=== PATIENT | female | born 1945 | race Caucasian/White ===

== ENCOUNTER 2016-04-30 16:02 | Emergency (ER) | payer MEDICARE, OTHER ==
--- NOTE | 2016-04-30 16:14 | ERPHSYRPT ---
- History of Present Illness Time Seen by Provider: 04/30/16 16:09 Source: patient, EMS Exam Limitations: no limitations Physician History: The patient is a 71-year-old female brought in by ambulance from [place] where the patient tripped in the parking lot of a grocery store and struck her right side of her face on the asphalt. She complains of right cheek and facial pain around the right eye. Her most severe pain is in her right upper arm. She did not lose consciousness. She's had a similar incident of the right eye in the past where she's had surgery to repair the orbit. Last week she had a cardiac catheter. Her past medical history significant for repair of her right orbital fracture and diabetes. Occurred: just prior to arrival Reason for Fall: tripped Injuries/Pain Location: face Loss of Consciousness: no loss of consciousness Quality: sharpness Severity of Pain-Max: severe Severity of Pain-Current: severe Modifying Factors: Improves With: immobilization Associated Symptoms (Fall): headache Allergies/Adverse Reactions: adhesive Allergy (Verified 04/30/16 16:15) latex Allergy (Verified 04/30/16 16:15) Penicillins Allergy (Verified 04/30/16 16:15) meperidine HCl [From Demerol] Adverse Reaction (Verified 04/30/16 16:15) nifedipine [From Procardia] Adverse Reaction (Verified 04/30/16 16:15) Home Medications: Chlorthalidone 25 mg PO DAILY 04/30/16 [History] Fluticasone Propionate [Flonase NASAL] 16 gm NS DAILY 04/30/16 [History] Isosorbide Mononitrate 30 mg [Imdur 30 MG] 30 mg PO DAILY 04/30/16 [History ] Hx Tetanus, Diphtheria Vaccination/Date Given: Yes Hx Influenza Vaccination/Date Given: No Hx Pneumococcal Vaccination/Date Given: Yes (Prevnar 13 on 09/14/2015) - Review of Systems Constitutional: No Fever, No Chills Eyes: Eye Pain Ears, Nose, & Throat: No Symptoms Respiratory: No Cough, No Dyspnea Cardiac: No Chest Pain, No Edema, No Syncope Abdominal/Gastrointestinal: No Abdominal Pain, No Nausea, No Vomiting, No Diarrhea Genitourinary Symptoms: No Dysuria Musculoskeletal: Fall, Injury Skin: No Rash Neurological: No Dizziness, No Focal Weakness, No Sensory Changes Psychological: No Symptoms Endocrine: No Symptoms Hematologic/Lymphatic: No Symptoms Immunological/Allergic: No Symptoms All Other Systems: Reviewed and Negative - Past Medical History Pertinent Past Medical History: Yes Neurological History: No Pertinent History ENT History: Cataracts Cardiac History: Hypertension, Myocardial Infarction ([place]) Respiratory History: Sleep Apnea Endocrine Medical History: Diabetes Type II Musculoskeletal History: Arthritis GI Medical History: Gallbladder Disease History: No Pertinent History Psycho-Social History: No Pertinent History Female Reproductive Disorders: No Pertinent History Other Medical History: CPAP, double by pass, [address] in left ventrical, - Past Surgical History Past Surgical History: Yes Neuro Surgical History: No Pertinent History Cardiac: CABG, Cardiac Catheterization, Cardiac Stent Respiratory: No Pertinent History Gastrointestinal: Cholecystectomy Genitourinary: No Pertinent History Musculoskeletal: Joint Replacement Female Surgical History: Hysterectomy Other Surgical History: KNEE REPLACEMENT - APPENDECTOMY - Social History Smoking Status: Former smoker Exposure to second hand smoke: No Drug Use: none Patient Lives Alone: No - Female History Hx Now: No - Nursing Vital Signs Nursing Vital Signs: Initial Vital Signs Pulse Rate 90 Respiratory Rate 16 Blood Pressure [] 157/83 Pain Intensity 10 - Manuel Coma Score Best Eye Response (Manuel): (4) open spontaneously Best Verbal Response (Manuel): (5) oriented Best Motor Response (Manuel): (6) obeys commands [place] Total: 15 - Physical Exam General Appearance: mild distress Head Injury: swelling, tenderness (right cheek) Eye Exam: PERRL/EOMI, eyes nml inspection ENT Exam: airway nml Neck Exam: normal inspection, No tenderness Respiratory/Chest Exam: normal breath sounds, No chest tenderness, No respiratory distress Cardiovascular Exam: normal heart sounds, regular rate/rhythm Gastrointestinal Exam: soft, No tenderness, No distention, No guarding, No ecchymosis Rectal Exam: not done Back Exam: normal inspection, No vertebral tenderness Extremity Exam: pelvis stable, limited range of motion (right upper arm), evidence of injury, pain with movement, No deformities Neurologic Exam: alert, oriented x 3, cooperative, sensation nml, No motor deficits Skin Exam: normal color, warm, dry SpO2 Interpretation: normal Oxygen Delivery: Room Air - Radiology Exams Right Humerus X-ray Interpretation: Teleradiologist Report, Displaced Fracture Left Hand X-ray Interpretation: Interpreted by me, Negative, No Fracture - CT Exams Cervical Spine CT Interpretation: Negative, Tele-radiologist Report, Other (neg) Head CT Interpretation: Negative, Tele-radiologist Report Other CT Interpretation: Tele-radiologist Report, Other (maxillary sinus fx) Ordered Tests: Active Orders 24 hr Category Date Time Status IV Insertion STAT Care 04/30/16 16:59 Active CERVICAL SPINE WO CONTRAST [CT] Stat Exams 04/30/16 16:13 Completed FACIAL BONES WO CONTRAST [CT] Stat Exams 04/30/16 16:12 Completed HAND (MINIMUM 3 VIEWS) Stat Exams 04/30/16 17:27 Taken HEAD WITHOUT CONTRAST [CT] Stat Exams 04/30/16 16:11 Completed HUMERUS Stat Exams 04/30/16 16:11 Completed Medication Summary Discontinued Medications Generic Name Dose Route Start Last Admin Trade Name Freq PRN Reason Stop Dose Admin Morphine Sulfate 4 mg 04/30/16 17:11 04/30/16 17:15 Morphine Sulfate 4 Mg Inj IV 04/30/16 17:12 4 mg STAT ONE Administration Morphine Sulfate Confirm 04/30/16 17:14 Morphine Sulfate 4 Mg Inj Administered 04/30/16 17:15 Dose 4 mg .ROUTE .STK-MED ONE Ondansetron HCl 4 mg 04/30/16 17:11 04/30/16 17:15 Zofran 4 Mg/2 Ml Vial IV 04/30/16 17:12 4 mg STAT ONE Administration Ondansetron HCl Confirm 04/30/16 17:14 Zofran 4 Mg/2 Ml Vial Administered 04/30/16 17:15 Dose 4 mg .ROUTE .STK-MED ONE - Progress Progress: improved - Departure Time of Disposition: 17:57 Departure Disposition: Transfer (transfer to [facility] ED per Dr Sandy.) Clinical Impression: Humerus fracture, Maxillary sinus fracture Condition: Stable Critical Care Time: No Referrals: SULAIMAN MITCHELL MD [Primary Care Provider] -
--- NOTE | 2016-04-30 17:00 | XRAY ---
Indication: Pain following fall. Comparison: None 2 views of the right humerus demonstrates comminuted humeral head fracture and displaced/angulated subcapital fracture. Humeral head inferiorly displaced concerning for subluxation/dislocation. No other bony, articular, or soft tissue abnormalities.
--- NOTE | 2016-04-30 17:10 | XRAY ---
Indication: Pain following fall. Multiple contiguous axial images obtained through the cervical spine. Sagittal and coronal reformatted images obtained. Comparison: None Axial images negative for acute fracture, suspicious bony lesions, or spinal canal stenosis. Mild multilevel bilateral degenerative facet arthropathy and minimal C4-C7 endplate spurring. Sagittal and coronal reformatted images demonstrates normal alignment with minimal C6-C7 disc space narrowing. No acute compression fracture, subluxation, or jumped facet. Normal-appearing craniocervical junction. Visualized noncontrasted soft tissues demonstrates mild carotid calcifications bilaterally. Base of the brain and lung apices unremarkable. Impression: 1. Negative for acute fracture/subluxation. 2. Multilevel degenerative changes. CTDI 135.85
[2016-04-30] MEDS ORDERED: MORPHINE SULFATE 4 MG INJ IV ONE ×2 (17:11→18:42)
[2016-04-30] MEDS ORDERED: Zofran 4 MG/2 ML VIAL IV ONE (17:11)
[2016-04-30] MEDS ORDERED: Zofran 4 MG/2 ML VIAL ONE (17:14)
[2016-04-30] MEDS ORDERED: MORPHINE SULFATE 4 MG INJ ONE ×2 (17:14→18:43)
--- NOTE | 2016-04-30 17:18 | XRAY ---
Indication: Facial injury following fall. Multiple contiguous axial images obtained through the facial bones. Sagittal and coronal reformatted images obtained. Comparison: None There is right facial soft tissue swelling/bruising. Mild depressed acute fracture involving the anterior wall of the right maxillary sinus with fluid leveling. There is also remote appearing fracture involving the floor the right orbit. No extraocular muscle entrapment. No other acute fracture, suspicious bony lesions, or radiopaque foreign body. Minimal mucosal thickening of both ethmoid sinuses. Remaining left maxillary sinus, visualized frontal sinuses, and mastoid air cells are clear. Visualized noncontrasted soft tissues including orbits and base of the brain unremarkable. Impression: Depressed acute fracture involving the anterior wall of the right maxillary sinus with fluid leveling and facial soft tissue swelling/bruising. Incidental old right orbital floor fracture. CTDI 59.47
--- NOTE | 2016-04-30 17:20 | XRAY ---
Indication: Status post fall. Multiple contiguous axial images obtained through the head without contrast. Comparison: None Age-appropriate global atrophy and minimal periventricular degenerative microvascular ischemia. No acute intracranial hemorrhage, abnormal extra-axial fluid collection, or mass effect. Fourth ventricle is midline without hydrocephalus. Bony calvarium intact. CT facial bones and CT cervical spine reported separately. Impression: Nonacute senile brain. CTDI 51.47
[2016-04-30 18:31] VITALS: BP 162/71; PULSE 92; O2SAT 89
--- NOTE | 2016-05-01 08:37 | XRAY ---
Indication: Pain following fall. Comparison: None 3 views of the left hand demonstrates advanced degenerative changes of the first metacarpal multangular articulation, radiocarpal degenerative joint space narrowing, and a few tiny soft tissue calcified granulomas. No acute findings or suspicious bony lesions.
== END 2016-04-30 18:52 | disposition short-term general hospital (02) ==
LOC: ED 16:02
DX: S42.291A Other displaced fracture of upper end of right humerus, initial encounter for closed fracture (principal); S02.40CA Maxillary fracture, right side, initial encounter for closed fracture; W01.0XXA Fall on same level from slipping, tripping and stumbling without subsequent striking against object, initial encounter; Y93.01 Activity, walking, marching and hiking; Y92.512 Supermarket, store or market as the place of occurrence of the external cause; R51 Headache; E11.9 Type 2 diabetes mellitus without complications; I10 Essential (primary) hypertension; I25.2 Old myocardial infarction
CPT/HCPCS: 36000; 70450; 70486; 72125; 73060; 73130; 96374; 96375; 96376; 99284; 99285; J2270; J2405

== ENCOUNTER 2017-07-25 22:18 | Emergency (ER) | payer MEDICARE, OTHER ==
[2017-07-25 22:34] VITALS: BP 162/93; PULSE 66; O2SAT 95
--- NOTE | 2017-07-25 22:44 | ERPHSYRPT ---
- History of Present Illness Time Seen by Provider: 07/25/17 22:41 Source: patient Exam Limitations: no limitations Patient Subjective Stated Complaint: pt states she tripped on a rug and fell, landing on her right knee and right elbow; pt has h/o bilateral knee replacement ; denies hitting her head or any loss consciousness. Triage Nursing Assessment: pt a& x3; skin p, w, & d; ecchymosis and +2 edema noted to right knee; minor abrasion to right elbow; no other distress noted; assisted to room per wheelchair; family at bedside. Physician History: pt states she tripped on a rug and fell, landing on her right knee and right elbow; pt has h/o bilateral knee replacement; Method of Injury: fell Occurred: just prior to arrival Lower Extremities Pain: knee: right Allergies/Adverse Reactions: adhesive Allergy (Verified 07/25/17 22:34) latex Allergy (Verified 07/25/17 22:34) Penicillins Allergy (Verified 07/25/17 22:34) meperidine HCl [From Demerol] Adverse Reaction (Verified 07/25/17 22:34) nifedipine [From Procardia] Adverse Reaction (Verified 07/25/17 22:34) Home Medications: Fluticasone Propionate [Flonase NASAL] 16 gm NS DAILY 04/30/16 [History] Isosorbide Mononitrate 30 mg [Imdur 30 MG] 30 mg PO DAILY 04/30/16 [History ] Acetaminophen 325 mg [Tylenol 325 mg] 650 mg PO Q6H PRN PRN 07/25/17 [ History] Amlodipine Besylate 5 mg [Norvasc 5 mg] 5 mg PO DAILY 07/25/17 [History] Apixaban [Eliquis 5 mg Tablet] 5 mg PO BID 07/25/17 [History] Aspirin 81 gm Chew [Baby Aspirin 81 mg Chew] 81 mg PO DAILY 07/25/17 [ History] Atorvastatin Calcium [Lipitor 40Mg] 40 mg PO DAILY 07/25/17 [History] Glipizide [Glipizide ER] 10 mg PO BID 07/25/17 [History] Magnesium Oxide 400 mg [Mag-Ox 400] 400 mg PO DAILY 07/25/17 [History] Metformin HCl 1,000 mg PO BID 07/25/17 [History] Nitroglycerin 0.4 mg Tablet [Nitrostat 0.4 MG Tablet] 0.4 mg PO Q5MIN PRN MR X 3 PRN 07/25/17 [History] Omeprazole 20 MG [Prilosec 20 mg] 20 mg PO DAILY 07/25/17 [History] Pregabalin [Lyrica 150Mg] 150 mg PO BID 07/25/17 [History] Sitagliptin Phosphate 50 MG [Januvia 50 MG] 50 mg PO DAILY 07/25/17 [ History] Torsemide 20 mg PO DAILY 07/25/17 [History] Hx Tetanus, Diphtheria Vaccination/Date Given: Yes Hx Influenza Vaccination/Date Given: Yes Hx Pneumococcal Vaccination/Date Given: Yes Immunizations Up to Date: Yes - Review of Systems Constitutional: No Symptoms Eyes: No Symptoms Ears, Nose, & Throat: No Symptoms Respiratory: No Symptoms Cardiac: No Symptoms Abdominal/Gastrointestinal: No Symptoms Musculoskeletal: Fall, Joint Pain, Joint Swelling Skin: No Symptoms - Past Medical History Pertinent Past Medical History: Yes Neurological History: No Pertinent History ENT History: Cataracts Cardiac History: Hypertension, Myocardial Infarction ([place]) Respiratory History: Sleep Apnea Endocrine Medical History: Diabetes Type II Musculoskeletal History: Arthritis GI Medical History: Gallbladder Disease History: No Pertinent History Psycho-Social History: No Pertinent History Female Reproductive Disorders: No Pertinent History Other Medical History: CPAP, double by pass, [address] in left ventrical, - Past Surgical History Past Surgical History: Yes Neuro Surgical History: No Pertinent History Cardiac: CABG, Cardiac Catheterization, Cardiac Stent Respiratory: No Pertinent History Gastrointestinal: Cholecystectomy Genitourinary: No Pertinent History Musculoskeletal: Joint Replacement Female Surgical History: Hysterectomy Other Surgical History: KNEE REPLACEMENT - APPENDECTOMY - Social History Smoking Status: Former smoker Exposure to second hand smoke: No Drug Use: none Patient Lives Alone: No - Female History Hx Last Menstrual Period: hysterectomy - Nursing Vital Signs Nursing Vital Signs: Initial Vital Signs Temperature 97.5 F 07/25/17 22:24 Pulse Rate 66 07/25/17 22:24 Respiratory Rate 18 07/25/17 22:24 Blood Pressure 162/93 07/25/17 22:24 O2 Sat by Pulse Oximetry 95 05/12/18 22:24 Pain Scale Pain Intensity 8 - Physical Exam General Appearance: no apparent distress Eyes, Ears, Nose, Throat Exam: normal ENT inspection Neck Exam: normal inspection Cardiovascular/Respiratory Exam: chest non-tender Knees Exam: right knee: ecchymosis, joint effusion, soft tissue tenderness, swelling SpO2: 95 Oxygen Delivery: Room Air - Radiology Exams Knee X-ray Interpretation: Reviewed by me, Negative, No Fracture Ordered Tests: Active Orders 24 hr Category Date Time Status KNEE (3 VIEWS) Stat Exams 07/25/17 22:10 Taken - Progress Progress: improved, pain not gone completely Counseled pt/family regarding: diagnosis, need for follow-up, rad results - Departure Time of Disposition: 00:04 Departure Disposition: Home Clinical Impression: Contusion, knee and lower leg Qualifiers: Encounter type: initial encounter Laterality: right Qualified Code(s): S80.01XA - Contusion of right knee, initial encounter; S80.11XA - Contusion of right lower leg, initial encounter; S80.11XA - Contusion of right lower leg, initial encounter Condition: Stable Critical Care Time: No Referrals: SULAIMAN MITCHELL MD [Primary Care Provider] - Instructions: Contusion (DC), Preventing Falls
--- NOTE | 2017-07-26 07:48 | XRAY ---
Indication: Pain, swelling, and bruising following fall. Comparison: June 05, 2013. 3 views of the right knee demonstrates new anterior soft tissue swelling without acute fracture/dislocation. Stable mild osteopenia, total knee arthroplasty with intact, minimal vascular calcifications, medial vascular clips, and medial soft tissue calcified granulomas. No other bony, articular, or soft tissue abnormalities.
== END 2017-07-25 23:15 | disposition home or self-care (01) ==
LOC: ED 22:18
DX: S80.01XA Contusion of right knee, initial encounter (principal); S80.11XA Contusion of right lower leg, initial encounter; M25.561 Pain in right knee; M25.521 Pain in right elbow; Z96.653 Presence of artificial knee joint, bilateral; Z79.82 Long term (current) use of aspirin; Z79.899 Other long term (current) drug therapy; W01.0XXA Fall on same level from slipping, tripping and stumbling without subsequent striking against object, initial encounter
CPT/HCPCS: 73562; 99283

== ENCOUNTER 2020-02-20 14:06 | Observation (INO) | payer MEDICARE, OTHER ==
[2020-02-20] MEDS ORDERED: Sodium Chloride 0.9% 1000 ML 1,000 ML IV SCH (14:45)
[2020-02-20] MEDS ORDERED: DECADRON 10MG INJ. IV ONE (14:48)
[2020-02-20] MEDS ORDERED: Sodium Chloride 0.9% 1000 ML 1,000 ML ONE (15:09)
[2020-02-20] MEDS ORDERED: DECADRON 10MG INJ. ONE (15:09)
[2020-02-20 15:20] LABS: Hematocrit 32.5 % (35-47); Mean Cell Volume 99.7 fl (78-100); Mean Corpuscular Hemoglobin 30.7 pg (26-32); Mean Corpuscular Hgb Concent. 30.8 g/dl (32-36); Mean Platelet Volume 12.1 fl (7.5-11.0); Platelet Count 90 K/mm3 (150-450); Red Blood Count 3.26 M/mm3 (4.1-5.4); Red Cell Distribution Width 15.9 % (11.5-14.0); White Blood Count 3.9 K/mm3 (4.0-10.5)
--- NOTE | 2020-02-20 15:26 | ERPHSYRPT ---
- History of Present Illness Time Seen by Provider: 02/20/20 14:20 Source: patient Exam Limitations: no limitations Patient Subjective Stated Complaint: Pt c/o of shortness of breath, wheezing, loss of taste and smell, diarrhea, pt was around her daughter at [facility] a nd her daughter has tested positive for covid, pt wears 3L NC at home Triage Nursing Assessment: Pt was brought to the ER by a family member, pt immediately went to the restroom to have a bowel movement therefore an EKG was not obtained immediately upon arrival, pts O2 was 82% on room air and was placed on 3L and is now at 95%, landry upper lobes clear, lower lobes diminished, lethargic, pulses normal, cellulitis to landry lower ext, rates chest pain as 4/10 when she coughs, skin n/w/d Physician History: Patient is a 74-year-old female presents to our ED for evaluation of shortness of breath cough chest pain and wheezing. Patient believes that she may have Covid. Patient was exposed to Covid. She also complains of loss of taste and smell. Patient has had multiple bouts of diarrhea as well. Patient states she was exposed to Covid on [facility]. Patient shortness of breath has been progressive. Patient normally wears 3 L of oxygen at home. In spite of wearing her oxygen patient has been experiencing shortness of breath. Upon arrival to our ED patient did not have her oxygen. O2 sat on the monitor was 82% on there. However after application of 3 L oxygen O2 sat increased baseline. Symptoms are constant. Symptoms are moderate in intensity. No specific worsening or improving factors. Patient voices no other complaints or concerns at this time. Timing/Duration: day(s) (3 days ago) Severity: moderate Modifying Factors: Improves With: nothing Associated Symptoms: shortness of breath, cough, other (Area, loss of taste and loss of smell.) Allergies/Adverse Reactions: adhesive Allergy (Verified 02/20/20 14:42) latex Allergy (Verified 02/20/20 14:42) Penicillins Allergy (Verified 02/20/20 14:42) meperidine HCl [From Demerol] Adverse Reaction (Verified 02/20/20 14:42) nifedipine [From Procardia] Adverse Reaction (Verified 02/20/20 14:42) Home Medications: Fluticasone Propionate [Flonase NASAL] 16 gm NS DAILY 04/30/16 [History] Isosorbide Mononitrate 30 mg [Imdur 30 MG] 30 mg PO DAILY 04/30/16 [History] Acetaminophen 325 mg [Tylenol 325 mg] 650 mg PO Q6H PRN PRN 07/25/17 [History] Amlodipine Besylate 5 mg [Norvasc 5 mg] 5 mg PO DAILY 07/25/17 [History] Apixaban [Eliquis 5 mg Tablet] 5 mg PO BID 07/25/17 [History] Aspirin 81 gm Chew [Baby Aspirin 81 mg Chew] 81 mg PO DAILY 07/25/17 [History] Atorvastatin Calcium [Lipitor 40Mg] 40 mg PO DAILY 07/25/17 [History] Glipizide [Glipizide ER] 10 mg PO UD PRN 07/25/17 [History] Magnesium Oxide 400 mg [Mag-Ox 400] 400 mg PO DAILY 07/25/17 [History] Metformin HCl 1,000 mg PO BID 07/25/17 [History] Nitroglycerin 0.4 mg Tablet [Nitrostat 0.4 MG Tablet] 0.4 mg PO Q5MIN PRN MR X 3 PRN 07/25/17 [History] Omeprazole 20 MG [Prilosec 20 mg] 20 mg PO DAILY 07/25/17 [History] Pregabalin [Lyrica 150Mg] 150 mg PO BID 07/25/17 [History] Sitagliptin Phosphate 50 MG [Januvia 50 MG] 50 mg PO DAILY 07/25/17 [History] Torsemide 20 mg PO DAILY 07/25/17 [History] Metoprolol Tartrate 50 mg [Lopressor 50 MG] 50 mg PO BID 02/20/20 [History] Hx Tetanus, Diphtheria Vaccination/Date Given: Yes Hx Influenza Vaccination/Date Given: Yes Hx Pneumococcal Vaccination/Date Given: Yes Travel Risk - International Travel Have you traveled outside of the country in past 3 weeks: No - Coronavirus Screening Are you exhibiting any of the following symptoms?: Yes Symptoms: Fever, Cough: New Onset, Shortness of Breath, Vomiting/Diarrhea, Loss of Taste or Smell Close contact with a COVID-19 positive Pt in past 14-21 Days: Yes - Review of Systems Constitutional: No Symptoms, No Fever, No Chills Eyes: No Symptoms Ears, Nose, & Throat: No Symptoms Respiratory: No Symptoms, No Cough, No Dyspnea Cardiac: No Symptoms, No Chest Pain, No Edema, No Syncope Abdominal/Gastrointestinal: No Symptoms, No Abdominal Pain, No Nausea, No Vomiting, No Diarrhea Genitourinary Symptoms: No Symptoms, No Dysuria Musculoskeletal: No Symptoms, No Back Pain, No Neck Pain Skin: No Symptoms, No Rash Neurological: No Symptoms, No Dizziness, No Focal Weakness, No Sensory Changes Psychological: No Symptoms Endocrine: No Symptoms Hematologic/Lymphatic: No Symptoms Immunological/Allergic: No Symptoms All Other Systems: Reviewed and Negative - Past Medical History Pertinent Past Medical History: Yes Neurological History: No Pertinent History ENT History: Cataracts Cardiac History: Hypertension, Myocardial Infarction ([place]) Respiratory History: Sleep Apnea Endocrine Medical History: Diabetes Type II Musculoskeletal History: Arthritis GI Medical History: Gallbladder Disease History: No Pertinent History Psycho-Social History: No Pertinent History Female Reproductive Disorders: No Pertinent History Other Medical History: CPAP, double by pass, [address] in left ventrical, - Past Surgical History Past Surgical History: Yes Neuro Surgical History: No Pertinent History Cardiac: CABG, Cardiac Catheterization, Cardiac Stent Respiratory: No Pertinent History Gastrointestinal: Appendectomy, Cholecystectomy Genitourinary: No Pertinent History Musculoskeletal: Joint Replacement Female Surgical History: Hysterectomy Other Surgical History: KNEE REPLACEMENT - Social History Smoking Status: Former smoker Exposure to second hand smoke: No Drug Use: none Patient Lives Alone: No - Female History Hx Now: No - Nursing Vital Signs Nursing Vital Signs: Initial Vital Signs Temperature 99.0 F 02/20/20 14:15 Pulse Rate 67 02/20/20 14:15 Respiratory Rate 13 02/20/20 14:15 Blood Pressure 168/76 02/20/20 14:15 O2 Sat by Pulse Oximetry 95 02/20/20 14:15 Pain Scale Pain Intensity 6 - Physical Exam General Appearance: no apparent distress, alert Eye Exam: PERRL/EOMI, eyes nml inspection Ears, Nose, Throat Exam: normal ENT inspection, TMs normal, pharynx normal, moist mucous membranes Neck Exam: normal inspection, non-tender, supple, full range of motion Respiratory Exam: normal breath sounds, lungs clear, No respiratory distress Cardiovascular Exam: regular rate/rhythm, normal heart sounds, normal peripheral pulses Gastrointestinal/Abdomen Exam: soft, normal bowel sounds, No tenderness, No mass Back Exam: normal inspection, normal range of motion, No CVA tenderness, No vertebral tenderness Extremity Exam: normal inspection, normal range of motion, pelvis stable, other (Patient does not have bilateral lower extremity cellulitis. Patient has chronic skin changes from what appears to be venous insufficiency.) Neurologic Exam: alert, oriented x 3, cooperative, normal mood/affect, nml cerebellar function, nml station & gait, sensation nml, No motor deficits Skin Exam: normal color, warm, dry, No rash Lymphatic Exam: No adenopathy SpO2 Interpretation: normal SpO2: 95 O2 Delivery: Room Air - Course Nursing assessment & vital signs reviewed: Yes - Radiology Exams Chest X-ray Interpretation: Teleradiologist Report (Bilateral patchy alveolar opacities. Cardiomegaly) Ordered Tests: Active Orders 24 hr Category Date Time Status Watch Assembly Instructor STAT Care 02/20/20 14:46 Active EKG-ER Only STAT Care 02/20/20 14:44 Active IV Insertion STAT Care 02/20/20 14:44 Active Pulse Oximetry (ED) STAT Care 02/20/20 14:44 Active CHEST 1 VIEW (PORTABLE) Stat Exams 02/20/20 14:46 Completed CBC W DIFF Stat Lab 02/20/20 15:10 Completed CMP Stat Lab 02/20/20 15:10 Completed D-DIMER QUANTITATIVE Stat Lab 02/20/20 15:10 Completed INFLUENZA A+B ADRIAN Stat Lab 02/20/20 15:15 Completed Lactic Acid Stat Lab 02/20/20 14:44 Completed MAGNESIUM Stat Lab 02/20/20 15:10 Completed Manual Differential NC Stat Lab 02/20/20 15:10 Completed TROPONIN Q3H Lab 02/20/20 15:10 Completed TROPONIN Q3H Lab 02/20/20 18:00 Ordered TROPONIN Q3H Lab 02/20/20 21:00 Ordered TROPONIN Q3H Lab 02/21/20 00:00 Ordered TROPONIN Q3H Lab 02/21/20 03:00 Ordered UA W/RFX UR CULTURE Stat Lab 02/20/20 14:46 Ordered Medication Summary Generic Name Dose Route Start Last Admin Trade Name Freq PRN Reason Stop Dose Admin Sodium Chloride 1,000 mls @ 50 mls/hr 02/20/20 14:45 02/20/20 15:11 Sodium Chloride 0.9% 1000 Ml IV 03/21/20 14:44 50 mls/hr .Q20H TANMAY Administration Discontinued Medications Generic Name Dose Route Start Last Admin Trade Name Tk PRN Reason Stop Dose Admin Dexamethasone Sodium Phosphate 8 mg 02/20/20 14:48 02/20/20 15:11 Decadron 10mg Inj. IV 02/20/20 14:49 8 mg STAT ONE Administration Dexamethasone Sodium Phosphate Confirm 02/20/20 15:09 Decadron 10mg Inj. Administered 02/20/20 15:10 Dose 10 mg .ROUTE .[employer] ONE Lab/Rad Data: Laboratory Result Diagrams 02/20/20 15:10 02/20/20 15:10 Laboratory Results 02/20/20 02/20/20 02/20/20 Range/Units 15:15 15:10 15:10 WBC (4.0-10.5) K/mm3 RBC (4.1-5.4) M/mm3 Hgb (12.0-16.0) gm/dl Hct (35-47) % MCV (78-100) fl MCH (26-32) pg MCHC (32-36) g/dl RDW (11.5-14.0) % Plt Count (150-450) K/mm3 MPV (7.5-11.0) fl Segmented Neutrophils (36.0-66.0) % Band Neutrophils (0.0-2.0) % Lymphocytes (Manual) (24-44) % Monocytes (Manual) (0.0-12.0) % Toxic Granulation Platelet Estimate (NORMAL) RBC Morphology Anisocytosis D-Dimer 1961 H* (215-500) ng/mL Sodium (137-145) mmol/L Potassium (3.5-5.1) mmol/L Chloride (98-107) mmol/L Carbon Dioxide (22-30) mmol/L Anion Gap (5-15) MEQ/L BUN (7-17) mg/dL Creatinine (0.52-1.04) mg/dL Estimated GFR ML/MIN Glucose (74-106) mg/dL Lactic Acid (0.4-2.0) Calcium (8.4-10.2) mg/dL Magnesium (1.6-2.3) mg/dL Total Bilirubin (0.2-1.3) mg/dL AST (14-36) U/L ALT (0-35) U/L Alkaline Phosphatase (38-126) U/L Troponin I < 0.012 (0.000-0.034) ng/mL Serum Total Protein (6.3-8.2) g/dL Albumin (3.5-5.0) g/dL Influenza Type A Ag NEGATIVE (NEGATIVE) Influenza Type B Ag NEGATIVE (NEGATIVE) 02/20/20 02/20/20 02/20/20 Range/Units 15:10 15:10 14:44 WBC 3.9 L (4.0-10.5) K/mm3 RBC 3.26 L (4.1-5.4) M/mm3 Hgb 10.0 L (12.0-16.0) gm/dl Hct 32.5 L (35-47) % MCV 99.7 (78-100) fl MCH 30.7 (26-32) pg MCHC 30.8 L (32-36) g/dl RDW 15.9 H (11.5-14.0) % Plt Count 90 L (150-450) K/mm3 MPV 12.1 H (7.5-11.0) fl Segmented Neutrophils 81 H (36.0-66.0) % Band Neutrophils 5 H (0.0-2.0) % Lymphocytes (Manual) 11 L (24-44) % Monocytes (Manual) 3 (0.0-12.0) % Toxic Granulation 1+ Platelet Estimate DECREASED (NORMAL) RBC Morphology ABNORMAL Anisocytosis 1+ D-Dimer (215-500) ng/mL Sodium 140 (137-145) mmol/L Potassium 4.9 (3.5-5.1) mmol/L Chloride 110 H (98-107) mmol/L Carbon Dioxide 21 L (22-30) mmol/L Anion Gap 13.5 (5-15) MEQ/L BUN 28 H (7-17) mg/dL Creatinine 1.37 H (0.52-1.04) mg/dL Estimated GFR 39.9 ML/MIN Glucose 213 H (74-106) mg/dL Lactic Acid 2.2 H (0.4-2.0) Calcium 9.0 (8.4-10.2) mg/dL Magnesium 1.6 (1.6-2.3) mg/dL Total Bilirubin 2.40 H (0.2-1.3) mg/dL AST 26 (14-36) U/L ALT 13 (0-35) U/L Alkaline Phosphatase 94 (38-126) U/L Troponin I (0.000-0.034) ng/mL Serum Total Protein 6.3 (6.3-8.2) g/dL Albumin 3.6 (3.5-5.0) g/dL Influenza Type A Ag (NEGATIVE) Influenza Type B Ag (NEGATIVE) - Progress Progress: improved Progress Note: 02/20/20 17:13 Patient reassessed. She feels better. Work-up reveals Covid positive. Patient has bilateral patchy alveolar opacities consistent with Covid. Case discussed with Dr. Young who accepts admission to observation. D-dimer positive. Patient is on Eliquis. No indication for additional anticoagulation. Discussed with Dr.: Other (Discussed with Dr. Tamez.) Will see patient in: hospital (observation) Counseled pt/family regarding: lab results, diagnosis, rad results - Departure Departure Disposition: Observation Clinical Impression: Leukopenia, Anemia, Thrombocytopenia, Bandemia, Chronic renal insufficiency, Elevated bilirubin, Pneumonia, Cardiomegaly, Osteopenia, Lactic acidosis, Lab test positive for detection of COVID-19 virus Condition: Stable Critical Care Time: No Referrals: DOCTOR,NO FAMILY [Primary Care Provider] -
--- NOTE | 2020-02-20 15:26 | XRAY ---
Indication: Short of breath. Comparison: January 14, 2014. Portable chest now demonstrates subtle bilateral patchy interstitial alveolar opacities without consolidation/large effusion. Stable left costophrenic angle blunting. New cardiomegaly again with CABG. Bony thorax intact with osteopenia, degenerative changes, and right shoulder arthroplasty.
[2020-02-20 15:32] LABS: ALBUMIN 3.6 g/dL (3.5-5.0); ANION GAP 13.5 MEQ/L (5-15); BILIRUBIN,TOTAL 2.4 mg/dL (0.2-1.3); Creatinine 1 1.37 mg/dL (0.52-1.04); EST GLOMERULAR FILTRATION RATE 39.9 ML/MIN; MAGNESIUM 1.6 mg/dL (1.6-2.3); Potassium 4.9 mmol/L (3.5-5.1); Total Protein 6.3 g/dL (6.3-8.2)
[2020-02-20 15:49] LABS: INFLUENZA A NEGATIVE (NEGATIVE); INFLUENZA B NEGATIVE (NEGATIVE)
[2020-02-20 16:25] LABS: ANISOCYTOSIS 1+; BAND 5 % (0.0-2.0); Lymphocytes 11 % (24-44); Monocyte 3 % (0.0-12.0); Neutrophils 81 % (36.0-66.0); Platelet Estimate DECREASED (NORMAL); Total Cells Counted 100; Toxic Granulation 1+
[2020-02-20 18:33] LABS: Appearance SLIGHTLY CLOUDY (CLEAR); Bilirubin NEGATIVE (NEGATIVE); Blood NEGATIVE Ery/ul (0-5); Epithelial Cells RARE /HPF (FEW); Glucose NEGATIVE (NEGATIVE); Hyaline Casts 0-2 /LPF (0-2); Ketones NEGATIVE (NEGATIVE); Leukocyte Esterase NEGATIVE (NEGATIVE); Mucus SLIGHT /HPF (NEGATIVE); Nitrite NEGATIVE (NEGATIVE); Protein,Urine Dip 100 (Negative); Specific Gravity 1.017 (1.005-1.025); Urobilinogen 2 mg/dL (0-1)
[2020-02-20] MEDS ORDERED: Ativan 1 MG PO PRN (18:35)
[2020-02-20] MEDS ORDERED: TYLENOL 325 MG PO PRN (18:36)
[2020-02-20] MEDS ORDERED: REMDESIVIR IV ONE (19:54)
[2020-02-20] MEDS ORDERED: Sodium Chloride 0.9% 250 ML 250 ML IV ONE (19:54)
[2020-02-20] MEDS ORDERED: REMDESIVIR 200 MG in Sodium Chloride 0.9% 250 ML 250 ML IV ONE (20:00)
[2020-02-20] MEDS ORDERED: PROVENTIL Solution 2.5 MG/0.5 ML IH PRN (21:51)
[2020-02-21] MEDS ORDERED: Glucotrol Xl 10 MG PO PRN (03:30)
[2020-02-21] MEDS ORDERED: Nitrostat 0.4 MG Tablet SL PRN (03:35)
[2020-02-21 04:54] LABS: Hematocrit 34.2 % (35-47); Hemoglobin 10.4 gm/dl (12.0-16.0); Mean Cell Volume 100.3 fl (78-100); Mean Corpuscular Hemoglobin 30.5 pg (26-32); Mean Corpuscular Hgb Concent. 30.4 g/dl (32-36); Mean Platelet Volume 11.7 fl (7.5-11.0); Platelet Count 90 K/mm3 (150-450); Red Blood Count 3.41 M/mm3 (4.1-5.4); Red Cell Distribution Width 15.7 % (11.5-14.0); White Blood Count 2.4 K/mm3 (4.0-10.5)
[2020-02-21 05:02] LABS: INR 1.98 (0.8-3.0); PROTIME 22.5 SECONDS (9.95-12.35)
[2020-02-21 05:06] LABS: ALBUMIN 3.5 g/dL (3.5-5.0); ANION GAP 12.2 MEQ/L (5-15); BILIRUBIN,TOTAL 2.1 mg/dL (0.2-1.3); Calcium 9.2 mg/dL (8.4-10.2); Creatinine 1 1.41 mg/dL (0.52-1.04); EST GLOMERULAR FILTRATION RATE 38.6 ML/MIN; Total Protein 6.3 g/dL (6.3-8.2)
[2020-02-21 06:38] LABS: BAND 3 % (0.0-2.0); Basophil 1 % (0.0-1.0); Lymphocytes 11 % (24-44); Monocyte 2 % (0.0-12.0); Neutrophils 83 % (36.0-66.0); Total Cells Counted 100
[2020-02-21 06:40] LABS: Platelet Estimate DECREASED (NORMAL)
[2020-02-21] MEDS: Glucophage 500 MG PO SCH ×2 (08:13→17:13)
[2020-02-21] MEDS: HUMALOG SQ PRN ×3 (08:13→21:23)
[2020-02-21] MEDS ORDERED: DEMADEX 20 MG PO SCH (10:00)
[2020-02-21] MEDS ORDERED: DECADRON 10MG INJ. IV ONE (10:00)
[2020-02-21] MEDS: ECOTRIN 81 MG PO SCH (10:42)
[2020-02-21] MEDS: Lopressor 50 MG PO SCH ×2 (10:42→21:22)
[2020-02-21] MEDS: ZOCOR 20MG PO SCH (10:43)
[2020-02-21] MEDS: Protonix 40MG Tablet PO SCH (10:43)
[2020-02-21] MEDS: MAG-OX 400 PO SCH (10:43)
[2020-02-21] MEDS: Flonase NASAL NS SCH (10:56)
[2020-02-21] MEDS: ELIQUIS 2.5 MG TABLET PO SCH ×2 (10:56→21:22)
[2020-02-21] MEDS: Januvia 50 MG PO SCH (10:57)
[2020-02-21] MEDS: Imdur 30 MG PO SCH (10:57)
[2020-02-21] MEDS: LYRICA 150MG PO SCH ×2 (10:58→21:22)
[2020-02-21] MEDS: NORVASC 5 MG PO SCH (11:04)
--- NOTE | 2020-02-21 15:28 | HP ---
CHIEF COMPLAINT: Shortness of breath, fever, cough, positive COVID test. HISTORY OF PRESENT ILLNESS: The patient is a 74 year old white female, who lives with her of 57 years, who has progressively got worse. Loss taste, diarrhea. She was around her daughter at [facility] who had tested positive for COVID. Normally she uses 3 liters of oxygen for chronic obstructive pulmonary disease at home. She is no longer a smoker. When she came to the emergency room she went to the restroom without her oxygen and came back and her oxygen was 82%. At 3 liters it stabilized up to 95%. She had some diffuse chest pain. She is extremely lethargic, just felt terrible. PAST MEDICAL HISTORY: Diabetes mellitus for over 20 years. Hypertension. Coronary artery disease. Neuropathy. Myocardial infarction numerous years ago. She does have sleep apnea besides chronic obstructive pulmonary disease. PAST SURGICAL HISTORY: Cataract. Cardiac. She had a double bypass in the distant past. She has a stent she said in her left ventricle. Appendectomy. Cholecystectomy. Hip replacement. Hysterectomy. HOME MEDICATIONS: Flonase, Imdur 30, Tylenol, Norvasc 5, Eliquis 5 mg b.i.d., baby aspirin 81, Lipitor 40, Glipizide extended release 10, magnesium oxide 400, Metformin 1,000 b.i.d., Nitro PRN, Prilosec 20 q.d., Lyrica 150 b.i.d. for neuropathy, Januvia 50 q.d., Torsemide 20 q.d. and Lopressor 50 b.i.d. ALLERGIES: PENICILLIN. DEMEROL. NIPHEDIPINE. LATEX. REVIEW OF SYSTEMS: CONSTITUTIONAL: The patient is fatigued, short of breath. No chills. No fever. HEENT: Eyes - No problems seeing. ENT: The patient has no taste, no appetite. No ear pain or soreness of throat. RESPIRATORY: She is not severely short of breath and coughing. She normally uses 3 liters of oxygen at home. CVS: She does have some diffuse chest pain, seems to be more muscular. ABDOMEN: She has had some diarrhea. : No problems urinating. MUSCULOSKELETAL: Just fatigued, a little achy. NEUROLOGIC: She is alert and oriented. No focal cranial nerve weaknesses. Medical Coder equal but weak. Legs are weak but move okay. SOCIAL HISTORY: She lives with her and a daughter who probably does the main care. She needs help at home to walk. PHYSICAL EXAMINATION: Very, weak, tired lady and orientated, very talkative when I raise questions. VITAL SIGNS: Temperature 99F, pulse 70, respirations 14, blood pressure 140/82. O2 saturation 95% on 4 liters. GENERAL APPEARANCE: Looks tired. HEENT: Nothing unusual. NECK: No JVD. CHEST: Normal breath sounds. CVS: Regular rate. No murmurs or gallops. Pulses are good peripherally. BACK: Normal. EXTREMITIES: Warm, dry, pink, obese. I have a feeling that she has very weak muscles. Decreased sensation of the feet. SKIN: No open areas. No rashes. LAB DATA AND TESTS: Chest x-ray bilateral patchy alveolar opacities and cardiomegaly. CBC white count 3.9, hemoglobin 10. Electrolytes were normal with creatinine 1.7. D-dimer 1,900. IMPRESSION: The patient has COVID pneumonia. She has numerous health problems including diabetes mellitus, probably chronic congestive heart failure, chronic obstructive pulmonary disease, coronary artery disease, cardiomyopathy, mild lactic acidosis. PLAN: Will treat with Decadron, Remdesivir. She is anticoagulated already. PROGNOSIS: Guarded due to many health problems and poor health as well as the fact that her D-dimer is markedly elevated. She already has bilateral pneumonia.
--- NOTE | 2020-02-21 15:29 | PROG NOTE ---
CHIEF COMPLAINT: The patient states she feels much better. She slept all night. Her oxygen is 3 liters nasal cannula. She has started eating for the first time in several days. She is going to take a nap. PHYSICAL EXAMINATION: CHEST: Actually clear. CVS: Heart sounds regular. ABDOMEN: Obese. EXTREMITIES: No edema. IMPRESSION: The patient is much improved from last night. She is stable. She is normally on 3 liters. She has COVID pneumonia but doing okay at the present time, will continue the same treatment.
[2020-02-21] MEDS ORDERED: REMDESIVIR 100 MG in Sodium Chloride 0.9% 100 ML IVPB 100 ML IV SCH (18:00)
[2020-02-22 06:04] LABS: Hematocrit 31.9 % (35-47); Hemoglobin 9.7 gm/dl (12.0-16.0); Mean Cell Volume 101.6 fl (78-100); Mean Corpuscular Hemoglobin 30.9 pg (26-32); Mean Corpuscular Hgb Concent. 30.4 g/dl (32-36); Mean Platelet Volume 11.7 fl (7.5-11.0); Platelet Count 108 K/mm3 (150-450); Red Blood Count 3.14 M/mm3 (4.1-5.4); Red Cell Distribution Width 15.9 % (11.5-14.0); White Blood Count 3.8 K/mm3 (4.0-10.5)
[2020-02-22 06:14] LABS: INR 2.14 (0.8-3.0); PROTIME 24.4 SECONDS (9.95-12.35)
[2020-02-22 06:19] LABS: ALBUMIN 3.4 g/dL (3.5-5.0); ANION GAP 12.8 MEQ/L (5-15); BILIRUBIN,TOTAL 1.3 mg/dL (0.2-1.3); Creatinine 1 1.5 mg/dL (0.52-1.04); Potassium 4.9 mmol/L (3.5-5.1); Total Protein 6.1 g/dL (6.3-8.2)
[2020-02-22] MEDS: Glucophage 500 MG PO SCH (09:22)
[2020-02-22] MEDS: LYRICA 150MG PO SCH (09:23)
[2020-02-22] MEDS: MAG-OX 400 PO SCH (09:23)
[2020-02-22] MEDS: NORVASC 5 MG PO SCH (09:23)
[2020-02-22] MEDS: Protonix 40MG Tablet PO SCH (09:23)
[2020-02-22] MEDS: Lopressor 50 MG PO SCH (09:23)
[2020-02-22] MEDS: ELIQUIS 2.5 MG TABLET PO SCH (09:23)
[2020-02-22] MEDS: Januvia 50 MG PO SCH (09:23)
[2020-02-22] MEDS: HUMALOG SQ PRN ×2 (09:23→12:57)
[2020-02-22] MEDS: ZOCOR 20MG PO SCH (09:23)
[2020-02-22] MEDS: Imdur 30 MG PO SCH (09:23)
[2020-02-22] MEDS: ECOTRIN 81 MG PO SCH (09:23)
[2020-02-22] MEDS: Flonase NASAL NS SCH (10:07)
[2020-02-22 12:28] VITALS: BP 132/65; PULSE 69; O2SAT 97
--- NOTE | 2020-02-24 15:37 | DS ---
ADMISSION DIAGNOSES: 1) COVID pneumonia. 2) Chronic obstructive pulmonary disease. 3) Diabetes mellitus. 4) Coronary artery disease. DISCHARGE DIAGNOSES: 1) COVID PNEUMONIA. 2) CHRONIC OBSTRUCTIVE PULMONARY DISEASE. 3) DIABETES MELLITUS. 4) CORONARY ARTERY DISEASE. HOSPITAL COURSE: The patient came in after seven days of increasingly short of breath, unable to get her breath. She is normally on 3 liters of O2 at home for her chronic obstructive pulmonary disease and heart failure. After starting her on the Decadron, Remdesivir and 5 liters oxygen she improved overnight. By the next morning she was talking, very perky, feeling much better and her chest was much clearer. Her O2 saturations were better on 3 liters. Today, she said she feels like normal. She is very perky. Her chest is actually clear. I cut her O2 down to 3 liters which she normally takes at home. She is rarely coughing. The patient is much improved from her COVID pneumonia. Other diseases are stable. I am going to send her home on her home medications plus prednisone 20 mg q.a.m. for 5 and then 10 q.a.m. x5. Asked her to try some Loprox or Mycoskin powder for the rash in the groin. See Dr. Sorenson in two weeks, stay in quarantine for another eight days. I advised her to call an ambulance or come back if she suddenly deteriorates. Certainly she has not much lung capacity but she really looks good. After being stabilized with fluids for one night the first night. A very delightful lady from [place] originally. She has been for 57 years. PROGNOSIS: Fair.
== END 2020-02-22 13:35 | disposition home or self-care (01) ==
LOC: ED 14:06 → MED SURG 17:46
PROVIDERS: ADMIT Family Medicine; ATTEND Family Medicine
DX: U07.1 COVID-19 (principal); J12.89 Other viral pneumonia; E11.9 Type 2 diabetes mellitus without complications; J44.9 Chronic obstructive pulmonary disease, unspecified; R79.1 Abnormal coagulation profile; I25.10 Atherosclerotic heart disease of native coronary artery without angina pectoris; I10 Essential (primary) hypertension; G47.30 Sleep apnea, unspecified; Z79.899 Other long term (current) drug therapy
CPT/HCPCS: 36000; 36415; 71045; 80053; 81001; 82947; 83036; 83605; 83735; 83880; 84484; 85025; 85027; 85379; 85610; 87400; 93041; 93268; 94660; 94760; 94762; 96374; 99285; J1100; J1817; U0003; A9270-GY; G0378

== ENCOUNTER 2020-03-14 16:19 | Inpatient (IN) | payer MEDICARE, OTHER ==
[2020-03-14] MEDS ORDERED: DECADRON 10MG INJ. IV ONE (16:46)
--- NOTE | 2020-03-14 17:16 | ERPHSYRPT ---
- History of Present Illness Time Seen by Provider: 03/14/20 16:21 Source: patient Exam Limitations: no limitations Patient Subjective Stated Complaint: " I was diagnosed with Covid on February 19 and I haven't been getting any better. I still feel short of breath and we ak. I fell at home on the and injured my right arm and shoulder. " Triage Nursing Assessment: Pt presents to ER by ambulance with complaints of shortness of breath. Pt was Covid+ on Feb 19 and admitted to hospital. Sent home on the and had a fall causing injury to the right arm/shoulder. Area is tender to touch. Pt is obese white female appears failure to thrive. Pt is alert and oriented x3, complains of weakness and no energy since Dx with Covid virus. Pt skin is pale, warm, and dry. Pt admits to decreased appetite and oral intake. Pt respirations are slightly labored, lung sounds clear but diminished throughout. Denies nausea or vomiting. States has had diarrhea. Pt is afebrile at this time. Complaining of pain in right arm. Physician History: Patient is here with continued shortness of breath. Patient states that she had Covid and then fell and broke her humerus. This all started around February 20, 2020. She states that she has had continued shortness of breath, right shoulder pain. Patient now has failure to thrive at home. She cannot walk around. She has been on Lasix as needed. However, she still has very swollen legs. She is unable to ambulate at home. She did not do any stay in a custodial or senior care facility. At this point in time she will most likely need admission for failure to thrive. Timing/Duration: week(s) Severity: moderate Modifying Factors: Improves With: other Associated Symptoms: shortness of breath, weakness Allergies/Adverse Reactions: adhesive Allergy (Verified 03/14/20 16:37) latex Allergy (Verified 03/14/20 16:37) Penicillins Allergy (Verified 03/14/20 16:37) meperidine HCl [From Demerol] Adverse Reaction (Verified 03/14/20 16:37) nifedipine [From Procardia] Adverse Reaction (Verified 03/14/20 16:37) Home Medications: Fluticasone Propionate [Flonase NASAL] 16 gm NS DAILY 04/30/16 [History] Isosorbide Mononitrate 30 mg [Imdur 30 MG] 30 mg PO DAILY 04/30/16 [History] Acetaminophen 325 mg [Tylenol 325 mg] 650 mg PO Q6H PRN PRN 07/25/17 [History] Amlodipine Besylate 5 mg [Norvasc 5 mg] 5 mg PO DAILY 07/25/17 [History] Apixaban [Eliquis 5 mg Tablet] 5 mg PO BID 07/25/17 [History] Aspirin 81 gm Chew [Baby Aspirin 81 mg Chew] 81 mg PO DAILY 07/25/17 [History] Atorvastatin Calcium [Lipitor 40Mg] 40 mg PO DAILY 07/25/17 [History] Glipizide [Glipizide ER] 10 mg PO UD PRN 07/25/17 [History] Magnesium Oxide 400 mg [Mag-Ox 400] 400 mg PO DAILY 07/25/17 [History] Metformin HCl 1,000 mg PO BID 07/25/17 [History] Nitroglycerin 0.4 mg Tablet [Nitrostat 0.4 MG Tablet] 0.4 mg PO Q5MIN PRN MR X 3 PRN 07/25/17 [History] Omeprazole 20 MG [Prilosec 20 mg] 20 mg PO DAILY 07/25/17 [History] Pregabalin [Lyrica 150Mg] 150 mg PO BID 07/25/17 [History] Sitagliptin Phosphate 50 MG [Januvia 50 MG] 50 mg PO DAILY 07/25/17 [History] Torsemide 20 mg PO DAILY 07/25/17 [History] Metoprolol Tartrate 50 mg [Lopressor 50 MG] 50 mg PO BID 02/20/20 [Hi story] Hx Tetanus, Diphtheria Vaccination/Date Given: Yes Hx Influenza Vaccination/Date Given: Yes Hx Pneumococcal Vaccination/Date Given: Yes Immunizations Up to Date: Yes Travel Risk - International Travel Have you traveled outside of the country in past 3 weeks: No - Coronavirus Screening Are you exhibiting any of the following symptoms?: Yes Symptoms: Shortness of Breath Close contact with a COVID-19 positive Pt in past 14-21 Days: No - Review of Systems Constitutional: Weakness, No Fever, No Chills Eyes: No Symptoms Ears, Nose, & Throat: No Symptoms Respiratory: Dyspnea, No Cough Cardiac: No Chest Pain, No Edema, No Syncope Abdominal/Gastrointestinal: No Abdominal Pain, No Nausea, No Vomiting, No Diarrhea Genitourinary Symptoms: No Dysuria Musculoskeletal: No Back Pain, No Neck Pain Skin: No Rash Neurological: No Dizziness, No Focal Weakness, No Sensory Changes Psychological: No Symptoms Endocrine: No Symptoms All Other Systems: Reviewed and Negative - Past Medical History Pertinent Past Medical History: Yes Neurological History: No Pertinent History ENT History: Cataracts Cardiac History: Hypertension, Myocardial Infarction ([place]) Respiratory History: Sleep Apnea Endocrine Medical History: Diabetes Type II Musculoskeletal History: Arthritis GI Medical History: Gallbladder Disease History: No Pertinent History Psycho-Social History: No Pertinent History Female Reproductive Disorders: No Pertinent History Other Medical History: CPAP, double by pass, [address] in left ventrical, - Past Surgical History Past Surgical History: Yes Neuro Surgical History: No Pertinent History Cardiac: CABG, Cardiac Catheterization, Cardiac Stent Respiratory: No Pertinent History Gastrointestinal: Appendectomy, Cholecystectomy Genitourinary: No Pertinent History Musculoskeletal: Joint Replacement Female Surgical History: Hysterectomy Other Surgical History: KNEE REPLACEMENT - Social History Smoking Status: Never smoker Exposure to second hand smoke: No Drug Use: none Patient Lives Alone: No - Nursing Vital Signs Nursing Vital Signs: Initial Vital Signs Temperature 97.8 F 03/14/20 16:25 Pulse Rate 75 03/14/20 16:25 Respiratory Rate 22 03/14/20 16:25 Blood Pressure 149/80 03/14/20 16:25 O2 Sat by Pulse Oximetry 93 L 03/14/20 16:25 Pain Scale Pain Intensity 0 - Physical Exam General Appearance: no apparent distress, alert Eye Exam: PERRL/EOMI, eyes nml inspection Ears, Nose, Throat Exam: normal ENT inspection, TMs normal, pharynx normal, moist mucous membranes Neck Exam: normal inspection, non-tender, supple, full range of motion Respiratory Exam: normal breath sounds, crackles/rales, No respiratory distress Cardiovascular Exam: regular rate/rhythm, normal heart sounds, normal peripheral pulses, other (2+ pitting edema) Gastrointestinal/Abdomen Exam: soft, normal bowel sounds, No tenderness, No mass Back Exam: normal inspection, normal range of motion, No CVA tenderness, No vertebral tenderness Extremity Exam: normal inspection, normal range of motion, pelvis stable Neurologic Exam: alert, oriented x 3, cooperative, normal mood/affect, nml cerebellar function, sensation nml, No motor deficits Skin Exam: normal color, warm, dry, No rash Lymphatic Exam: No adenopathy SpO2: 100 - Course Nursing assessment & vital signs reviewed: Yes EKG Interpreted by Me: Sinus Rhythm Ordered Tests: Active Orders 24 hr Category Date Time Status Code Status Order ROUTINE Care 03/14/20 18:15 Ordered EKG-ER Only STAT Care 03/14/20 16:34 Active EKG-ER Only STAT Care 03/14/20 17:59 Active IV Care Q6H Care 03/14/20 18:15 Ordered IV Insertion STAT Care 03/14/20 16:34 Active POCT Glucose Check STAT Care 03/14/20 17:[address] in Observation ROUTINE Care 03/14/20 18:15 Ordered CHEST 1 VIEW (PORTABLE) Stat Exams 03/14/20 17:26 Taken HUMERUS Stat Exams 03/14/20 17:27 Taken SHOULDER Stat Exams 03/14/20 17:26 Taken BLOOD CULTURE Stat Lab 03/14/20 17:08 Received BMP AM.LAB Lab 03/15/20 04:00 Ordered BMP Stat Lab 03/14/20 18:16 Ordered BNP [NT PRO BNP] Stat Lab 03/14/20 18:11 Ordered CBC W DIFF AM.LAB Lab 03/15/20 04:00 Ordered CBC W DIFF Stat Lab 03/14/20 17:00 Completed CMP Stat Lab 03/14/20 17:00 Completed CULTURE,URINE Stat Lab 03/14/20 17:22 Received LIPASE Stat Lab 03/14/20 17:00 Completed Lactic Acid Stat Lab 03/14/20 16:34 Completed TROPONIN Q3H Lab 03/14/20 17:00 Completed TROPONIN Q3H Lab 03/14/20 19:45 Ordered TROPONIN Q3H Lab 03/14/20 22:45 Ordered TROPONIN Q3H Lab 03/15/20 01:45 Ordered TROPONIN Q3H Lab 03/15/20 04:45 Ordered UA W/RFX UR CULTURE Stat Lab 03/14/20 17:22 Completed Medication Summary Generic Name Dose Route Start Last Admin Trade Name Freq PRN Reason Stop Dose Admin Sodium Chloride 1,000 mls @ 75 mls/hr 03/14/20 18:00 03/14/20 18:07 Sodium Chloride 0.9% 1000 Ml IV 04/13/20 17:59 75 mls/hr .[id number] TANMAY Administration Discontinued Medications Generic Name Dose Route Start Last Admin Trade Name Freq PRN Reason Stop Dose Admin Albuterol Sulfate 2.5 mg 03/14/20 17:59 Proventil 2.5 Mg/3 Ml Neb IH 03/14/20 18:00 STAT ONE Calcium Gluconate 1,000 mg 03/14/20 17:59 03/14/20 18:14 Calcium Gluconate 10% 1000 Mg IV 03/14/20 18:00 1,000 mg STAT ONE Administration Calcium Gluconate Confirm 03/14/20 18:04 Calcium Gluconate 10% 1000 Mg Administered 03/14/20 18:05 Dose 1,000 mg IV .STK-MED ONE Dexamethasone Sodium Phosphate 10 mg 03/14/20 16:46 03/14/20 17:32 Decadron 10mg Inj. IV 03/14/20 16:47 10 mg STAT ONE Administration Dexamethasone Sodium Phosphate Confirm 03/14/20 17:30 Decadron 10mg Inj. Administered 03/14/20 17:31 Dose 10 mg .ROUTE .STK-MED ONE Dextrose 50 ml 03/14/20 17:59 03/14/20 18:10 D50w 50 Ml Abboject IV 03/14/20 18:00 50 ml STAT ONE Administration Dextrose Confirm 03/14/20 18:05 D50w 50 Ml Abboject Administered 03/14/20 18:06 Dose 50 ml IV .STK-MED ONE Furosemide 60 mg 03/14/20 18:00 03/14/20 18:15 Furosemide 100mg/10 Ml Vial IV 03/14/20 18:01 60 mg STAT ONE Administration Furosemide Confirm 03/14/20 18:04 Furosemide 100mg/10 Ml Vial Administered 03/14/20 18:05 Dose 100 mg .ROUTE .STK-MED ONE Insulin Human Regular 5 unit 03/14/20 17:59 03/14/20 18:09 Humulin R IV 03/14/20 18:00 5 unit STAT ONE Administration Insulin Human Regular Confirm 03/14/20 18:05 Humulin R Administered 03/14/20 18:06 Dose 5 unit .ROUTE .STK-MED ONE Sodium Bicarbonate 50 meq 03/14/20 17:59 03/14/20 18:12 Sodium Bicarbonate 50 Meq/50 Ml Abboject IV 03/14/20 18:00 50 meq STAT ONE Administration Sodium Bicarbonate Confirm 03/14/20 18:05 Sodium Bicarbonate 50 Meq/50 Ml Abboject Administered 03/14/20 18:06 Dose 50 meq IV .STK-MED ONE Lab/Rad Data: Laboratory Result Diagrams 03/14/20 17:00 03/14/20 17:00 Laboratory Results 03/14/20 03/14/20 03/14/20 Range/Units 17:22 17:00 17:00 WBC (4.0-10.5) K/mm3 RBC (4.1-5.4) M/mm3 Hgb (12.0-16.0) gm/dl Hct (35-47) % MCV (78-100) fl MCH (26-32) pg MCHC (32-36) g/dl RDW (11.5-14.0) % Plt Count (150-450) K/mm3 MPV (7.5-11.0) fl Gran % (36.0-66.0) % Eos # (Auto) (0-0.5) Absolute Lymphs (auto) (1.0-4.6) Absolute Monos (auto) (0.0-1.3) Lymphocytes % (24.0-44.0) % Monocytes % (0.0-12.0) % Eosinophils % (0.00-5.0) % Basophils % (0.0-0.4) % Absolute Granulocytes (1.4-6.9) Basophils # (0-0.4) Sodium 143 (137-145) mmol/L Potassium 6.8 H* (3.5-5.1) mmol/L Chloride 116 H (98-107) mmol/L Carbon Dioxide 22 (22-30) mmol/L Anion Gap 11.7 (5-15) MEQ/L BUN 21 H (7-17) mg/dL Creatinine 1.23 H (0.52-1.04) mg/dL Estimated GFR 45.2 ML/MIN Glucose 183 H (74-106) mg/dL Lactic Acid (0.4-2.0) Calcium 9.4 (8.4-10.2) mg/dL Total Bilirubin 2.30 H (0.2-1.3) mg/dL AST 18 (14-36) U/L ALT 12 (0-35) U/L Alkaline Phosphatase 134 H (38-126) U/L Troponin I < 0.012 (0.000-0.034) ng/mL Serum Total Protein 6.6 (6.3-8.2) g/dL Albumin 3.8 (3.5-5.0) g/dL Lipase 273 (23-300) U/L Urine Color JULY (YELLOW) Urine Appearance SLIGHTLY CLOUDY (CLEAR) Urine pH 5.0 (5-6) Ur Specific [place] 1.020 (1.005-1.025) Urine Protein 100 (Negative) Urine Ketones NEGATIVE (NEGATIVE) Urine Blood NEGATIVE (0-5) Josh/ul Urine Nitrite NEGATIVE (NEGATIVE) Urine Bilirubin NEGATIVE (NEGATIVE) Urine Urobilinogen 4 (0-1) mg/dL Ur Leukocyte Esterase NEGATIVE (NEGATIVE) Urine WBC (Auto) 3-5 (0-5) /HPF Urine RBC (Auto) NONE (0-2) /HPF U Epithel Cells (Auto) RARE (FEW) /HPF Urine Bacteria (Auto) NONE (NEGATIVE) /HPF Urine Mucus (Auto) SLIGHT (NEGATIVE) /HPF Urine Culture Reflexed ORDERED SEPARATELY (NO) Urine Glucose NEGATIVE (NEGATIVE) mg/dL 03/14/20 03/14/20 Range/Units 17:00 16:34 WBC 5.1 (4.0-10.5) K/mm3 RBC 3.28 L (4.1-5.4) M/mm3 Hgb 10.1 L (12.0-16.0) gm/dl Hct 34.3 L (35-47) % MCV 104.6 H (78-100) fl MCH 30.8 (26-32) pg MCHC 29.4 L (32-36) g/dl RDW 17.4 H (11.5-14.0) % Plt Count 128 L (150-450) K/mm3 MPV 11.5 H (7.5-11.0) fl Gran % 69.5 H (36.0-66.0) % Eos # (Auto) 0.12 (0-0.5) Absolute Lymphs (auto) 0.76 L (1.0-4.6) Absolute Monos (auto) 0.62 (0.0-1.3) Lymphocytes % 14.9 L (24.0-44.0) % Monocytes % 12.2 H (0.0-12.0) % Eosinophils % 2.4 (0.00-5.0) % Basophils % 1.0 (0.0-0.4) % Absolute Granulocytes 3.54 (1.4-6.9) Basophils # 0.05 (0-0.4) Sodium (137-145) mmol/L Potassium (3.5-5.1) mmol/L Chloride (98-107) mmol/L Carbon Dioxide (22-30) mmol/L Anion Gap (5-15) MEQ/L BUN (7-17) mg/dL Creatinine (0.52-1.04) mg/dL Estimated GFR ML/MIN Glucose (74-106) mg/dL Lactic Acid 2.0 (0.4-2.0) Calcium (8.4-10.2) mg/dL Total Bilirubin (0.2-1.3) mg/dL AST (14-36) U/L ALT (0-35) U/L Alkaline Phosphatase (38-126) U/L Troponin I (0.000-0.034) ng/mL Serum Total Protein (6.3-8.2) g/dL Albumin (3.5-5.0) g/dL Lipase (23-300) U/L Urine Color (YELLOW) Urine Appearance (CLEAR) Urine pH (5-6) Ur Specific [place] (1.005-1.025) Urine Protein (Negative) Urine Ketones (NEGATIVE) Urine Blood (0-5) Josh/ul Urine Nitrite (NEGATIVE) Urine Bilirubin (NEGATIVE) Urine Urobilinogen (0-1) mg/dL Ur Leukocyte Esterase (NEGATIVE) Urine WBC (Auto) (0-5) /HPF Urine RBC (Auto) (0-2) /HPF U Epithel Cells (Auto) (FEW) /HPF Urine Bacteria (Auto) (NEGATIVE) /HPF Urine Mucus (Auto) (NEGATIVE) /HPF Urine Culture Reflexed (NO) Urine Glucose (NEGATIVE) mg/dL - Progress Progress: improved Progress Note: 03/14/20 17:18 Patient will most likely need admission for failure to thrive. We will do a cardiac work-up, repeat x-rays of the right humerus and shoulder. We will do EKG, labs, chest x-ray. 03/14/20 18:19 ED critical care statement As staff physician, I have provided critical care. Time: 45 mins Criteria for critical illness: Post COVID failure to thrive, hyperkalemia, ROSMERY, acute on chronic respiratory failure Treatment and management provided include: Coordination of management with ETC care team, consultants, and inpatient care team. [id number] assessment of condition and response to therapy. Review and interpretation of emergent diagnostic testing. Medical chart review and completion. Direction and immediate supervision of the following therapy: Critical care was time spent personally by me on the following activities: blood draw for specimens, development of treatment plan with patient or surrogate, discussions with consultants, discussions with primary provider, interpretation of cardiac output measurements, evaluation of patient's response to treatment, examination of patient, obtaining history from patient or surrogate, ordering and performing treatments and interventions, ordering and review of laboratory studies, ordering and review of radiographic studies, pulse oximetry, re-evaluation of patient's condition and review of old charts. This time was independent of all procedures performed. Rahul Bhardwaj I discussed with Dr. Young over the phone. He will admit the patient to his service. After reviewing labs, appropriate imaging, discussion with patient and family. We decided the patient should be admitted to the hospital. I called the inpatient team discussed history, physical and results with them in detail. We decided on the plan of action and admission to [facility]. We agreed on appropriate consults and who would call them. Discussed with Dr.: Other (Hannah) Will see patient in: hospital (full admit) Counseled pt/family regarding: lab results, diagnosis, need for follow-up, rad results - Departure Departure Disposition: Extended Care Facility Clinical Impression: Hyperkalemia, Fluid overload, Hypoxia, Acute and chronic respiratory failure Condition: Good Critical Care Time: Yes Critical Care Time(excluding separately billable procedures): Critical 30-74 mins Referrals: SULAIMAN MITCHELL MD [Primary Care Provider] -
[2020-03-14 17:19] LABS: Absolute Neutrophil Ct (ANC) 3.54 (1.4-6.9); Basophil (Absolute #) 0.05 (0-0.4); Eosinophil % 2.4 % (0.00-5.0); Eosinophil (Absolute #) 0.12 (0-0.5); Hematocrit 34.3 % (35-47); Hemoglobin 10.1 gm/dl (12.0-16.0); Lymphocyte (Absolute #) 0.76 (1.0-4.6); Lymphocytes % 14.9 % (24.0-44.0); Mean Cell Volume 104.6 fl (78-100); Mean Corpuscular Hemoglobin 30.8 pg (26-32); Mean Corpuscular Hgb Concent. 29.4 g/dl (32-36); Mean Platelet Volume 11.5 fl (7.5-11.0); Monocyte (Absolute #) 0.62 (0.0-1.3); Monocytes % 12.2 % (0.0-12.0); Neutrophil % 69.5 % (36.0-66.0); Platelet Count 128 K/mm3 (150-450); Red Blood Count 3.28 M/mm3 (4.1-5.4); Red Cell Distribution Width 17.4 % (11.5-14.0); White Blood Count 5.1 K/mm3 (4.0-10.5)
[2020-03-14] MEDS ORDERED: DECADRON 10MG INJ. ONE (17:30)
[2020-03-14 17:35] LABS: Appearance SLIGHTLY CLOUDY (CLEAR); Bilirubin NEGATIVE (NEGATIVE); Blood NEGATIVE Ery/ul (0-5); Epithelial Cells RARE /HPF (FEW); Glucose NEGATIVE (NEGATIVE); Ketones NEGATIVE (NEGATIVE); Leukocyte Esterase NEGATIVE (NEGATIVE); Mucus SLIGHT /HPF (NEGATIVE); Nitrite NEGATIVE (NEGATIVE); Protein,Urine Dip 100 (Negative); Urobilinogen 4 mg/dL (0-1)
[2020-03-14 17:36] LABS: ALBUMIN 3.8 g/dL (3.5-5.0); ANION GAP 11.7 MEQ/L (5-15); BILIRUBIN,TOTAL 2.3 mg/dL (0.2-1.3); Calcium 9.4 mg/dL (8.4-10.2); Creatinine 1 1.23 mg/dL (0.52-1.04); EST GLOMERULAR FILTRATION RATE 45.2 ML/MIN; Total Protein 6.6 g/dL (6.3-8.2)
[2020-03-14 17:57] LABS: Potassium 6.8 mmol/L (3.5-5.1)
[2020-03-14] MEDS ORDERED: PROVENTIL 2.5 MG/3 ML NEB IH ONE ×2 (17:59→18:22)
[2020-03-14] MEDS ORDERED: SODIUM BICARBONATE 50 MEQ/50 ML ABBOJECT IV ONE ×2 (17:59→18:05)
[2020-03-14] MEDS ORDERED: HUMULIN R IV ONE (17:59)
[2020-03-14] MEDS ORDERED: D50W 50 ml Abboject IV ONE ×2 (17:59→18:05)
[2020-03-14] MEDS ORDERED: Calcium Gluconate 10% 1000 MG IV ONE ×2 (17:59→18:04)
[2020-03-14] MEDS ORDERED: Furosemide 100mg/10 ml Vial IV ONE (18:00)
[2020-03-14] MEDS ORDERED: Sodium Chloride 0.9% 1000 ML 1,000 ML IV SCH ×2 (18:00→20:45)
[2020-03-14] MEDS ORDERED: Furosemide 100mg/10 ml Vial ONE (18:04)
[2020-03-14] MEDS ORDERED: Sodium Chloride 0.9% 1000 ML 1,000 ML ONE (18:05)
[2020-03-14] MEDS ORDERED: HUMULIN R ONE (18:05)
[2020-03-14 19:15] LABS: ANION GAP 11.1 MEQ/L (5-15); Calcium 9.6 mg/dL (8.4-10.2); Creatinine 1 1.24 mg/dL (0.52-1.04); EST GLOMERULAR FILTRATION RATE 44.8 ML/MIN
[2020-03-14 19:26] LABS: Potassium 6.5 mmol/L (3.5-5.1)
[2020-03-14] MEDS ORDERED: Ativan 1 MG PO PRN (20:41)
[2020-03-14] MEDS ORDERED: MORPHINE SULFATE 4 MG INJ IV PRN (20:42)
[2020-03-14] MEDS ORDERED: Lasix 40 MG/4 ML IV SCH (20:45)
[2020-03-15] MEDS ORDERED: Glucotrol Xl 10 MG PO PRN (02:21)
[2020-03-15] MEDS ORDERED: Nitrostat 0.4 MG Tablet SL PRN (02:29)
[2020-03-15 05:44] LABS: Absolute Neutrophil Ct (ANC) 3.35 (1.4-6.9); BASOPHIL % 0.8 % (0.0-0.4); Basophil (Absolute #) 0.03 (0-0.4); Eosinophil (Absolute #) 0 (0-0.5); Hematocrit 33.5 % (35-47); Hemoglobin 10.1 gm/dl (12.0-16.0); Lymphocyte (Absolute #) 0.37 (1.0-4.6); Lymphocytes % 9.7 % (24.0-44.0); Mean Cell Volume 103.1 fl (78-100); Mean Corpuscular Hemoglobin 31.1 pg (26-32); Mean Corpuscular Hgb Concent. 30.1 g/dl (32-36); Mean Platelet Volume 11.8 fl (7.5-11.0); Monocyte (Absolute #) 0.07 (0.0-1.3); Monocytes % 1.8 % (0.0-12.0); Neutrophil % 87.7 % (36.0-66.0); Platelet Count 114 K/mm3 (150-450); Red Blood Count 3.25 M/mm3 (4.1-5.4); Red Cell Distribution Width 17.4 % (11.5-14.0); White Blood Count 3.8 K/mm3 (4.0-10.5)
[2020-03-15 06:12] LABS: ANION GAP 13.1 MEQ/L (5-15); Calcium 9.4 mg/dL (8.4-10.2); Creatinine 1 1.19 mg/dL (0.52-1.04)
[2020-03-15 06:18] LABS: Potassium 6.1 mmol/L (3.5-5.1)
[2020-03-15] MEDS ORDERED: TYLENOL 325 MG PO PRN (07:17)
[2020-03-15] MEDS: Glucophage 500 MG PO SCH ×2 (08:17→16:56)
--- NOTE | 2020-03-15 08:43 | XRAY ---
Indication: Short of breath. Pneumonia. Status post fall. Comparison: February 20, 2020. Portable chest again demonstrates cardiomegaly and bibasilar infiltrates/atelectasis with developing small bibasilar effusions concerning for cardiac decompensation/CHF. Superimposed pneumonia not completely excluded.
--- NOTE | 2020-03-15 08:46 | XRAY ---
Indication: Pain following fall. Comparison: None 3 view right shoulder demonstrates osteopenia, mild AC degenerative arthropathy, and total arthroplasty with intact bipolar prosthesis. Medial proximal humerus demonstrates tiny linear calcifications concerning for fracture fragments. Comment: Calcifications not reported by interpreting ER clinician. Telephone report was given to Dr. Grey in the ER at 0841 hrs.
--- NOTE | 2020-03-15 08:48 | XRAY ---
Indication: Pain following fall. Comparison: None 2 view right humerus demonstrates osteopenia, mild AC degenerative arthropathy, and total arthroplasty with intact bipolar prosthesis. Medial proximal humerus demonstrates tiny linear calcifications concerning for fracture fragments. Elbow not included in the [id number]. Comment: Calcifications not reported by interpreting ER clinician. Telephone report was given to Dr. Grey in the ER at 0841 hrs.
[2020-03-15] MEDS ORDERED: ZOCOR 20MG PO SCH (10:00)
[2020-03-15] MEDS ORDERED: NORVASC 5 MG PO SCH (10:00)
[2020-03-15] MEDS ORDERED: Lasix 40 MG/4 ML IV SCH (10:00)
[2020-03-15] MEDS ORDERED: Toprol Xl 50 MG PO SCH (10:00)
[2020-03-15 10:01] LABS: Slide Review 1 YES
[2020-03-15] MEDS: Lopressor 50 MG PO SCH ×2 (12:28→22:14)
[2020-03-15] MEDS: ELIQUIS 2.5 MG TABLET PO SCH ×2 (12:28→21:55)
[2020-03-15] MEDS: MAG-OX 400 PO SCH (12:28)
[2020-03-15] MEDS: ECOTRIN 81 MG PO SCH (12:29)
[2020-03-15] MEDS: Januvia 50 MG PO SCH (12:29)
[2020-03-15] MEDS: Imdur 30 MG PO SCH (12:29)
[2020-03-15] MEDS: Flonase NASAL NS SCH (12:29)
[2020-03-15] MEDS: Protonix 40MG Tablet PO SCH (12:30)
[2020-03-15] MEDS: LYRICA 150MG PO SCH ×2 (12:30→21:55)
[2020-03-15] MEDS: Lasix 40 MG/4 ML IV SCH (14:03)
[2020-03-15] MEDS: ISOPTIN S.R. 240 MG PO SCH ×2 (14:03→22:14)
[2020-03-16] MEDS: Glucophage 500 MG PO SCH ×2 (07:45→17:22)
[2020-03-16 07:54] LABS: Glucose 226 mg/dL (74-106); NT PRO BNP 5690 pg/mL (0-1800)
[2020-03-16] MEDS: Protonix 40MG Tablet PO SCH (10:16)
[2020-03-16] MEDS: ELIQUIS 2.5 MG TABLET PO SCH ×2 (10:16→22:34)
[2020-03-16] MEDS: LYRICA 150MG PO SCH ×2 (10:17→22:30)
[2020-03-16] MEDS: Januvia 50 MG PO SCH (10:17)
[2020-03-16] MEDS: MAG-OX 400 PO SCH (10:17)
[2020-03-16] MEDS: Imdur 30 MG PO SCH (10:17)
[2020-03-16] MEDS: Lopressor 50 MG PO SCH ×2 (10:17→22:34)
[2020-03-16] MEDS: Flonase NASAL NS SCH (10:18)
[2020-03-16] MEDS: Lasix 40 MG/4 ML IV SCH ×3 (10:18→22:16)
[2020-03-16] MEDS: ECOTRIN 81 MG PO SCH (10:19)
[2020-03-16] MEDS: ISOPTIN S.R. 240 MG PO SCH (10:21)
[2020-03-16] MEDS: Zocor 10MG PO SCH (10:26)
[2020-03-16] MEDS: NYSTOP POWDER 15 GM TP SCH ×2 (18:11→22:30)
[2020-03-16] MEDS ORDERED: Lasix 40 MG/4 ML IV ONE (19:15)
[2020-03-17 06:58] LABS: ALBUMIN 3.4 g/dL (3.5-5.0); ANION GAP 12.6 MEQ/L (5-15); BILIRUBIN,TOTAL 1.3 mg/dL (0.2-1.3); Calcium 9.1 mg/dL (8.4-10.2); Creatinine 1 2.83 mg/dL (0.52-1.04); EST GLOMERULAR FILTRATION RATE 17.3 ML/MIN
[2020-03-17 07:11] LABS: Potassium 6.1 mmol/L (3.5-5.1)
[2020-03-17] MEDS: Glucophage 500 MG PO SCH (10:22)
[2020-03-17] MEDS ORDERED: Kayexylate 15 GM/60 ML PO SCH (10:30)
[2020-03-17] MEDS: Zocor 10MG PO SCH (11:44)
[2020-03-17] MEDS: Imdur 30 MG PO SCH (11:44)
[2020-03-17] MEDS: Protonix 40MG Tablet PO SCH (11:44)
[2020-03-17] MEDS: MAG-OX 400 PO SCH (11:44)
[2020-03-17] MEDS: Lopressor 50 MG PO SCH ×2 (11:44→21:34)
[2020-03-17] MEDS: Januvia 50 MG PO SCH (11:44)
[2020-03-17] MEDS: NYSTOP POWDER 15 GM TP SCH ×2 (11:45→21:34)
[2020-03-17] MEDS: LYRICA 150MG PO SCH ×2 (11:46→21:34)
[2020-03-17] MEDS: ECOTRIN 81 MG PO SCH (11:58)
[2020-03-17] MEDS: ELIQUIS 2.5 MG TABLET PO SCH (11:58)
[2020-03-17] MEDS: Flonase NASAL NS SCH (11:59)
[2020-03-17] MEDS: Dopamine 400 MG/D5W 250ML PREMIX 250 ML IV SCH ×2 (12:18→21:32)
[2020-03-17] MEDS: Sodium Chloride 0.9% 1000 ML 1,000 ML IV SCH ×2 (12:20→21:34)
[2020-03-17] MEDS ORDERED: ZOFRAN ODT 4 MG PO PRN (14:11)
[2020-03-18 06:27] LABS: Hematocrit 34.9 % (35-47); Hemoglobin 10.4 gm/dl (12.0-16.0); Mean Cell Volume 104.5 fl (78-100); Mean Corpuscular Hemoglobin 31.1 pg (26-32); Mean Corpuscular Hgb Concent. 29.8 g/dl (32-36); Mean Platelet Volume 11.9 fl (7.5-11.0); Platelet Count 162 K/mm3 (150-450); Red Blood Count 3.34 M/mm3 (4.1-5.4); Red Cell Distribution Width 16.8 % (11.5-14.0)
[2020-03-18 06:41] LABS: ALBUMIN 3.6 g/dL (3.5-5.0); ANION GAP 13.9 MEQ/L (5-15); Calcium 9.1 mg/dL (8.4-10.2); Creatinine 1 3.26 mg/dL (0.52-1.04); EST GLOMERULAR FILTRATION RATE 14.7 ML/MIN; Total Protein 6.5 g/dL (6.3-8.2)
[2020-03-18 06:46] LABS: Potassium 7.2 mmol/L (3.5-5.1)
[2020-03-18] MEDS: Dopamine 400 MG/D5W 250ML PREMIX 250 ML IV SCH ×3 (07:19→18:45)
--- NOTE | 2020-03-18 07:57 | XRAY ---
Indication: Positive Covid 19. Comparison: March 14, 2020. Portable chest unchanged again demonstrating cardiomegaly and bibasilar infiltrates/atelectasis/effusions. No new cardiopulmonary abnormalities.
[2020-03-18] MEDS ORDERED: Kayexylate 15 GM/60 ML PO SCH (08:00)
[2020-03-18] MEDS: Flonase NASAL NS SCH (08:24)
[2020-03-18] MEDS ORDERED: Dopamine 400 MG/D5W 250ML PREMIX 250 ML IV ONE (09:21)
[2020-03-18] MEDS: NYSTOP POWDER 15 GM TP SCH ×2 (09:26→23:54)
[2020-03-18] MEDS: Zocor 10MG PO SCH (09:26)
[2020-03-18] MEDS: Januvia 50 MG PO SCH (09:26)
[2020-03-18] MEDS: Lopressor 50 MG PO SCH ×2 (09:26→23:54)
[2020-03-18] MEDS: LYRICA 150MG PO SCH ×2 (09:26→23:54)
[2020-03-18] MEDS: Protonix 40MG Tablet PO SCH (09:26)
[2020-03-18] MEDS: MAG-OX 400 PO SCH (09:26)
[2020-03-18] MEDS: Imdur 30 MG PO SCH (09:26)
[2020-03-18] MEDS: HUMULIN R SQ PRN (09:30)
[2020-03-18] MEDS: Kayexylate 15 GM/60 ML RC SCH ×2 (13:15→23:02)
[2020-03-18] MEDS: Furosemide 100mg/10 ml Vial IV SCH ×2 (13:33→23:01)
[2020-03-19] MEDS: Sodium Chloride 0.9% 1000 ML 1,000 ML IV SCH (01:45)
[2020-03-19] MEDS: Dopamine 400 MG/D5W 250ML PREMIX 250 ML IV SCH (04:04)
[2020-03-19] MEDS: Kayexylate 15 GM/60 ML RC SCH (05:16)
[2020-03-19] MEDS: Furosemide 100mg/10 ml Vial IV SCH (05:16)
[2020-03-19 07:42] LABS: ALBUMIN 3.5 g/dL (3.5-5.0); ANION GAP 10.8 MEQ/L (5-15); BILIRUBIN,TOTAL 2.3 mg/dL (0.2-1.3); Calcium 9.2 mg/dL (8.4-10.2); Creatinine 1 3.2 mg/dL (0.52-1.04); Potassium 5.9 mmol/L (3.5-5.1); Total Protein 6.5 g/dL (6.3-8.2)
[2020-03-19] MEDS: HUMULIN R SQ PRN (08:27)
[2020-03-19 09:20] LABS: INR 1.54 (0.8-3.0); PROTIME 17.5 SECONDS (9.95-12.35)
[2020-03-19] MEDS: Imdur 30 MG PO SCH (10:54)
[2020-03-19] MEDS: Zocor 10MG PO SCH (10:54)
[2020-03-19] MEDS: Januvia 50 MG PO SCH (10:54)
[2020-03-19] MEDS: LYRICA 150MG PO SCH (10:54)
[2020-03-19] MEDS: Flonase NASAL NS SCH (10:54)
[2020-03-19] MEDS: Lopressor 50 MG PO SCH (10:54)
[2020-03-19] MEDS: MAG-OX 400 PO SCH (10:54)
[2020-03-19] MEDS: Protonix 40MG Tablet PO SCH (10:54)
[2020-03-19] MEDS: NYSTOP POWDER 15 GM TP SCH (11:19)
[2020-03-19 11:21] VITALS: BP 119/63; PULSE 73
[2020-03-19 11:29] VITALS: O2SAT 92
--- NOTE | 2020-03-19 11:42 | HP ---
CHIEF COMPLAINT: "Can't breathe". HISTORY OF PRESENT ILLNESS: The patient was diagnosed with COVID on 02/20/2020. She got here and was stabilized. She had some heart failure along with the COVID pneumonia. She fell on 02/22/2020 and hurt her arm in the elbow area with pain in her shoulder. She was brought in for the pain and increased weakness, shortness of breath. She has been afebrile. She had diarrhea once. In the emergency room she complained of arm pain. She lives at home with her . MEDICATIONS: Tylenol 650 PRN, Colace q.d. to nose, Glipizide 10 q.d., Imdur 30 q.d., lorazepam 1 mg h.d., Mag-Ox 400 q.d., Lopressor 50 b.i.d., morphine PRN pain. Since she has been admitted here: Nitro 0.4 PRN, Nystatin for rash, Zofran 4 mg p.o. every four hours PRN, Protonix 40 q.d., Lyrica 150 b.i.d., Simvastatin 50 q.d., Januvia 50 daily, Eliquis 2.5 tablet 5 mg b.i.d., aspirin 81 q.d., calcium gluconate was given in the emergency room because of hyperkalemia. ALLERGIES: PENICILLIN. DEMEROL. NIFEDIPINE. ADHESIVE TAPE. LATEX. PAST MEDICAL HISTORY: Chronic illnesses - The patient has chronic atrial fibrillation, chronic coronary artery disease, been in heart failure earlier this year and in fact with the last admission; gallbladder disease with gallbladder, I think, was removed. PAST SURGICAL HISTORY: Heart cath. Cardiac stent. Appendectomy. Cholecystectomy. Joint replacement of the knees. Hysterectomy. SOCIAL HISTORY: The patient has never smoked, does not drink. She lives with her . PHYSICAL EXAMINATION: The patient is a frail, tiny, chronically ill appearing 74 year old white female who is alert, orientated and short of breath. VITAL SIGNS: Temperature 98F, pulse 110, respirations 30. ABDOMEN: Soft. No tenderness. EXTREMITIES: +2 edema bilateral. IMPRESSION: 1) The patient has had COVID pneumonia. 2) She has increasing heart failure. 3) She has increasing renal failure with hyperkalemia. She is anticoagulated with Eliquis however INR is going up secondary renal failure is not a factor. PLAN: The patient will be admitted to [facility]. Add Dobutamine probably or Dopamine, use Kayexylate. PROGNOSIS: Guarded.
--- NOTE | 2020-03-20 13:50 | DS ---
DISCHARGE DIAGNOSES: 1) COVID. 2) CONGESTIVE HEART FAILURE. 3) RENAL INSUFFICIENCY. 4) CORONARY ARTERY DISEASE. 5) HYPERCHOLESTEROLEMIA. HOSPITAL COURSE: The patient was found on the floor. She had a sore elbow, could not get her breath. She had been discharged here approximately ten days ago. She originally had COVID diagnosed on 02/20/2020 so she is almost four weeks out at the present date. She was seen in the emergency room. She has congestive heart failure. Chest x-ray showed infiltrates bilateral. Her BNP was elevated and has continued to go up until today it is 8,800. She has been anticoagulated. She was placed on dopamine drip three days ago. She was treated with Lasix 80 every 8 hours. She has finally put out some urine. INR yesterday was 800 in and 1200 out. She did not take in fluids well. She can barely talk but seems to understand the questions and answers "Yes, No or Maybe". Mentally she has decreased and physically she has decreased in the days she has been here. The creatinine has steadily climbed and is up to 3.6 now. Chest x-ray shows bilateral infiltrates, worse yesterday than the day before. Her D-dimer has climbed remarkably high. Potassium was up to 7 with them using Kayexylate rectally. Creatinine today is down to 3.2 and yesterday it was 3.26. Calcium is down to 5.9 and the day before it was 7.2. Bilirubin has crept up to 2.3. BNP 8,800. D-dimer is 5,000. All of the numbers keep getting worse. I talked to the and I talked to Dr. Ojeda, her technical training instructor, who said it was only reasonable he would help take care of her if we can get her into a hospital in [place]. Dr. Grace is her sql architect who I have called but his lines were busy. I will also try to get a hold him also. Presently we are working with the transfer service to get her into [facility] as I believe both of her doctors go there. She has been in failing health for quite some time according to the family and Dr. Ojeda. X-rays of the right humerus shows she has replacement there and a little crack at the stem but there is nothing there surgically or treated with more than just a splint and right now she is not having much pain with it. I have ordered an echo. However that has not been done yet and probably could wait and if we can get her transferred up to [place]. We discontinued her Metformin, discontinued her Eliquis due to her pro-time going up. Kayexylate was switched due to rectally when she could not swallow anymore. She has been on Dopamine for three days. Her Calan was discontinued due to bradycardia. She has history of atrial fibrillation and this will be used to control the rate and she should convert to sinus rhythm at one point. PAST SURGICAL HISTORY: Cardiac stent. Appendectomy. Cholecystectomy. Knee replacement. Hysterectomy in the distant past. MEDICATIONS: At home were Flonase q.d., Imdur 30 q.d., Tylenol PRN, Norvasc 5 q.d., Eliquis 5 mg b.i.d., aspirin 81 q.d., Lipitor 40 q.d., glipizide extended release 10 q.d., Mag-Ox 400 q.d., Metformin 1,000 b.i.d., Nitro PRN, Prilosec 20 q.d., Lyrica 150 q.d., sitagliptin 50 q.d., torsemide 20 q.d., metoprolol 50 b.i.d. ALLERGIES: PENICILLIN. MEPERIDINE. NIFEDIPINE. LATEX. ADHESIVE. DISCHARGE EXAM: On exam she can say "Yes or No" very weakly. She is morbidly obese and cannot really move. Chest sounds rales bilateral. Heart sounds distant, regular and single. Abdomen obese. Extremities warm, dry, trace edema. IMPRESSION: The patient has continued to worsen with her heart failure with secondary renal failure probably and maybe even now the liver having some hepatic problems due to bilirubin going up. She has been anticoagulated. She has been treated before with five days of Decadron IV and Remdesivir PROGNOSIS: Guarded, waiting for transfer arrangements probably to [facility] to Dr. Ojeda and Dr. Grace.
== END 2020-03-19 12:04 | disposition short-term general hospital (02) | DRG 178 ==
LOC: ED 16:19 → UNDOADMIN 19:56 → MED SURG 19:56
PROVIDERS: ADMIT Family Medicine; ATTEND Family Medicine
DX: U07.1 COVID-19 (principal); I48.20 Chronic atrial fibrillation, unspecified; Z79.899 Other long term (current) drug therapy; Z79.01 Long term (current) use of anticoagulants; I50.9 Heart failure, unspecified; I25.10 Atherosclerotic heart disease of native coronary artery without angina pectoris; E78.00 Pure hypercholesterolemia, unspecified; E87.5 Hyperkalemia; N19 Unspecified kidney failure; M25.511 Pain in right shoulder; M79.601 Pain in right arm; E11.9 Type 2 diabetes mellitus without complications; I10 Essential (primary) hypertension
CPT/HCPCS: 36000; 36415; 71045; 73030; 73060; 80048; 80053; 81001; 82947; 83605; 83690; 83880; 84132; 84484; 85025; 85027; 85379; 85610; 87040; 87086; 93005; 94640; 94660; 94762; 96374; 96375; 99285; 99291; U0003; J0610; J1100; J1265; J1815; J1940; J7609; Q0162; A9270-GY; G0378

== ENCOUNTER 2021-05-08 10:09 | Inpatient (IN) | payer MEDICARE, OTHER ==
--- NOTE | 2021-05-08 10:33 | ERPHSYRPT ---
- History of Present Illness Time Seen by Provider: 05/08/21 10:33 Source: patient, EMS, detention records, old records Exam Limitations: clinical condition Physician History: This is a morbidly obese 76-year-old white female detention patient out of [facility] in [facility] who has had some lethargy and confusion. She has urinary frequency as well. Patient was brought to the emergency department via EMS. Temperature was 100.8 F and a blood sugar of 218 in route. Patient has a history of iop-okughyw-upistuqaf diabetes, gastroesophageal refl ux disease, hypertension, sleep apnea. She also has coronary artery disease and is on Eliquis. She has cardiac stents and CABG. Patient also has a chronic left lower extremity leg wound that is being dealt with as an outpatient. Timing/Duration: yesterday Severity: moderate Modifying Factors: Improves With: nothing Associated Symptoms: fever, weakness, other (Lethargy) Allergies/Adverse Reactions: adhesive Allergy (Verified 05/08/21 10:20) latex Allergy (Verified 05/08/21 10:20) Penicillins Allergy (Verified 05/08/21 10:20) meperidine HCl [From Demerol] Adverse Reaction (Verified 05/08/21 10:20) nifedipine [From Procardia] Adverse Reaction (Verified 05/08/21 10:20) Home Medications: Fluticasone Propionate [Flonase NASAL] 16 gm NS DAILY 04/30/16 [History] Isosorbide Mononitrate 30 mg [Imdur 30 MG] 30 mg PO DAILY 04/30/16 [History] Acetaminophen 325 mg [Tylenol 325 mg] 650 mg PO Q6H PRN PRN 07/25/17 [H istory] Apixaban [Eliquis 5 mg Tablet] 5 mg PO BID 07/25/17 [History] Atorvastatin Calcium [Lipitor 40Mg] 40 mg PO DAILY 07/25/17 [History] Glipizide [Glipizide ER] 10 mg PO UD PRN 07/25/17 [History] Magnesium Oxide 400 mg [Mag-Ox 400] 400 mg PO DAILY 07/25/17 [History] Metformin HCl 1,000 mg PO BID 07/25/17 [History] Nitroglycerin 0.4 mg Tablet [Nitrostat 0.4 MG Tablet] 0.4 mg PO Q5MIN PRN MR X 3 PRN 07/25/17 [History] Omeprazole 20 MG [Prilosec 20 mg] 20 mg PO DAILY 07/25/17 [History] Pregabalin [Lyrica 150Mg] 150 mg PO BID 07/25/17 [History] Metoprolol Tartrate 50 mg [Lopressor 50 MG] 50 mg PO BID 02/20/20 [History] Allopurinol 100 mg [Zyloprim 100 mg] 1 ea DAILY 05/08/21 [History] Bisacodyl 10 mg [Dulcolax 10 MG SUPP] 1 ea DAILY 05/08/21 [History] Bisacodyl 5 mg [Dulcolax 5 mg] 10 mg PO DAILY 05/08/21 [History] Bumetanide 1 mg PO DAILY 05/08/21 [History] Cranberry Fruit Concentrate [Azo Cranberry] 1 ea DAILY 05/08/21 [History] Darbepoetin Jose 60 Mcg [Aranesp 60 Mcg Syringe] 1 ea UD 05/08/21 [History] Hydralazine HCl 10 mg PO TID 05/08/21 [History] Insulin Detemir [Levemir] 20 units DAILY 05/08/21 [History] Insulin Lispro [Humalog] 1 unit DAILY 05/08/21 [History] Polyethylene Glycol 3350 [Miralax] 1 ea DAILY 05/08/21 [History] Potassium Chloride [Klor-Con] 1 ea BID 05/08/21 [History] Hx Tetanus, Diphtheria Vaccination/Date Given: Yes Hx Influenza Vaccination/Date Given: Yes Hx Pneumococcal Vaccination/Date Given: Yes Travel Risk - International Travel Have you traveled outside of the country in past 3 weeks: No - Coronavirus Screening Symptoms: Fever Close contact with a COVID-19 positive Pt in past 14-21 Days: No - Review of Systems Constitutional: Fever Eyes: No Symptoms Ears, Nose, & Throat: No Symptoms Respiratory: No Symptoms Cardiac: No Symptoms Abdominal/Gastrointestinal: No Symptoms Genitourinary Symptoms: Frequency Musculoskeletal: No Symptoms Skin: No Symptoms Neurological: Lethargy Psychological: No Symptoms Endocrine: No Symptoms Hematologic/Lymphatic: No Symptoms Immunological/Allergic: No Symptoms All Other Systems: Reviewed and Negative - Past Medical History Pertinent Past Medical History: Yes Neurological History: No Pertinent History ENT History: Cataracts Cardiac History: Hypertension, Myocardial Infarction ([place]) Respiratory History: Sleep Apnea Endocrine Medical History: Diabetes Type II Musculoskeletal History: Arthritis GI Medical History: Gallbladder Disease History: No Pertinent History Psycho-Social History: No Pertinent History Female Reproductive Disorders: No Pertinent History Other Medical History: CPAP, double by pass, [address] in left ventrical, - Past Surgical History Past Surgical History: Yes Neuro Surgical History: No Pertinent History Cardiac: CABG, Cardiac Catheterization, Cardiac Stent Respiratory: No Pertinent History Gastrointestinal: Appendectomy, Cholecystectomy Genitourinary: No Pertinent History Musculoskeletal: Joint Replacement Female Surgical History: Hysterectomy Other Surgical History: KNEE REPLACEMENT, right shoulder replacement - Social History Smoking Status: Never smoker Exposure to second hand smoke: No Drug Use: none Patient Lives Alone: No - Nursing Vital Signs Nursing Vital Signs: Initial Vital Signs O2 Sat by Pulse Oximetry 100 05/08/21 10:10 Pain Scale Pain Intensity 4 - Physical Exam General Appearance: no apparent distress, lethargy, obese Eye Exam: PERRL/EOMI, eyes nml inspection Ears, Nose, Throat Exam: normal ENT inspection, dry mucous membranes Neck Exam: normal inspection, non-tender, supple, full range of motion Respiratory Exam: normal breath sounds, lungs clear, airway intact, No chest tenderness, No respiratory distress Cardiovascular Exam: tachycardia Gastrointestinal/Abdomen Exam: soft, normal bowel sounds, No tenderness Pelvic Exam: not done Rectal Exam: not done Back Exam: normal inspection, normal range of motion, No CVA tenderness, No vertebral tenderness Extremity Exam: pelvis stable, pedal edema, swelling Neurologic Exam: alert, historical guide II-XII nml as tested Skin Exam: other (Left lower extremity skin wound) Lymphatic Exam: No adenopathy SpO2 Interpretation: normal SpO2: 96 O2 Delivery: Room Air - Course Nursing assessment & vital signs reviewed: Yes Ordered Tests: Active Orders 24 hr Category Date Time Status Senior Sales Administrator STAT Care 05/08/21 10:34 Active Catheter-[place] Guerra STAT Care 05/08/21 10:33 Active IV Insertion STAT Care 05/08/21 10:33 Active Pulse Oximetry (ED) STAT Care 05/08/21 10:33 Active BLOOD CULTURE Stat Lab 05/08/21 10:58 Received CBC W DIFF Stat Lab 05/08/21 10:50 Completed CMP Stat Lab 05/08/21 10:50 Completed CULTURE,URINE Stat Lab 05/08/21 10:47 Received CULTURE,WOUND Stat Lab 05/08/21 10:10 Received INFLUENZA A+B ADRIAN Stat Lab 05/08/21 10:47 Completed Lactic Acid Stat Lab 05/08/21 10:50 Completed Lactic Acid Stat Lab 05/08/21 13:32 Received Grand Screen Stat Lab 05/08/21 10:47 Completed UA W/RFX UR CULTURE Stat Lab 05/08/21 10:47 Completed Transfer Order Routine Transfer 05/08/21 Ordered Medication Summary Generic Name Dose Route Start Last Admin Trade Name Freq PRN Reason Stop Dose Admin Sodium Chloride 1,000 mls @ 100 mls/hr 05/08/21 10:45 05/08/21 10:44 Sodium Chloride 0.9% 1000 Ml IV 06/07/21 10:44 100 mls/hr .Q10H TANMAY Administration Discontinued Medications Generic Name Dose Route Start Last Admin Trade Name Freq PRN Reason Stop Dose Admin Acetaminophen 650 mg 05/08/21 10:42 05/08/21 10:44 Acetaminophen 650 Mg Supp.Rect AK 05/08/21 10:43 650 mg STAT ONE Administration Acetaminophen Confirm 05/08/21 10:43 Acetaminophen 650 Mg Supp.Rect Administered 05/08/21 10:44 Dose 650 mg .ROUTE .STK-MED ONE Levofloxacin/Dextrose 500 mg in 100 mls @ 100 mls/hr 05/08/21 11:38 05/08/21 13:05 Levofloxacin 500mg/100ml D5w IV 05/08/21 12:37 Infused STAT STA Infusion Levofloxacin/Dextrose Confirm 05/08/21 11:40 Levofloxacin 500mg/100ml D5w Administered 05/08/21 11:41 Dose 500 mg in 100 mls @ ud IV .STK-MED ONE Lab/Rad Data: Laboratory Result Diagrams 05/08/21 10:50 05/08/21 10:50 Laboratory Results 05/08/21 05/08/21 05/08/21 Range/Units 10:50 10:50 10:50 WBC 7.8 (4.0-10.5) K/mm3 RBC 3.36 L (4.1-5.4) M/mm3 Hgb 10.8 L (12.0-16.0) gm/dl Hct 34.3 L (35-47) % MCV 102.1 H (78-100) fl MCH 32.1 H (26-32) pg MCHC 31.5 L (32-36) g/dl RDW 15.5 H (11.5-14.0) % Plt Count 164 (150-450) K/mm3 MPV 10.9 (7.5-11.0) fl Gran % 82.5 H (36.0-66.0) % Eos # (Auto) 0.02 (0-0.5) Absolute Lymphs (auto) 0.56 L (1.0-4.6) Absolute Monos (auto) 0.75 (0.0-1.3) Lymphocytes % 7.2 L (24.0-44.0) % Monocytes % 9.7 (0.0-12.0) % Eosinophils % 0.3 (0.00-5.0) % Basophils % 0.3 (0.0-0.4) % Absolute Granulocytes 6.41 (1.4-6.9) Basophils # 0.02 (0-0.4) Sodium 143 (137-145) mmol/L Potassium 4.4 (3.5-5.1) mmol/L Chloride 108 H (98-107) mmol/L Carbon Dioxide 25 (22-30) mmol/L Anion Gap 14.4 (5-15) MEQ/L BUN 31 H (7-17) mg/dL Creatinine 2.03 H (0.52-1.04) mg/dL Estimated GFR 25.2 ML/MIN Glucose 162 H (74-106) mg/dL Lactic Acid 2.1 H (0.4-2.0) Calcium 9.3 (8.4-10.2) mg/dL Total Bilirubin 2.10 H (0.2-1.3) mg/dL AST 17 (14-36) U/L ALT 12 (0-35) U/L Alkaline Phosphatase 148 H (38-126) U/L Serum Total Protein 6.7 (6.3-8.2) g/dL Albumin 3.8 (3.5-5.0) g/dL Urine Color (YELLOW) Urine Appearance (CLEAR) Urine pH (5-6) Ur Specific [place] (1.005-1.025) Urine Protein (Negative) Urine Ketones (NEGATIVE) Urine Blood (0-5) Josh/ul Urine Nitrite (NEGATIVE) Urine Bilirubin (NEGATIVE) Urine Urobilinogen (0-1) mg/dL Ur Leukocyte Esterase (NEGATIVE) Urine WBC (Auto) (0-5) /HPF Urine RBC (Auto) (0-2) /HPF U Epithel Cells (Auto) (FEW) /HPF Urine Bacteria (Auto) (NEGATIVE) /HPF Urine Mucus (Auto) (NEGATIVE) /HPF Urine Culture Reflexed (NO) Urine Glucose (NEGATIVE) mg/dL Monoscreen (Negative) Influenza Type A Ag (NEGATIVE) Influenza Type B Ag (NEGATIVE) Group A Strep Antibody (NEGATIVE) 05/08/21 05/08/21 05/08/21 Range/Units 10:47 10:47 10:47 WBC (4.0-10.5) K/mm3 RBC (4.1-5.4) M/mm3 Hgb (12.0-16.0) gm/dl Hct (35-47) % MCV (78-100) fl MCH (26-32) pg MCHC (32-36) g/dl RDW (11.5-14.0) % Plt Count (150-450) K/mm3 MPV (7.5-11.0) fl Gran % (36.0-66.0) % Eos # (Auto) (0-0.5) Absolute Lymphs (auto) (1.0-4.6) Absolute Monos (auto) (0.0-1.3) Lymphocytes % (24.0-44.0) % Monocytes % (0.0-12.0) % Eosinophils % (0.00-5.0) % Basophils % (0.0-0.4) % Absolute Granulocytes (1.4-6.9) Basophils # (0-0.4) Sodium (137-145) mmol/L Potassium (3.5-5.1) mmol/L Chloride (98-107) mmol/L Carbon Dioxide (22-30) mmol/L Anion Gap (5-15) MEQ/L BUN (7-17) mg/dL Creatinine (0.52-1.04) mg/dL Estimated GFR ML/MIN Glucose (74-106) mg/dL Lactic Acid (0.4-2.0) Calcium (8.4-10.2) mg/dL Total Bilirubin (0.2-1.3) mg/dL AST (14-36) U/L ALT (0-35) U/L Alkaline Phosphatase (38-126) U/L Serum Total Protein (6.3-8.2) g/dL Albumin (3.5-5.0) g/dL Urine Color (YELLOW) Urine Appearance (CLEAR) Urine pH (5-6) Ur Specific [place] (1.005-1.025) Urine Protein (Negative) Urine Ketones (NEGATIVE) Urine Blood (0-5) Josh/ul Urine Nitrite (NEGATIVE) Urine Bilirubin (NEGATIVE) Urine Urobilinogen (0-1) mg/dL Ur Leukocyte Esterase (NEGATIVE) Urine WBC (Auto) (0-5) /HPF Urine RBC (Auto) (0-2) /HPF U Epithel Cells (Auto) (FEW) /HPF Urine Bacteria (Auto) (NEGATIVE) /HPF Urine Mucus (Auto) (NEGATIVE) /HPF Urine Culture Reflexed (NO) Urine Glucose (NEGATIVE) mg/dL Monoscreen NEGATIVE (Negative) Influenza Type A Ag NEGATIVE (NEGATIVE) Influenza Type B Ag NEGATIVE (NEGATIVE) Group A Strep Antibody NOT DETECTED (NEGATIVE) 05/08/21 Range/Units 10:47 WBC (4.0-10.5) K/mm3 RBC (4.1-5.4) M/mm3 Hgb (12.0-16.0) gm/dl Hct (35-47) % MCV (78-100) fl MCH (26-32) pg MCHC (32-36) g/dl RDW (11.5-14.0) % Plt Count (150-450) K/mm3 MPV (7.5-11.0) fl Gran % (36.0-66.0) % Eos # (Auto) (0-0.5) Absolute Lymphs (auto) (1.0-4.6) Absolute Monos (auto) (0.0-1.3) Lymphocytes % (24.0-44.0) % Monocytes % (0.0-12.0) % Eosinophils % (0.00-5.0) % Basophils % (0.0-0.4) % Absolute Granulocytes (1.4-6.9) Basophils # (0-0.4) Sodium (137-145) mmol/L Potassium (3.5-5.1) mmol/L Chloride (98-107) mmol/L Carbon Dioxide (22-30) mmol/L Anion Gap (5-15) MEQ/L BUN (7-17) mg/dL Creatinine (0.52-1.04) mg/dL Estimated GFR ML/MIN Glucose (74-106) mg/dL Lactic Acid (0.4-2.0) Calcium (8.4-10.2) mg/dL Total Bilirubin (0.2-1.3) mg/dL AST (14-36) U/L ALT (0-35) U/L Alkaline Phosphatase (38-126) U/L Serum Total Protein (6.3-8.2) g/dL Albumin (3.5-5.0) g/dL Urine Color YELLOW (YELLOW) Urine Appearance TURBID (CLEAR) Urine pH 5.0 (5-6) Ur Specific [place] 1.015 (1.005-1.025) Urine Protein 100 (Negative) Urine Ketones NEGATIVE (NEGATIVE) Urine Blood MODERATE (0-5) Josh/ul Urine Nitrite POSITIVE (NEGATIVE) Urine Bilirubin NEGATIVE (NEGATIVE) Urine Urobilinogen NEGATIVE (0-1) mg/dL Ur Leukocyte Esterase LARGE (NEGATIVE) Urine WBC (Auto) >100 (0-5) /HPF Urine RBC (Auto) 26-50 (0-2) /HPF U Epithel Cells (Auto) RARE (FEW) /HPF Urine Bacteria (Auto) PACKED (NEGATIVE) /HPF Urine Mucus (Auto) SLIGHT (NEGATIVE) /HPF Urine Culture Reflexed ORDERED SEPARATELY (NO) Urine Glucose NEGATIVE (NEGATIVE) mg/dL Monoscreen (Negative) Influenza Type A Ag (NEGATIVE) Influenza Type B Ag (NEGATIVE) Group A Strep Antibody (NEGATIVE) - Departure Departure Disposition: In-patient Admission Clinical Impression: Urinary tract infection, Lethargic Condition: Stable Critical Care Time: No Referrals: SULAIMAN MITCHELL MD [Primary Care Provider] - Follow up/PCP as directed
[2021-05-08] MEDS ORDERED: FEVERALL 650 MG PR ONE (10:42)
[2021-05-08] MEDS ORDERED: FEVERALL 650 MG ONE (10:43)
[2021-05-08] MEDS ORDERED: Sodium Chloride 0.9% 1000 ML 1,000 ML IV SCH (10:45)
[2021-05-08 11:13] LABS: Absolute Neutrophil Ct (ANC) 6.41 (1.4-6.9); Basophil (Absolute #) 0.02 (0-0.4); Eosinophil % 0.3 % (0.00-5.0); Eosinophil (Absolute #) 0.02 (0-0.5); Hematocrit 34.3 % (35-47); Hemoglobin 10.8 gm/dl (12.0-16.0); Lymphocyte (Absolute #) 0.56 (1.0-4.6); Lymphocytes % 7.2 % (24.0-44.0); Mean Cell Volume 102.1 fl (78-100); Mean Corpuscular Hemoglobin 32.1 pg (26-32); Mean Corpuscular Hgb Concent. 31.5 g/dl (32-36); Mean Platelet Volume 10.9 fl (7.5-11.0); Monocyte (Absolute #) 0.75 (0.0-1.3); Monocytes % 9.7 % (0.0-12.0); Neutrophil % 82.5 % (36.0-66.0); Platelet Count 164 K/mm3 (150-450); Red Blood Count 3.36 M/mm3 (4.1-5.4); Red Cell Distribution Width 15.5 % (11.5-14.0); White Blood Count 7.8 K/mm3 (4.0-10.5)
[2021-05-08 11:17] LABS: Appearance TURBID (CLEAR); Bacteria PACKED /HPF (NEGATIVE); Bilirubin NEGATIVE (NEGATIVE); Blood MODERATE Ery/ul (0-5); Epithelial Cells RARE /HPF (FEW); Glucose NEGATIVE (NEGATIVE); Ketones NEGATIVE (NEGATIVE); Leukocyte Esterase LARGE (NEGATIVE); Mucus SLIGHT /HPF (NEGATIVE); Nitrite POSITIVE (NEGATIVE); Protein,Urine Dip 100 (Negative); RBC 26-50 /HPF (0-2); Specific Gravity 1.015 (1.005-1.025); Urobilinogen NEGATIVE mg/dL (0-1); WBC >100 /HPF (0-5)
[2021-05-08 11:23] LABS: ALBUMIN 3.8 g/dL (3.5-5.0); ANION GAP 14.4 MEQ/L (5-15); BILIRUBIN,TOTAL 2.1 mg/dL (0.2-1.3); Calcium 9.3 mg/dL (8.4-10.2); Creatinine 1 2.03 mg/dL (0.52-1.04); EST GLOMERULAR FILTRATION RATE 25.2 ML/MIN; Potassium 4.4 mmol/L (3.5-5.1); Total Protein 6.7 g/dL (6.3-8.2)
[2021-05-08 11:29] LABS: INFLUENZA A NEGATIVE (NEGATIVE); INFLUENZA B NEGATIVE (NEGATIVE)
[2021-05-08] MEDS ORDERED: Levofloxacin 500MG/100ML D5W 500 MG/100 ML BAG IV STA (11:38)
[2021-05-08] MEDS ORDERED: Levofloxacin 500MG/100ML D5W 500 MG/100 ML BAG IV ONE (11:40)
[2021-05-08 13:58] LABS: INFLUENZA A NEGATIVE (NEGATIVE); INFLUENZA B NEGATIVE (NEGATIVE); RESPIRATORY SYNCTIAL VIRUS NEGATIVE (Negative); SARS-CoV-2 Xpert Express NEGATIVE (NEGATIVE)
[2021-05-08 15:30] LABS: Slide Review 1 YES
[2021-05-08] MEDS ORDERED: Zofran 4 MG/2 ML VIAL IV PRN (15:45)
[2021-05-08] MEDS ORDERED: FEVERALL 650 MG PR PRN (15:45)
[2021-05-08] MEDS ORDERED: LEVOFLOXACIN 750MG/150ML D5W 750 MG/150 ML BAG IV SCH (17:00)
[2021-05-08] MEDS ORDERED: DULCOLAX 5 MG PO PRN (17:19)
[2021-05-08] MEDS ORDERED: TYLENOL 325 MG PO PRN (17:19)
[2021-05-08] MEDS: Imdur 30 MG PO SCH (18:26)
[2021-05-08] MEDS: Protonix 40MG Tablet PO SCH (18:26)
[2021-05-08] MEDS: Vitamin B-12 500 MCG PO SCH (18:27)
[2021-05-08] MEDS: MAG-OX 400 PO SCH (18:28)
--- NOTE | 2021-05-08 19:21 | PCM.HP ---
History of Present Illness - Chief Complaint Chief Complaint: urosepsis History of Present Illness: is a 76 year old female who came to the ER today from [facility], her reports that she became very confused and sleepy today, she also was noted to have a fever. Of note she has had urinary frequency the last few days, she received her covid booster shot in the last 2 days as well. She is sleepy but answers questions appropriately. - Review of Systems Constitutional: Fever, Chills Respiratory: No Cough, No Short Of Breath Cardiac: No Chest Pain, No Edema, No Syncope Abdominal/Gastrointestinal: No Abdominal Pain, No Nausea, No Vomiting, No Diarrhea Genitourinary Symptoms: Frequency Skin: Cellulitis All Other Systems: Reviewed and Negative Medications & Allergies Home Medications: Home Medication List Acetaminophen 325 mg [Tylenol 325 mg] 650 mg PO Q4H PRN PRN 07/25/17 [History Confirmed 05/08/21] Apixaban [Eliquis 5 mg Tablet] 5 mg PO BID 07/25/17 [History Confirmed 05/08/21] Atorvastatin Calcium [Lipitor 40Mg] 40 mg PO DAILY 07/25/17 [History Confirmed 05/08/21] Magnesium Oxide 400 mg [Mag-Ox 400] 400 mg PO DAILY 07/25/17 [History Confirmed 05/08/21] Omeprazole 20 MG [Prilosec 20 mg] 20 mg PO DAILY 07/25/17 [History Confirmed 05/08/21] Pregabalin [Lyrica 150Mg] 150 mg PO BID 07/25/17 [History Confirmed 05/08/21] Metoprolol Tartrate 50 mg [Lopressor 50 MG] 50 mg PO BID 02/20/20 [History Confirmed 05/08/21] Allopurinol 100 mg [Zyloprim 100 mg] 1 ea PO DAILY 05/08/21 [History Confirmed 05/08/21] Amino Acids/Protein Hydrolys [Pro-Stat Awc Liquid] 30 ml PO BID 05/08/21 [Histo ry Confirmed 05/08/21] Bisacodyl 10 mg [Dulcolax 10 MG SUPP] 1 ea RC DAILY PRN 05/08/21 [History Confirmed 05/08/21] Bisacodyl 5 mg [Dulcolax 5 mg] 10 mg PO DAILY PRN 05/08/21 [History Con firmed 05/08/21] Bumetanide 1 mg PO DAILY 05/08/21 [History Confirmed 05/08/21] Cranberry Fruit Concentrate [Azo Cranberry] 1 ea PO DAILY 05/08/21 [History Confirmed 05/08/21] Cyanocobalamin (Vitamin B-12) [Vitamin B-12] 1,000 mcg PO DAILY 05/08/21 [History Confirmed 05/08/21] Darbepoetin Jose 60 Mcg [Aranesp 60 Mcg Syringe] 0.3 ml SQ UD 05/08/21 [History Confirmed 05/08/21] Ergocalciferol (Vitamin D2) [Vitamin D2] 50 mcg PO DAILY 05/08/21 [History Confirmed 05/08/21] Glucagon [Gvoke Hypopen] 0.5 mg SQ Q24H PRN 05/08/21 [History Confirmed 05/08/21] Hydralazine HCl 10 mg PO TID 05/08/21 [History Confirmed 05/08/21] Insulin Detemir [Levemir] 20 units SQ DAILY 05/08/21 [History Confirmed 05/08/21] Insulin Lispro 7 unit SQ AC 05/08/21 [History Confirmed 05/08/21] Insulin Lispro [Humalog] 1 unit SQ TID 05/08/21 [History Confirmed 05/08/21] Isosorbide Dinitrate 10 mg PO TID 05/08/21 [History Confirmed 05/08/21] Lanolin Alcohol/Mo/W.pet/[place] [Eucerin Cream] 454 gm TP DAILY 05/08/21 [History Confirmed 05/08/21] Magnesium Hydroxide 30 ml [Milk of Magnesia 30 ml] 30 ml PO Q6HPRN PRN 05/08/21 [History Confirmed 05/08/21] Polyethylene Glycol 3350 [Miralax] 1 ea PO DAILY PRN 05/08/21 [History Confirmed 05/08/21] Potassium Chloride [Klor-Con 10] 10 meq PO BID 05/08/21 [History Confirmed 05/08/21] Sennosides/Docusate Sodium [Senna-S Tablet] 1 each PO BID 05/08/21 [History Confirmed 05/08/21] Allergies/Adverse Reactions: Allergies Allergy/AdvReac Type Severity Reaction Status Date / Time adhesive Allergy Verified 05/08/21 10:20 latex Allergy Verified 05/08/21 10:20 Penicillins Allergy Verified 05/08/21 10:20 meperidine HCl [From Demerol] AdvReac Verified 05/08/21 10:20 nifedipine [From Procardia] AdvReac Verified 05/08/21 10:20 - Past Medical History Past Medical History: Yes Neurological History: No Pertinent History ENT History: Cataracts Cardiac History: Hypertension, Myocardial Infarction ([place]) Respiratory History: Sleep Apnea Endocrine Medical History: Diabetes Type II Musculoskelatal History: Arthritis GI Medical History: Gallbladder Disease History: No Pertinent History Pyscho-Social History: No Pertinent History Reproductive Disorders: No Pertinent History Comment: CPAP, double by pass, [address] in left ventrical, - Female History Hx Last Menstrual Period: psot Are you now?: No - Past Surgical History Past Surgical History: Yes Neuro Surgical History: No Pertinent History Cardiac History: CABG, Cardiac Catheterization, Cardiac Stent Respiratory Surgery: No Pertinent History GI Surgical History: Appendectomy, Cholecystectomy Genitourinary Surgical Hx: No Pertinent History Musculskeletal Surgical Hx: Joint Replacement Female Surgical History: Hysterectomy Other Surgical History: KNEE REPLACEMENT, right shoulder replacement - Social History Smoking Status: Never smoker Exposure to second hand smoke: No Alcohol: None Drug Use: none - Physical Exam Vital Signs: Vital Signs - 24 hr Temp Pulse Resp BP BP Pulse Ox 05/08/21 15:56 98.8 F 77 20 150/70 97 05/08/21 15:45 97 05/08/21 14:41 100 05/08/21 14:40 99.9 F 82 162/92 100 05/08/21 13:35 96 05/08/21 11:20 101.3 F 93 H 18 168/99 100 05/08/21 10:18 99.4 F 107 H 16 182/98 96 05/08/21 10:10 100 General Appearance: no apparent distress, lethargy, obese Neurologic Exam: oriented x 3, cooperative Respiratory Exam: normal breath sounds, lungs clear, No respiratory distress Cardiovascular Exam: regular rate/rhythm, normal heart sounds, normal peripheral pulses Gastrointestinal/Abdomen Exam: soft, normal bowel sounds, No tenderness, No mass Extremity Exam: swelling (1+ edema BLE, erythema and warmth to anterior lower shins bilaterally, superficial open area to left anterior lower doherty) Results - Labs Lab/Micro Results: Lab Results-Last 24 Hours 05/08/21 05/08/21 05/08/21 Range/Units 10:47 10:47 10:47 WBC (4.0-10.5) K/mm3 RBC (4.1-5.4) M/mm3 Hgb (12.0-16.0) gm/dl Hct (35-47) % MCV (78-100) fl MCH (26-32) pg MCHC (32-36) g/dl RDW (11.5-14.0) % Plt Count (150-450) K/mm3 MPV (7.5-11.0) fl Gran % (36.0-66.0) % Eos # (Auto) (0-0.5) Absolute Lymphs (auto) (1.0-4.6) Absolute Monos (auto) (0.0-1.3) Lymphocytes % (24.0-44.0) % Monocytes % (0.0-12.0) % Eosinophils % (0.00-5.0) % Basophils % (0.0-0.4) % Absolute Granulocytes (1.4-6.9) Basophils # (0-0.4) Sodium (137-145) mmol/L Potassium (3.5-5.1) mmol/L Chloride (98-107) mmol/L Carbon Dioxide (22-30) mmol/L Anion Gap (5-15) MEQ/L BUN (7-17) mg/dL Creatinine (0.52-1.04) mg/dL Estimated GFR ML/MIN Glucose (74-106) mg/dL POC Glucometer (74 to 106) mg/dL Lactic Acid (0.4-2.0) Calcium (8.4-10.2) mg/dL Total Bilirubin (0.2-1.3) mg/dL AST (14-36) U/L ALT (0-35) U/L Alkaline Phosphatase (38-126) U/L Serum Total Protein (6.3-8.2) g/dL Albumin (3.5-5.0) g/dL Prealbumin (17.6-36.0) mg/dL Urine Color YELLOW (YELLOW) Urine Appearance TURBID (CLEAR) Urine pH 5.0 (5-6) Ur Specific Lithia 1.015 (1.005-1.025) Urine Protein 100 (Negative) Urine Ketones NEGATIVE (NEGATIVE) Urine Blood MODERATE (0-5) Josh/ul Urine Nitrite POSITIVE (NEGATIVE) Urine Bilirubin NEGATIVE (NEGATIVE) Urine Urobilinogen NEGATIVE (0-1) mg/dL Ur Leukocyte Esterase LARGE (NEGATIVE) Urine WBC (Auto) >100 (0-5) /HPF Urine RBC (Auto) 26-50 (0-2) /HPF U Epithel Cells (Auto) RARE (FEW) /HPF Urine Bacteria (Auto) PACKED (NEGATIVE) /HPF Urine Mucus (Auto) SLIGHT (NEGATIVE) /HPF Urine Culture Reflexed ORDERED SEPARATELY (NO) Urine Glucose NEGATIVE (NEGATIVE) mg/dL Monoscreen (Negative) Influenza Type A Ag NEGATIVE (NEGATIVE) Influenza Type B Ag NEGATIVE (NEGATIVE) RSV (PCR) (Negative) SARS-CoV-2 (PCR) (NEGATIVE) Group A Strep Antibody NOT DETECTED (NEGATIVE) Slides for Path Review 05/08/21 05/08/21 05/08/21 Range/Units 10:47 10:50 10:50 WBC 7.8 (4.0-10.5) K/mm3 RBC 3.36 L (4.1-5.4) M/mm3 Hgb 10.8 L (12.0-16.0) gm/dl Hct 34.3 L (35-47) % MCV 102.1 H (78-100) fl MCH 32.1 H (26-32) pg MCHC 31.5 L (32-36) g/dl RDW 15.5 H (11.5-14.0) % Plt Count 164 (150-450) K/mm3 MPV 10.9 (7.5-11.0) fl Gran % 82.5 H (36.0-66.0) % Eos # (Auto) 0.02 (0-0.5) Absolute Lymphs (auto) 0.56 L (1.0-4.6) Absolute Monos (auto) 0.75 (0.0-1.3) Lymphocytes % 7.2 L (24.0-44.0) % Monocytes % 9.7 (0.0-12.0) % Eosinophils % 0.3 (0.00-5.0) % Basophils % 0.3 (0.0-0.4) % Absolute Granulocytes 6.41 (1.4-6.9) Basophils # 0.02 (0-0.4) Sodium (137-145) mmol/L Potassium (3.5-5.1) mmol/L Chloride (98-107) mmol/L Carbon Dioxide (22-30) mmol/L Anion Gap (5-15) MEQ/L BUN (7-17) mg/dL Creatinine (0.52-1.04) mg/dL Estimated GFR ML/MIN Glucose (74-106) mg/dL POC Glucometer (74 to 106) mg/dL Lactic Acid 2.1 H (0.4-2.0) Calcium (8.4-10.2) mg/dL Total Bilirubin (0.2-1.3) mg/dL AST (14-36) U/L ALT (0-35) U/L Alkaline Phosphatase (38-126) U/L Serum Total Protein (6.3-8.2) g/dL Albumin (3.5-5.0) g/dL Prealbumin (17.6-36.0) mg/dL Urine Color (YELLOW) Urine Appearance (CLEAR) Urine pH (5-6) Ur Specific Lithia (1.005-1.025) Urine Protein (Negative) Urine Ketones (NEGATIVE) Urine Blood (0-5) Josh/ul Urine Nitrite (NEGATIVE) Urine Bilirubin (NEGATIVE) Urine Urobilinogen (0-1) mg/dL Ur Leukocyte Esterase (NEGATIVE) Urine WBC (Auto) (0-5) /HPF Urine RBC (Auto) (0-2) /HPF U Epithel Cells (Auto) (FEW) /HPF Urine Bacteria (Auto) (NEGATIVE) /HPF Urine Mucus (Auto) (NEGATIVE) /HPF Urine Culture Reflexed (NO) Urine Glucose (NEGATIVE) mg/dL Monoscreen NEGATIVE (Negative) Influenza Type A Ag (NEGATIVE) Influenza Type B Ag (NEGATIVE) RSV (PCR) (Negative) SARS-CoV-2 (PCR) (NEGATIVE) Group A Strep Antibody (NEGATIVE) Slides for Path Review YES 05/08/21 05/08/21 05/08/21 Range/Units 10:50 13:12 13:32 WBC (4.0-10.5) K/mm3 RBC (4.1-5.4) M/mm3 Hgb (12.0-16.0) gm/dl Hct (35-47) % MCV (78-100) fl MCH (26-32) pg MCHC (32-36) g/dl RDW (11.5-14.0) % Plt Count (150-450) K/mm3 MPV (7.5-11.0) fl Gran % (36.0-66.0) % Eos # (Auto) (0-0.5) Absolute Lymphs (auto) (1.0-4.6) Absolute Monos (auto) (0.0-1.3) Lymphocytes % (24.0-44.0) % Monocytes % (0.0-12.0) % Eosinophils % (0.00-5.0) % Basophils % (0.0-0.4) % Absolute Granulocytes (1.4-6.9) Basophils # (0-0.4) Sodium 143 (137-145) mmol/L Potassium 4.4 (3.5-5.1) mmol/L Chloride 108 H (98-107) mmol/L Carbon Dioxide 25 (22-30) mmol/L Anion Gap 14.4 (5-15) MEQ/L BUN 31 H (7-17) mg/dL Creatinine 2.03 H (0.52-1.04) mg/dL Estimated GFR 25.2 ML/MIN Glucose 162 H (74-106) mg/dL POC Glucometer (74 to 106) mg/dL Lactic Acid 1.0 (0.4-2.0) Calcium 9.3 (8.4-10.2) mg/dL Total Bilirubin 2.10 H (0.2-1.3) mg/dL AST 17 (14-36) U/L ALT 12 (0-35) U/L Alkaline Phosphatase 148 H (38-126) U/L Serum Total Protein 6.7 (6.3-8.2) g/dL Albumin 3.8 (3.5-5.0) g/dL Prealbumin (17.6-36.0) mg/dL Urine Color (YELLOW) Urine Appearance (CLEAR) Urine pH (5-6) Ur Specific Lithia (1.005-1.025) Urine Protein (Negative) Urine Ketones (NEGATIVE) Urine Blood (0-5) Josh/ul Urine Nitrite (NEGATIVE) Urine Bilirubin (NEGATIVE) Urine Urobilinogen (0-1) mg/dL Ur Leukocyte Esterase (NEGATIVE) Urine WBC (Auto) (0-5) /HPF Urine RBC (Auto) (0-2) /HPF U Epithel Cells (Auto) (FEW) /HPF Urine Bacteria (Auto) (NEGATIVE) /HPF Urine Mucus (Auto) (NEGATIVE) /HPF Urine Culture Reflexed (NO) Urine Glucose (NEGATIVE) mg/dL Monoscreen (Negative) Influenza Type A Ag NEGATIVE (NEGATIVE) Influenza Type B Ag NEGATIVE (NEGATIVE) RSV (PCR) NEGATIVE (Negative) SARS-CoV-2 (PCR) NEGATIVE (NEGATIVE) Group A Strep Antibody (NEGATIVE) Slides for Path Review 05/08/21 05/08/21 Range/Units 16:55 18:00 WBC (4.0-10.5) K/mm3 RBC (4.1-5.4) M/mm3 Hgb (12.0-16.0) gm/dl Hct (35-47) % MCV (78-100) fl MCH (26-32) pg MCHC (32-36) g/dl RDW (11.5-14.0) % Plt Count (150-450) K/mm3 MPV (7.5-11.0) fl Gran % (36.0-66.0) % Eos # (Auto) (0-0.5) Absolute Lymphs (auto) (1.0-4.6) Absolute Monos (auto) (0.0-1.3) Lymphocytes % (24.0-44.0) % Monocytes % (0.0-12.0) % Eosinophils % (0.00-5.0) % Basophils % (0.0-0.4) % Absolute Granulocytes (1.4-6.9) Basophils # (0-0.4) Sodium (137-145) mmol/L Potassium (3.5-5.1) mmol/L Chloride (98-107) mmol/L Carbon Dioxide (22-30) mmol/L Anion Gap (5-15) MEQ/L BUN (7-17) mg/dL Creatinine (0.52-1.04) mg/dL Estimated GFR ML/MIN Glucose (74-106) mg/dL POC Glucometer 95 (74 to 106) mg/dL Lactic Acid (0.4-2.0) Calcium (8.4-10.2) mg/dL Total Bilirubin (0.2-1.3) mg/dL AST (14-36) U/L ALT (0-35) U/L Alkaline Phosphatase (38-126) U/L Serum Total Protein (6.3-8.2) g/dL Albumin (3.5-5.0) g/dL Prealbumin 13.28 L (17.6-36.0) mg/dL Urine Color (YELLOW) Urine Appearance (CLEAR) Urine pH (5-6) Ur Specific Lithia (1.005-1.025) Urine Protein (Negative) Urine Ketones (NEGATIVE) Urine Blood (0-5) Josh/ul Urine Nitrite (NEGATIVE) Urine Bilirubin (NEGATIVE) Urine Urobilinogen (0-1) mg/dL Ur Leukocyte Esterase (NEGATIVE) Urine WBC (Auto) (0-5) /HPF Urine RBC (Auto) (0-2) /HPF U Epithel Cells (Auto) (FEW) /HPF Urine Bacteria (Auto) (NEGATIVE) /HPF Urine Mucus (Auto) (NEGATIVE) /HPF Urine Culture Reflexed (NO) Urine Glucose (NEGATIVE) mg/dL Monoscreen (Negative) Influenza Type A Ag (NEGATIVE) Influenza Type B Ag (NEGATIVE) RSV (PCR) (Negative) SARS-CoV-2 (PCR) (NEGATIVE) Group A Strep Antibody (NEGATIVE) Slides for Path Review Accuchecks Date 05/08/21 Time 18:05 Assessment/Plan (1) Urinary tract infection Current Visit: Yes Status: Acute Assessment & Plan: on levaquin, culture pending Code(s): N39.0 - URINARY TRACT INFECTION, SITE NOT SPECIFIED (2) Bilateral lower leg cellulitis Current Visit: Yes Status: Acute Assessment & Plan: continue levaquin Code(s): L03.116 - CELLULITIS OF LEFT LOWER LIMB; L03.115 - CELLULITIS OF RIGHT LOWER LIMB (3) Chronic kidney disease (CKD) Current Visit: Yes Status: Acute Assessment & Plan: stable at this time Code(s): N18.9 - CHRONIC KIDNEY DISEASE, UNSPECIFIED (4) Diabetes type 2, uncontrolled Current Visit: No Status: Chronic Code(s): E11.65 - TYPE 2 DIABETES MELLITUS WITH HYPERGLYCEMIA
[2021-05-08] MEDS: Sodium Chloride 0.9% 1000 ML 1,000 ML IV SCH (20:39)
[2021-05-08] MEDS: Senokot-S Tablet PO SCH (21:14)
[2021-05-08] MEDS: ELIQUIS 2.5 MG TABLET PO SCH (21:15)
[2021-05-08] MEDS: LYRICA 150MG PO SCH (21:15)
[2021-05-08] MEDS: Lopressor 50 MG PO SCH (21:15)
[2021-05-08] MEDS: Apresoline 25 MG TABLET PO SCH (21:15)
[2021-05-08] MEDS ORDERED: ISORDIL PO SCH (22:00)
[2021-05-08] MEDS ORDERED: NON-FORMULARY ITEM (Apixaban*** [Eliquis 5 Mg Tablet***] 5 MG Tablet) PO SCH (22:00)
[2021-05-08] MEDS ORDERED: NON-FORMULARY ITEM (Hydralazine Hcl [Hydralazine Hcl] 10 MG Tablet) PO SCH (22:00)
[2021-05-09 05:18] LABS: Absolute Neutrophil Ct (ANC) 3.11 (1.4-6.9); Basophil (Absolute #) 0.03 (0-0.4); Eosinophil % 4.5 % (0.00-5.0); Eosinophil (Absolute #) 0.21 (0-0.5); Hematocrit 31.7 % (35-47); Hemoglobin 10.2 gm/dl (12.0-16.0); Lymphocyte (Absolute #) 0.52 (1.0-4.6); Lymphocytes % 11.3 % (24.0-44.0); Mean Cell Volume 101.6 fl (78-100); Mean Corpuscular Hemoglobin 32.7 pg (26-32); Mean Corpuscular Hgb Concent. 32.2 g/dl (32-36); Mean Platelet Volume 11.6 fl (7.5-11.0); Monocyte (Absolute #) 0.75 (0.0-1.3); Monocytes % 16.2 % (0.0-12.0); Neutrophil % 67.4 % (36.0-66.0); Platelet Count 145 K/mm3 (150-450); Red Blood Count 3.12 M/mm3 (4.1-5.4); Red Cell Distribution Width 15.6 % (11.5-14.0); White Blood Count 4.6 K/mm3 (4.0-10.5)
[2021-05-09 05:38] LABS: ANION GAP 10.8 MEQ/L (5-15); Calcium 8.7 mg/dL (8.4-10.2); Creatinine 1 1.69 mg/dL (0.52-1.04); EST GLOMERULAR FILTRATION RATE 31.2 ML/MIN; Potassium 4.2 mmol/L (3.5-5.1); Total Protein 5.6 g/dL (6.3-8.2)
--- NOTE | 2021-05-09 09:29 | PCM.NOTE ---
Date and Time: 05/09/21927 Subjective Assessment: patient more alert and answers questions appropriately this morning, still slow to respond but improved. no new complaints Objective Exam General Appearance: no apparent distress, obese Neurologic Exam: alert, cooperative Skin Exam: normal color, warm, dry Wound Assessment: Skin/Wound Assessment Wound/Incision Assessment Start: 05/08/21 16:55 Text: Status: Active Freq: Q6H Protocol: Document 05/09/21 07:39 (Rec: 05/09/21 08:09 [id number]) Co-Sign 05/09/21 07:39 LINAUBOWSKI Wound/Incision Assessment Left Lower Calf Wound Assessment Shift Assessment Wound Type Abrasion Wound Stage Non Pressure Wound Drainage Amount Minimal Drainage Description Yellow Drainage Odor None/Absent General Appearance Well Approximated,Open to air Wound Bed Greatest Portion Red (Granulation),Shiny Surrounding Tissue [place] Respiratory Exam: normal breath sounds, lungs clear, No respiratory distress Cardiovascular Exam: regular rate/rhythm, normal heart sounds Gastrointestinal/Abdomen Exam: soft, No tenderness, No mass Extremity Exam: pedal edema (mild, slight erythema to lower shins) OBJECTIVE DATA Vital Signs: Vital Signs - 24 hr Temp Pulse Resp BP BP Pulse Ox 05/09/21 07:25 97.7 F 70 20 130/64 94 L 05/09/21 07:15 94 L 05/09/21 04:00 97.7 F 72 18 133/63 93 L 05/08/21 23:49 97.7 F 62 18 122/58 94 L 05/08/21 19:23 97.5 F 80 19 141/70 99 05/08/21 18:59 100 05/08/21 15:56 98.8 F 77 20 150/70 97 05/08/21 15:45 97 05/08/21 14:41 100 05/08/21 14:40 99.9 F 82 162/92 100 05/08/21 13:35 96 05/08/21 11:20 101.3 F 93 H 18 168/99 100 05/08/21 10:18 99.4 F 107 H 16 182/98 96 05/08/21 10:10 100 Pain Assessment - Last Documented Pain Intensity 0 Pain Scale Used 0-10 Pain Scale Intake and Output: Intake & Output 05/06/21 05/07/21 05/08/21 05/09/21 11:59 11:59 11:59 11:59 Intake Total 1354 Output Total 100 600 Balance -100 754 Weight 136.713 kg 131.6 kg Lab Results: Lab Results-Last 24 Hours 05/08/21 05/08/21 05/08/21 Range/Units 10:47 10:47 10:47 WBC (4.0-10.5) K/mm3 RBC (4.1-5.4) M/mm3 Hgb (12.0-16.0) gm/dl Hct (35-47) % MCV (78-100) fl MCH (26-32) pg MCHC (32-36) g/dl RDW (11.5-14.0) % Plt Count (150-450) K/mm3 MPV (7.5-11.0) fl Gran % (36.0-66.0) % Eos # (Auto) (0-0.5) Absolute Lymphs (auto) (1.0-4.6) Absolute Monos (auto) (0.0-1.3) Lymphocytes % (24.0-44.0) % Monocytes % (0.0-12.0) % Eosinophils % (0.00-5.0) % Basophils % (0.0-0.4) % Absolute Granulocytes (1.4-6.9) Basophils # (0-0.4) Sodium (137-145) mmol/L Potassium (3.5-5.1) mmol/L Chloride (98-107) mmol/L Carbon Dioxide (22-30) mmol/L Anion Gap (5-15) MEQ/L BUN (7-17) mg/dL Creatinine (0.52-1.04) mg/dL Estimated GFR ML/MIN Glucose (74-106) mg/dL POC Glucometer (74 to 106) mg/dL Hemoglobin A1c (4.5-6.0) % Lactic Acid (0.4-2.0) Calcium (8.4-10.2) mg/dL Total Bilirubin (0.2-1.3) mg/dL AST (14-36) U/L ALT (0-35) U/L Alkaline Phosphatase (38-126) U/L Serum Total Protein (6.3-8.2) g/dL Albumin (3.5-5.0) g/dL Prealbumin (17.6-36.0) mg/dL Urine Color YELLOW (YELLOW) Urine Appearance TURBID (CLEAR) Urine pH 5.0 (5-6) Ur Specific Cordell 1.015 (1.005-1.025) Urine Protein 100 (Negative) Urine Ketones NEGATIVE (NEGATIVE) Urine Blood MODERATE (0-5) Josh/ul Urine Nitrite POSITIVE (NEGATIVE) Urine Bilirubin NEGATIVE (NEGATIVE) Urine Urobilinogen NEGATIVE (0-1) mg/dL Ur Leukocyte Esterase LARGE (NEGATIVE) Urine WBC (Auto) >100 (0-5) /HPF Urine RBC (Auto) 26-50 (0-2) /HPF U Epithel Cells (Auto) RARE (FEW) /HPF Urine Bacteria (Auto) PACKED (NEGATIVE) /HPF Urine Mucus (Auto) SLIGHT (NEGATIVE) /HPF Urine Culture Reflexed ORDERED SEPARATELY (NO) Urine Glucose NEGATIVE (NEGATIVE) mg/dL Monoscreen (Negative) Influenza Type A Ag NEGATIVE (NEGATIVE) Influenza Type B Ag NEGATIVE (NEGATIVE) RSV (PCR) (Negative) SARS-CoV-2 (PCR) (NEGATIVE) Group A Strep Antibody NOT DETECTED (NEGATIVE) Slides for Path Review 05/08/21 05/08/21 05/08/21 Range/Units 10:47 10:50 10:50 WBC 7.8 (4.0-10.5) K/mm3 RBC 3.36 L (4.1-5.4) M/mm3 Hgb 10.8 L (12.0-16.0) gm/dl Hct 34.3 L (35-47) % MCV 102.1 H (78-100) fl MCH 32.1 H (26-32) pg MCHC 31.5 L (32-36) g/dl RDW 15.5 H (11.5-14.0) % Plt Count 164 (150-450) K/mm3 MPV 10.9 (7.5-11.0) fl Gran % 82.5 H (36.0-66.0) % Eos # (Auto) 0.02 (0-0.5) Absolute Lymphs (auto) 0.56 L (1.0-4.6) Absolute Monos (auto) 0.75 (0.0-1.3) Lymphocytes % 7.2 L (24.0-44.0) % Monocytes % 9.7 (0.0-12.0) % Eosinophils % 0.3 (0.00-5.0) % Basophils % 0.3 (0.0-0.4) % Absolute Granulocytes 6.41 (1.4-6.9) Basophils # 0.02 (0-0.4) Sodium (137-145) mmol/L Potassium (3.5-5.1) mmol/L Chloride (98-107) mmol/L Carbon Dioxide (22-30) mmol/L Anion Gap (5-15) MEQ/L BUN (7-17) mg/dL Creatinine (0.52-1.04) mg/dL Estimated GFR ML/MIN Glucose (74-106) mg/dL POC Glucometer (74 to 106) mg/dL Hemoglobin A1c (4.5-6.0) % Lactic Acid 2.1 H (0.4-2.0) Calcium (8.4-10.2) mg/dL Total Bilirubin (0.2-1.3) mg/dL AST (14-36) U/L ALT (0-35) U/L Alkaline Phosphatase (38-126) U/L Serum Total Protein (6.3-8.2) g/dL Albumin (3.5-5.0) g/dL Prealbumin (17.6-36.0) mg/dL Urine Color (YELLOW) Urine Appearance (CLEAR) Urine pH (5-6) Ur Specific Cordell (1.005-1.025) Urine Protein (Negative) Urine Ketones (NEGATIVE) Urine Blood (0-5) Josh/ul Urine Nitrite (NEGATIVE) Urine Bilirubin (NEGATIVE) Urine Urobilinogen (0-1) mg/dL Ur Leukocyte Esterase (NEGATIVE) Urine WBC (Auto) (0-5) /HPF Urine RBC (Auto) (0-2) /HPF U Epithel Cells (Auto) (FEW) /HPF Urine Bacteria (Auto) (NEGATIVE) /HPF Urine Mucus (Auto) (NEGATIVE) /HPF Urine Culture Reflexed (NO) Urine Glucose (NEGATIVE) mg/dL Monoscreen NEGATIVE (Negative) Influenza Type A Ag (NEGATIVE) Influenza Type B Ag (NEGATIVE) RSV (PCR) (Negative) SARS-CoV-2 (PCR) (NEGATIVE) Group A Strep Antibody (NEGATIVE) Slides for Path Review YES 05/08/21 05/08/2105/08/22 Range/Units 10:50 13:12 13:32 WBC (4.0-10.5) K/mm3 RBC (4.1-5.4) M/mm3 Hgb (12.0-16.0) gm/dl Hct (35-47) % MCV (78-100) fl MCH (26-32) pg MCHC (32-36) g/dl RDW (11.5-14.0) % Plt Count (150-450) K/mm3 MPV (7.5-11.0) fl Gran % (36.0-66.0) % Eos # (Auto) (0-0.5) Absolute Lymphs (auto) (1.0-4.6) Absolute Monos (auto) (0.0-1.3) Lymphocytes % (24.0-44.0) % Monocytes % (0.0-12.0) % Eosinophils % (0.00-5.0) % Basophils % (0.0-0.4) % Absolute Granulocytes (1.4-6.9) Basophils # (0-0.4) Sodium 143 (137-145) mmol/L Potassium 4.4 (3.5-5.1) mmol/L Chloride 108 H (98-107) mmol/L Carbon Dioxide 25 (22-30) mmol/L Anion Gap 14.4 (5-15) MEQ/L BUN 31 H (7-17) mg/dL Creatinine 2.03 H (0.52-1.04) mg/dL Estimated GFR 25.2 ML/MIN Glucose 162 H (74-106) mg/dL POC Glucometer (74 to 106) mg/dL Hemoglobin A1c (4.5-6.0) % Lactic Acid 1.0 (0.4-2.0) Calcium 9.3 (8.4-10.2) mg/dL Total Bilirubin 2.10 H (0.2-1.3) mg/dL AST 17 (14-36) U/L ALT 12 (0-35) U/L Alkaline Phosphatase 148 H (38-126) U/L Serum Total Protein 6.7 (6.3-8.2) g/dL Albumin 3.8 (3.5-5.0) g/dL Prealbumin (17.6-36.0) mg/dL Urine Color (YELLOW) Urine Appearance (CLEAR) Urine pH (5-6) Ur Specific Cordell (1.005-1.025) Urine Protein (Negative) Urine Ketones (NEGATIVE) Urine Blood (0-5) Josh/ul Urine Nitrite (NEGATIVE) Urine Bilirubin (NEGATIVE) Urine Urobilinogen (0-1) mg/dL Ur Leukocyte Esterase (NEGATIVE) Urine WBC (Auto) (0-5) /HPF Urine RBC (Auto) (0-2) /HPF U Epithel Cells (Auto) (FEW) /HPF Urine Bacteria (Auto) (NEGATIVE) /HPF Urine Mucus (Auto) (NEGATIVE) /HPF Urine Culture Reflexed (NO) Urine Glucose (NEGATIVE) mg/dL Monoscreen (Negative) Influenza Type A Ag NEGATIVE (NEGATIVE) Influenza Type B Ag NEGATIVE (NEGATIVE) RSV (PCR) NEGATIVE (Negative) SARS-CoV-2 (PCR) NEGATIVE (NEGATIVE) Group A Strep Antibody (NEGATIVE) Slides for Path Review 05/08/21 05/08/21 05/08/21 Range/Units 16:55 17:30 18:00 WBC (4.0-10.5) K/mm3 RBC (4.1-5.4) M/mm3 Hgb (12.0-16.0) gm/dl Hct (35-47) % MCV (78-100) fl MCH (26-32) pg MCHC (32-36) g/dl RDW (11.5-14.0) % Plt Count (150-450) K/mm3 MPV (7.5-11.0) fl Gran % (36.0-66.0) % Eos # (Auto) (0-0.5) Absolute Lymphs (auto) (1.0-4.6) Absolute Monos (auto) (0.0-1.3) Lymphocytes % (24.0-44.0) % Monocytes % (0.0-12.0) % Eosinophils % (0.00-5.0) % Basophils % (0.0-0.4) % Absolute Granulocytes (1.4-6.9) Basophils # (0-0.4) Sodium (137-145) mmol/L Potassium (3.5-5.1) mmol/L Chloride (98-107) mmol/L Carbon Dioxide (22-30) mmol/L Anion Gap (5-15) MEQ/L BUN (7-17) mg/dL Creatinine (0.52-1.04) mg/dL Estimated GFR ML/MIN Glucose (74-106) mg/dL POC Glucometer 95 (74 to 106) mg/dL Hemoglobin A1c 7.37 H (4.5-6.0) % Lactic Acid (0.4-2.0) Calcium (8.4-10.2) mg/dL Total Bilirubin (0.2-1.3) mg/dL AST (14-36) U/L ALT (0-35) U/L Alkaline Phosphatase (38-126) U/L Serum Total Protein (6.3-8.2) g/dL Albumin (3.5-5.0) g/dL Prealbumin 13.28 L (17.6-36.0) mg/dL Urine Color (YELLOW) Urine Appearance (CLEAR) Urine pH (5-6) Ur Specific Cordell (1.005-1.025) Urine Protein (Negative) Urine Ketones (NEGATIVE) Urine Blood (0-5) Josh/ul Urine Nitrite (NEGATIVE) Urine Bilirubin (NEGATIVE) Urine Urobilinogen (0-1) mg/dL Ur Leukocyte Esterase (NEGATIVE) Urine WBC (Auto) (0-5) /HPF Urine RBC (Auto) (0-2) /HPF U Epithel Cells (Auto) (FEW) /HPF Urine Bacteria (Auto) (NEGATIVE) /HPF Urine Mucus (Auto) (NEGATIVE) /HPF Urine Culture Reflexed (NO) Urine Glucose (NEGATIVE) mg/dL Monoscreen (Negative) Influenza Type A Ag (NEGATIVE) Influenza Type B Ag (NEGATIVE) RSV (PCR) (Negative) SARS-CoV-2 (PCR) (NEGATIVE) Group A Strep Antibody (NEGATIVE) Slides for Path Review 05/08/21 05/08/21 05/09/21 Range/Units 20:22 22:58 05:05 WBC 4.6 (4.0-10.5) K/mm3 RBC 3.12 L (4.1-5.4) M/mm3 Hgb 10.2 L (12.0-16.0) gm/dl Hct 31.7 L (35-47) % MCV 101.6 H (78-100) fl MCH 32.7 H (26-32) pg MCHC 32.2 (32-36) g/dl RDW 15.6 H (11.5-14.0) % Plt Count 145 L (150-450) K/mm3 MPV 11.6 H (7.5-11.0) fl Gran % 67.4 H (36.0-66.0) % Eos # (Auto) 0.21 (0-0.5) Absolute Lymphs (auto) 0.52 L (1.0-4.6) Absolute Monos (auto) 0.75 (0.0-1.3) Lymphocytes % 11.3 L (24.0-44.0) % Monocytes % 16.2 H (0.0-12.0) % Eosinophils % 4.5 (0.00-5.0) % Basophils % 0.6 (0.0-0.4) % Absolute Granulocytes 3.11 (1.4-6.9) Basophils # 0.03 (0-0.4) Sodium (137-145) mmol/L Potassium (3.5-5.1) mmol/L Chloride (98-107) mmol/L Carbon Dioxide (22-30) mmol/L Anion Gap (5-15) MEQ/L BUN (7-17) mg/dL Creatinine (0.52-1.04) mg/dL Estimated GFR ML/MIN Glucose (74-106) mg/dL POC Glucometer 103 101 (74 to 106) mg/dL Hemoglobin A1c (4.5-6.0) % Lactic Acid (0.4-2.0) Calcium (8.4-10.2) mg/dL Total Bilirubin (0.2-1.3) mg/dL AST (14-36) U/L ALT (0-35) U/L Alkaline Phosphatase (38-126) U/L Serum Total Protein (6.3-8.2) g/dL Albumin (3.5-5.0) g/dL Prealbumin (17.6-36.0) mg/dL Urine Color (YELLOW) Urine Appearance (CLEAR) Urine pH (5-6) Ur Specific Cordell (1.005-1.025) Urine Protein (Negative) Urine Ketones (NEGATIVE) Urine Blood (0-5) Josh/ul Urine Nitrite (NEGATIVE) Urine Bilirubin (NEGATIVE) Urine Urobilinogen (0-1) mg/dL Ur Leukocyte Esterase (NEGATIVE) Urine WBC (Auto) (0-5) /HPF Urine RBC (Auto) (0-2) /HPF U Epithel Cells (Auto) (FEW) /HPF Urine Bacteria (Auto) (NEGATIVE) /HPF Urine Mucus (Auto) (NEGATIVE) /HPF Urine Culture Reflexed (NO) Urine Glucose (NEGATIVE) mg/dL Monoscreen (Negative) Influenza Type A Ag (NEGATIVE) Influenza Type B Ag (NEGATIVE) RSV (PCR) (Negative) SARS-CoV-2 (PCR) (NEGATIVE) Group A Strep Antibody (NEGATIVE) Slides for Path Review 05/09/21 05/09/21 Range/Units 05:05 06:58 WBC (4.0-10.5) K/mm3 RBC (4.1-5.4) M/mm3 Hgb (12.0-16.0) gm/dl Hct (35-47) % MCV (78-100) fl MCH (26-32) pg MCHC (32-36) g/dl RDW (11.5-14.0) % Plt Count (150-450) K/mm3 MPV (7.5-11.0) fl Gran % (36.0-66.0) % Eos # (Auto) (0-0.5) Absolute Lymphs (auto) (1.0-4.6) Absolute Monos (auto) (0.0-1.3) Lymphocytes % (24.0-44.0) % Monocytes % (0.0-12.0) % Eosinophils % (0.00-5.0) % Basophils % (0.0-0.4) % Absolute Granulocytes (1.4-6.9) Basophils # (0-0.4) Sodium 140 (137-145) mmol/L Potassium 4.2 (3.5-5.1) mmol/L Chloride 110 H (98-107) mmol/L Carbon Dioxide 23 (22-30) mmol/L Anion Gap 10.8 (5-15) MEQ/L BUN 31 H (7-17) mg/dL Creatinine 1.69 H (0.52-1.04) mg/dL Estimated GFR 31.2 ML/MIN Glucose 97 (74-106) mg/dL POC Glucometer 89 (74 to 106) mg/dL Hemoglobin A1c (4.5-6.0) % Lactic Acid (0.4-2.0) Calcium 8.7 (8.4-10.2) mg/dL Total Bilirubin 2.00 H (0.2-1.3) mg/dL AST 18 (14-36) U/L ALT 7 (0-35) U/L Alkaline Phosphatase 103 (38-126) U/L Serum Total Protein 5.6 L (6.3-8.2) g/dL Albumin 3.0 L (3.5-5.0) g/dL Prealbumin (17.6-36.0) mg/dL Urine Color (YELLOW) Urine Appearance (CLEAR) Urine pH (5-6) Ur Specific Cordell (1.005-1.025) Urine Protein (Negative) Urine Ketones (NEGATIVE) Urine Blood (0-5) Josh/ul Urine Nitrite (NEGATIVE) Urine Bilirubin (NEGATIVE) Urine Urobilinogen (0-1) mg/dL Ur Leukocyte Esterase (NEGATIVE) Urine WBC (Auto) (0-5) /HPF Urine RBC (Auto) (0-2) /HPF U Epithel Cells (Auto) (FEW) /HPF Urine Bacteria (Auto) (NEGATIVE) /HPF Urine Mucus (Auto) (NEGATIVE) /HPF Urine Culture Reflexed (NO) Urine Glucose (NEGATIVE) mg/dL Monoscreen (Negative) Influenza Type A Ag (NEGATIVE) Influenza Type B Ag (NEGATIVE) RSV (PCR) (Negative) SARS-CoV-2 (PCR) (NEGATIVE) Group A Strep Antibody (NEGATIVE) Slides for Path Review Assessment/Plan (1) Urinary tract infection Current Visit: Yes Status: Acute Assessment & Plan: on levaquin, culture pending but clinically seems improved Code(s): N39.0 - URINARY TRACT INFECTION, SITE NOT SPECIFIED (2) Bilateral lower leg cellulitis Current Visit: Yes Status: Acute Assessment & Plan: on levaquin Code(s): L03.116 - CELLULITIS OF LEFT LOWER LIMB; L03.115 - CELLULITIS OF RIGHT LOWER LIMB (3) Chronic kidney disease (CKD) Current Visit: Yes Status: Acute Assessment & Plan: renal function improved with gentle hydration, bumex on hold Code(s): N18.9 - CHRONIC KIDNEY DISEASE, UNSPECIFIED (4) Diabetes type 2, uncontrolled Current Visit: No Status: Chronic Code(s): E11.65 - TYPE 2 DIABETES MELLITUS WITH HYPERGLYCEMIA
[2021-05-09 09:32] LABS: Slide Review 1 YES
[2021-05-09] MEDS: MAG-OX 400 PO SCH (09:39)
[2021-05-09] MEDS: ELIQUIS 2.5 MG TABLET PO SCH ×2 (09:39→21:52)
[2021-05-09] MEDS: Protonix 40MG Tablet PO SCH (09:39)
[2021-05-09] MEDS: Senokot-S Tablet PO SCH ×2 (09:39→21:52)
[2021-05-09] MEDS: Vitamin B-12 500 MCG PO SCH (09:39)
[2021-05-09] MEDS: Imdur 30 MG PO SCH (09:40)
[2021-05-09] MEDS: Lopressor 50 MG PO SCH ×2 (09:40→21:52)
[2021-05-09] MEDS: Apresoline 25 MG TABLET PO SCH ×3 (09:40→21:52)
[2021-05-09] MEDS: LYRICA 150MG PO SCH ×2 (09:40→21:52)
[2021-05-09] MEDS ORDERED: NON-FORMULARY ITEM (Omeprazole 20 Mg [Prilosec 20 Mg] 20 MG Capsule.Dr) PO SCH (10:00)
[2021-05-09] MEDS ORDERED: CYANOCOBALAMIN 1000 MCG PO SCH (10:00)
[2021-05-09] MEDS ORDERED: Levofloxacin 500MG/100ML D5W 500 MG/100 ML BAG IV SCH (10:00)
[2021-05-09] MEDS: Sodium Chloride 0.9% 1000 ML 1,000 ML IV SCH (16:53)
[2021-05-10 05:08] VITALS: BP 122/74; PULSE 84
[2021-05-10 05:31] LABS: Absolute Neutrophil Ct (ANC) 3.69 (1.4-6.9); Basophil (Absolute #) 0.02 (0-0.4); Eosinophil % 7.3 % (0.00-5.0); Eosinophil (Absolute #) 0.49 (0-0.5); Hematocrit 32.5 % (35-47); Hemoglobin 10.1 gm/dl (12.0-16.0); Lymphocyte (Absolute #) 1.41 (1.0-4.6); Lymphocytes % 20.9 % (24.0-44.0); Mean Cell Volume 102.5 fl (78-100); Mean Corpuscular Hemoglobin 31.9 pg (26-32); Mean Corpuscular Hgb Concent. 31.1 g/dl (32-36); Mean Platelet Volume 11.1 fl (7.5-11.0); Monocyte (Absolute #) 1.14 (0.0-1.3); Monocytes % 16.9 % (0.0-12.0); Neutrophil % 54.6 % (36.0-66.0); Platelet Count 126 K/mm3 (150-450); Red Blood Count 3.17 M/mm3 (4.1-5.4); Red Cell Distribution Width 15.5 % (11.5-14.0); White Blood Count 6.8 K/mm3 (4.0-10.5)
[2021-05-10 05:48] LABS: ANION GAP 12.8 MEQ/L (5-15); BILIRUBIN,TOTAL 1.6 mg/dL (0.2-1.3); Calcium 8.6 mg/dL (8.4-10.2); Creatinine 1 1.67 mg/dL (0.52-1.04); EST GLOMERULAR FILTRATION RATE 31.6 ML/MIN; MAGNESIUM 2.2 mg/dL (1.6-2.3); Potassium 4.1 mmol/L (3.5-5.1); Total Protein 5.8 g/dL (6.3-8.2)
[2021-05-10 07:16] VITALS: O2SAT 95
--- NOTE | 2021-05-10 08:22 | PCM.DS ---
Discharge Summary Date of Admission: 05/08/21 15:22 Admitting Physician: SULAIMAN MITCHELL Primary Care Provider: SULAIMAN MITCHELL Allergies Allergies adhesive Allergy (Verified 05/08/21 10:20) latex Allergy (Verified 05/08/21 10:20) Penicillins Allergy (Verified 05/08/21 10:20) meperidine HCl [From Demerol] Adverse Reaction (Verified 05/08/21 10:20) nifedipine [From Procardia] Adverse Reaction (Verified 05/08/21 10:20) Hospital Summary - Hospital Course Hospital Course: patient was admitted with altered mental status, found to have UTI and acute on chronic kidney failure. held diuretics and hydrated and started on levaquin emperically, grew proteus from urine culture with intermed sensitivity. she is tolerating po intake and appears to be back at her baseline, return to [facility] on keflex today (has PCN allergy but has tolerated cephalexin in the past). - Vitals & Intake/Output Vital Signs: Vital Signs Temperature 98.2 F 05/10/21 05:07 Pulse Rate 84 05/10/21 05:07 Respiratory Rate 20 05/10/21 05:07 Blood Pressure 122/74 05/10/21 05:07 O2 Sat by Pulse Oximetry 95 05/10/21 07:15 Intake & Output: Intake & Output 05/07/21 05/08/21 05/09/21 05/10/21 11:59 11:59 11:59 11:59 Intake Total 1354 1839 Output Total 100 600 975 Balance -100 754 864 Weight 136.713 kg 132.5 kg - Lab Result Diagrams: 05/10/21 04:39 05/10/21 04:39 Lab Results-Last 24 Hrs: Lab Results-Last 24 Hours 05/09/21 05/09/21 05/09/21 Range/Units 05:05 11:09 16:27 WBC (4.0-10.5) K/mm3 RBC (4.1-5.4) M/mm3 Hgb (12.0-16.0) gm/dl Hct (35-47) % MCV (78-100) fl MCH (26-32) pg MCHC (32-36) g/dl RDW (11.5-14.0) % Plt Count (150-450) K/mm3 MPV (7.5-11.0) fl Gran % (36.0-66.0) % Eos # (Auto) (0-0.5) Absolute Lymphs (auto) (1.0-4.6) Absolute Monos (auto) (0.0-1.3) Lymphocytes % (24.0-44.0) % Monocytes % (0.0-12.0) % Eosinophils % (0.00-5.0) % Basophils % (0.0-0.4) % Absolute Granulocytes (1.4-6.9) Basophils # (0-0.4) Sodium (137-145) mmol/L Potassium (3.5-5.1) mmol/L Chloride (98-107) mmol/L Carbon Dioxide (22-30) mmol/L Anion Gap (5-15) MEQ/L BUN (7-17) mg/dL Creatinine (0.52-1.04) mg/dL Estimated GFR ML/MIN Glucose (74-106) mg/dL POC Glucometer 168 H 208 H (74 to 106) mg/dL Calcium (8.4-10.2) mg/dL Magnesium (1.6-2.3) mg/dL Total Bilirubin (0.2-1.3) mg/dL AST (14-36) U/L ALT (0-35) U/L Alkaline Phosphatase (38-126) U/L Serum Total Protein (6.3-8.2) g/dL Albumin (3.5-5.0) g/dL Slides for Path Review YES 05/09/21 05/10/21 05/10/21 Range/Units 22:30 04:39 04:39 WBC 6.8 (4.0-10.5) K/mm3 RBC 3.17 L (4.1-5.4) M/mm3 Hgb 10.1 L (12.0-16.0) gm/dl Hct 32.5 L (35-47) % MCV 102.5 H (78-100) fl MCH 31.9 (26-32) pg MCHC 31.1 L (32-36) g/dl RDW 15.5 H (11.5-14.0) % Plt Count 126 L (150-450) K/mm3 MPV 11.1 H (7.5-11.0) fl Gran % 54.6 (36.0-66.0) % Eos # (Auto) 0.49 (0-0.5) Absolute Lymphs (auto) 1.41 (1.0-4.6) Absolute Monos (auto) 1.14 (0.0-1.3) Lymphocytes % 20.9 L (24.0-44.0) % Monocytes % 16.9 H (0.0-12.0) % Eosinophils % 7.3 H (0.00-5.0) % Basophils % 0.3 (0.0-0.4) % Absolute Granulocytes 3.69 (1.4-6.9) Basophils # 0.02 (0-0.4) Sodium 142 (137-145) mmol/L Potassium 4.1 (3.5-5.1) mmol/L Chloride 110 H (98-107) mmol/L Carbon Dioxide 23 (22-30) mmol/L Anion Gap 12.8 (5-15) MEQ/L BUN 31 H (7-17) mg/dL Creatinine 1.67 H (0.52-1.04) mg/dL Estimated GFR 31.6 ML/MIN Glucose 189 H (74-106) mg/dL POC Glucometer 231 H (74 to 106) mg/dL Calcium 8.6 (8.4-10.2) mg/dL Magnesium 2.2 (1.6-2.3) mg/dL Total Bilirubin 1.60 H (0.2-1.3) mg/dL AST 16 (14-36) U/L ALT 8 (0-35) U/L Alkaline Phosphatase 112 (38-126) U/L Serum Total Protein 5.8 L (6.3-8.2) g/dL Albumin 3.0 L (3.5-5.0) g/dL Slides for Path Review 05/10/21 Range/Units 07:46 WBC (4.0-10.5) K/mm3 RBC (4.1-5.4) M/mm3 Hgb (12.0-16.0) gm/dl Hct (35-47) % MCV (78-100) fl MCH (26-32) pg MCHC (32-36) g/dl RDW (11.5-14.0) % Plt Count (150-450) K/mm3 MPV (7.5-11.0) fl Gran % (36.0-66.0) % Eos # (Auto) (0-0.5) Absolute Lymphs (auto) (1.0-4.6) Absolute Monos (auto) (0.0-1.3) Lymphocytes % (24.0-44.0) % Monocytes % (0.0-12.0) % Eosinophils % (0.00-5.0) % Basophils % (0.0-0.4) % Absolute Granulocytes (1.4-6.9) Basophils # (0-0.4) Sodium (137-145) mmol/L Potassium (3.5-5.1) mmol/L Chloride (98-107) mmol/L Carbon Dioxide (22-30) mmol/L Anion Gap (5-15) MEQ/L BUN (7-17) mg/dL Creatinine (0.52-1.04) mg/dL Estimated GFR ML/MIN Glucose (74-106) mg/dL POC Glucometer 153 H (74 to 106) mg/dL Calcium (8.4-10.2) mg/dL Magnesium (1.6-2.3) mg/dL Total Bilirubin (0.2-1.3) mg/dL AST (14-36) U/L ALT (0-35) U/L Alkaline Phosphatase (38-126) U/L Serum Total Protein (6.3-8.2) g/dL Albumin (3.5-5.0) g/dL Slides for Path Review Micro Results-Entire Visit: Microbiology 05/08/21 10:58 Blood Culture - Preliminary Blood NO GROWTH TO DATE 05/08/21 10:50 Blood Culture - Preliminary Blood NO GROWTH TO DATE 05/08/21 10:47 Urine Culture - Final Catherized Escherichia Coli 05/08/21 10:10 Wound Culture - Final Leg - Left Lower Proteus Mirabilis Accuchecks Date 05/09/21 Date 05/09/21 Time 16:52 Time 11:18 - Procedures and Test Procedures and Tests throughout Hospitalization: Therapy Orders & Screens 05/08/21 16:55 OT Screen per Nursing Assess ONCE Comment: Protocol Order Physician Instructions: Greater than 3 points order OT Admission Screening Reason For Exam: Triggered on Admission Diagnosis: urosepsis Open Wound/Cellutlitis/Pressure Ulcers: Yes Acute Fx/ORIF/Change in wt bearing status: No Severe MUSCULOSKELETAL pain: No ADL Dysfunction: Yes Acute CVA w/Hemiparesis/Hemiplegia: No Decreased Functional Mobility/Strength: Yes Sprain/Strain: No Acute Post-op Mobility Dysfunction: No Total Points: 9 PT Screen per Nursing Assess ONCE Comment: Protocol Order Physician Instructions: Greater than 3 points order PT Admission Screenin Reason For Exam: Triggered on Admission Diagnosis: urosepsis Open Wound/Cellutlitis/Pressure Ulcers: Yes Acute Fx/ORIF/Change in wt bearing status: No Severe MUSCULOSKELETAL pain: No ADL Dysfunction: Yes Acute CVA w/Hemiparesis/Hemiplegia: No Decreased Functional Mobility/Strength: Yes Sprain/Strain: No Acute Post-op Mobility Dysfunction: No Total Points: 9 ST Screen per Nursing Assess ONCE Comment: Protocol Order Physician Instructions: Greater than [address] Admission Screening Reason For Exam: Triggered on Admission Diagnosis: urosepsis CVA/Dyshpagia/Aphasia: No Cognitive Deficits: No Dehydration/Nutrition Deficit: Yes Reflux: No Oral-Motor Difficulties: Yes Pneumonia: No Jail Resident: Yes Total Points: 13 05/08/21 19:18 BiPap/CPAP ROUTINE Comment: Diagnosis: urosepsis Oxygen NASAL CANNULA 2 lpm Comment: Diagnosis: urosepsis Discharge Exam General Appearance: obese Neurologic Exam: alert, cooperative Respiratory Exam: normal breath sounds, lungs clear, No respiratory distress Cardiovascular Exam: regular rate/rhythm, normal heart sounds Gastrointestinal/Abdomen Exam: soft, No tenderness, No mass Extremity Exam: normal inspection, normal range of motion Skin Exam: normal color, warm, dry Wound Assessment: Skin/Wound Assessment Wound/Incision Assessment Start: 05/08/21 16:55 Text: Status: Active Freq: Q6H Protocol: Document 05/10/21 08:00 (Rec: 05/10/21 08:11 [id number]) Wound/Incision Assessment Left Lower Calf Wound Assessment Shift Assessment Wound Type Abrasion Wound Stage Non Pressure Wound Dressing Status Dry & Intact Drainage Amount None Surrounding Tissue Bright Red Final Diagnosis/Problem List - Final Discharge Diagnosis/Problem (1) Urinary tract infection Current Visit: Yes Status: Acute Assessment & Plan: back to [facility] on keflex Code(s): N39.0 - URINARY TRACT INFECTION, SITE NOT SPECIFIED (2) Bilateral lower leg cellulitis Current Visit: Yes Status: Acute Assessment & Plan: chronic condition, covering with keflex Code(s): L03.116 - CELLULITIS OF LEFT LOWER LIMB; L03.115 - CELLULITIS OF RIGHT LOWER LIMB (3) Chronic kidney disease (CKD) Current Visit: Yes Status: Acute Code(s): N18.9 - CHRONIC KIDNEY DISEASE, UNSPECIFIED (4) Diabetes type 2, uncontrolled Current Visit: No Status: Chronic Code(s): E11.65 - TYPE 2 DIABETES MELLITUS WITH HYPERGLYCEMIA - Discharge Disposition: [facility] Condition: Stable Prescriptions: New Cephalexin Mh 500 mg [Keflex 500 mg] 500 mg PO QID #28 Continue Pregabalin [Lyrica 150Mg] 150 mg PO BID Omeprazole 20 MG [Prilosec 20 mg] 20 mg PO DAILY Magnesium Oxide 400 mg [Mag-Ox 400] 400 mg PO DAILY Atorvastatin Calcium [Lipitor 40Mg] 40 mg PO DAILY Apixaban [Eliquis 5 mg Tablet] 5 mg PO BID Acetaminophen 325 mg [Tylenol 325 mg] 650 mg PO Q4H PRN PRN PRN Reason: Mild Pain Metoprolol Tartrate 50 mg [Lopressor 50 MG] 50 mg PO BID Allopurinol 100 mg [Zyloprim 100 mg] 1 ea PO DAILY Cranberry Fruit Concentrate [Azo Cranberry] 1 ea PO DAILY Bumetanide 1 mg PO DAILY Bisacodyl 5 mg [Dulcolax 5 mg] 10 mg PO DAILY PRN PRN Reason: Constipation Bisacodyl 10 mg [Dulcolax 10 MG SUPP] 1 ea RC DAILY PRN PRN Reason: Constipation Darbepoetin Jose 60 Mcg [Aranesp 60 Mcg Syringe] 0.3 ml SQ UD Hydralazine HCl 10 mg PO TID Insulin Lispro [Humalog] 1 unit SQ TID Insulin Detemir [Levemir] 20 units SQ DAILY Polyethylene Glycol 3350 [Miralax] 1 ea PO DAILY PRN PRN Reason: Constipation Sennosides/Docusate Sodium [Senna-S Tablet] 1 each PO BID Ergocalciferol (Vitamin D2) [Vitamin D2] 50 mcg PO DAILY Cyanocobalamin (Vitamin B-12) [Vitamin B-12] 1,000 mcg PO DAILY Glucagon [Gvoke Hypopen 1-Pack] 0.5 mg SQ Q24H PRN PRN Reason: Hypoglycemia Lanolin Alcohol/Mo/W.pet/[place] [Eucerin Cream] 454 gm TP DAILY Potassium Chloride [Klor-Con 10] 10 meq PO BID Magnesium Hydroxide 30 ml [Milk of Magnesia 30 ml] 30 ml PO Q6HPRN PRN PRN Reason: Constipation Isosorbide Dinitrate 10 mg PO TID Insulin Lispro 7 unit SQ AC Amino Acids/Protein Hydrolys [Pro-Stat Awc Liquid] 30 ml PO BID
[2021-05-10] MEDS: Lopressor 50 MG PO SCH (09:04)
[2021-05-10] MEDS: Apresoline 25 MG TABLET PO SCH (09:04)
[2021-05-10] MEDS: Vitamin B-12 500 MCG PO SCH (09:04)
[2021-05-10] MEDS: Protonix 40MG Tablet PO SCH (09:05)
[2021-05-10] MEDS: MAG-OX 400 PO SCH (09:05)
[2021-05-10] MEDS: Senokot-S Tablet PO SCH (09:05)
[2021-05-10] MEDS: Imdur 30 MG PO SCH (09:06)
[2021-05-10] MEDS: LYRICA 150MG PO SCH (09:06)
[2021-05-10] MEDS: ELIQUIS 2.5 MG TABLET PO SCH (09:06)
[2021-05-10] MEDS ORDERED: KEFLEX 500 MG PO SCH (10:00)
[2021-05-10] MEDS ORDERED: LEVOFLOXACIN 750MG/150ML D5W 750 MG/150 ML BAG IV SCH (10:00)
== END 2021-05-10 10:52 | DRG 690 ==
LOC: ED 10:09 → MED SURG 15:22
PROVIDERS: ADMIT Family Medicine; ATTEND Family Medicine
DX: N39.0 Urinary tract infection, site not specified (principal); L03.116 Cellulitis of left lower limb; L03.115 Cellulitis of right lower limb; N18.9 Chronic kidney disease, unspecified; E11.65 Type 2 diabetes mellitus with hyperglycemia; I12.9 Hypertensive chronic kidney disease with stage 1 through stage 4 chronic kidney disease, or unspecified chronic kidney disease; I10 Essential (primary) hypertension; S80.812D Abrasion, left lower leg, subsequent encounter; K21.9 Gastro-esophageal reflux disease without esophagitis; I25.2 Old myocardial infarction; Z79.01 Long term (current) use of anticoagulants; Z79.899 Other long term (current) drug therapy; Z20.828 Contact with and (suspected) exposure to other viral communicable diseases
CPT/HCPCS: 0241U; 36000; 36415; 51702; 80053; 81001; 82947; 83036; 83605; 83735; 84134; 85025; 86308; 87040; 87070; 87077; 87086; 87186; 87400; 87651; 93041; 94660; 94760; 96365; 96374; 99285; J1956; A9270-GY

== ENCOUNTER 2021-05-12 21:06 | Emergency (ER) | payer MEDICARE, OTHER ==
--- NOTE | 2021-05-12 21:19 | ERPHSYRPT ---
- History of Present Illness Time Seen by Provider: 05/12/21 21:08 Source: patient, EMS Exam Limitations: no limitations Physician History: The patient is a 76-year-old female with a past medical significant for CHF, aortic stenosis, obstructive sleep apnea, atrial fibrillation, bilateral lower extremity lymphedema who presents with a chief complaint of dyspnea. Of note, the patient reportedly was just released from the hospital today after she was admitted for an observation stay for altered mental status which was thought to be secondary to UTI. She was discharged with a prescription for Keflex. The patient reportedly resides in an [facility] and she had an x-ray done today which showed possible changes of "CHF" meaning pulmonary edema. Her requested her to be transported to [facility] where her automatic engraver is located however a BLS crew responded to the ECF and transported her to this facility for further evaluation and management. They had the patient on CPAP prior to arrival. I managed to take the patient off of CPAP to nasal cannula as soon as she arrived given that she appeared to be in no obvious distress. She eventually was weaned off of oxygen and had no obvious respiratory distress. She states she is short of breath but this is her baseline and had no complaints of pain, specifically chest pain, nausea, vomiting, fever or chills. She did endorse having reported weight gain. Allergies/Adverse Reactions: adhesive Allergy (Verified 05/08/21 10:20) latex Allergy (Verified 05/08/21 10:20) Penicillins Allergy (Verified 05/08/21 10:20) meperidine HCl [From Demerol] Adverse Reaction (Verified 05/08/21 10:20) nifedipine [From Procardia] Adverse Reaction (Verified 05/08/21 10:20) Home Medications: Acetaminophen 325 mg [Tylenol 325 mg] 650 mg PO Q4H PRN PRN 07/25/17 [History] Apixaban [Eliquis 5 mg Tablet] 5 mg PO BID 07/25/17 [History] Atorvastatin Calcium [Lipitor 40Mg] 40 mg PO DAILY 07/25/17 [History] Magnesium Oxide 400 mg [Mag-Ox 400] 400 mg PO DAILY 07/25/17 [History] Omeprazole 20 MG [Prilosec 20 mg] 20 mg PO DAILY 07/25/17 [History] Pregabalin [Lyrica 150Mg] 150 mg PO BID 07/25/17 [History] Metoprolol Tartrate 50 mg [Lopressor 50 MG] 50 mg PO BID 02/20/20 [History] Allopurinol 100 mg [Zyloprim 100 mg] 1 ea PO DAILY 05/08/21 [History] Amino Acids/Protein Hydrolys [Pro-Stat Awc Liquid] 30 ml PO BID 05/08/21 [History] Bisacodyl 10 mg [Dulcolax 10 MG SUPP] 1 ea RC DAILY PRN 05/08/21 [History] Bisacodyl 5 mg [Dulcolax 5 mg] 10 mg PO DAILY PRN 05/08/21 [History] Bumetanide 1 mg PO DAILY 05/08/21 [History] Cranberry Fruit Concentrate [Azo Cranberry] 1 ea PO DAILY 05/08/21 [History] Cyanocobalamin (Vitamin B-12) [Vitamin B-12] 1,000 mcg PO DAILY 05/08/21 [History] Darbepoetin Jose 60 Mcg [Aranesp 60 Mcg Syringe] 0.3 ml SQ UD 05/08/21 [History] Ergocalciferol (Vitamin D2) [Vitamin D2] 50 mcg PO DAILY 05/08/21 [History] Glucagon [Gvoke Hypopen 1-Pack] 0.5 mg SQ Q24H PRN 05/08/21 [History] Hydralazine HCl 10 mg PO TID 05/08/21 [History] Insulin Detemir [Levemir] 20 units SQ DAILY 05/08/21 [History] Insulin Lispro 7 unit SQ AC 05/08/21 [History] Insulin Lispro [Humalog] 1 unit SQ TID 05/08/21 [History] Isosorbide Dinitrate 10 mg PO TID 05/08/21 [History] Lanolin Alcohol/Mo/W.pet/[place] [Eucerin Cream] 454 gm TP DAILY 05/08/21 [History] Magnesium Hydroxide 30 ml [Milk of Magnesia 30 ml] 30 ml PO Q6HPRN PRN 05/08/21 [History] Polyethylene Glycol 3350 [Miralax] 1 ea PO DAILY PRN 05/08/21 [History] Potassium Chloride [Klor-Con 10] 10 meq PO BID 05/08/21 [History] Sennosides/Docusate Sodium [Senna-S Tablet] 1 each PO BID 05/08/21 [History] Hx Tetanus, Diphtheria Vaccination/Date Given: Yes Hx Influenza Vaccination/Date Given: Yes Hx Pneumococcal Vaccination/Date Given: Yes Travel Risk - Vaccine Status Have you recieved a Covid-19 vaccination: Yes Judge: Unknown - Vaccination Dates Date of 2cond Vaccination (if applicable): 2020 Dates if Unknown: ? Comment: reported to have booster yesterday - Review of Systems Constitutional: Other (Weight gain), No Fever, No Chills Eyes: No Symptoms Ears, Nose, & Throat: No Symptoms Respiratory: Dyspnea, No Cough, No Stridor, No Wheezing Cardiac: Edema, No Chest Pain Abdominal/Gastrointestinal: No Abdominal Pain, No Nausea, No Vomiting Genitourinary Symptoms: No Dysuria, No Frequency Musculoskeletal: No Symptoms All Other Systems: Reviewed and Negative - Past Medical History Pertinent Past Medical History: Yes Neurological History: No Pertinent History ENT History: Cataracts Cardiac History: Hypertension, Myocardial Infarction (NM) Respiratory History: Sleep Apnea Endocrine Medical History: Diabetes Type II Musculoskeletal History: Arthritis GI Medical History: Gallbladder Disease History: No Pertinent History Psycho-Social History: No Pertinent History Female Reproductive Disorders: No Pertinent History Other Medical History: CPAP, double by pass, [address] in left ventrical, - Past Surgical History Past Surgical History: Yes Neuro Surgical History: No Pertinent History Cardiac: CABG, Cardiac Catheterization, Cardiac Stent Respiratory: No Pertinent History Gastrointestinal: Appendectomy, Cholecystectomy Genitourinary: No Pertinent History Musculoskeletal: Joint Replacement Female Surgical History: Hysterectomy Other Surgical History: KNEE REPLACEMENT, right shoulder replacement - Social History Smoking Status: Never smoker Exposure to second hand smoke: No Drug Use: none Patient Lives Alone: No - Nursing Vital Signs Nursing Vital Signs: Initial Vital Signs Temperature 97.9 F 05/12/21 21:09 Pulse Rate 76 05/12/21 21:09 Respiratory Rate 28 H 05/12/21 21:09 Blood Pressure 131/58 05/12/21 21:09 O2 Sat by Pulse Oximetry 99 05/12/21 21:09 Pain Scale Pain Intensity 0 - Physical Exam General Appearance: no apparent distress, obese Eye Exam: PERRL/EOMI Ears, Nose, Throat Exam: pharynx normal, moist mucous membranes Neck Exam: non-tender Respiratory Exam: other (Lungs were diminished bilaterally although was very difficult to hear given the patient's body habitus.), No chest tenderness Cardiovascular Exam: normal peripheral pulses, murmur (Grade 2 out of 6 to 3 out of 6 systolic murmur.), capillary refill <2 sec, other (Irregular rhythm although normal rate with A. fib noted on telemetry) Gastrointestinal/Abdomen Exam: soft Extremity Exam: pedal edema, other (Bilateral lower extremity edema, pitting edema with erythema consistent with chronic lymphedema that extended to both mid shins. The patient had booties on her feet bilaterally) Neurologic Exam: alert, oriented x 3, cooperative Skin Exam: pale O2 Delivery: Room Air - Course Nursing assessment & vital signs reviewed: Yes EKG Interpreted by Me: RATE, A-fib, Other (RBBB, no evidence of STEMI, PVC, evidence of old inferior infarct) - Radiology Exams Chest X-ray Interpretation: Interpreted by me, Reviewed by me (Cardiomegaly with evidence of bilateral interstitial edema that appears unchanged from chest x-ray obtained on April 14, 2021. Currently awaiting formal radiology review.) Ordered Tests: Active Orders 24 hr Category Date Time Status Nursing Home Physician STAT Care 05/12/21 21:18 Completed EKG-ER Only STAT Care 05/12/21 21:17 Completed IV Insertion STAT Care 05/12/21 21:17 Completed CHEST 1 VIEW (PORTABLE) Stat Exams 05/12/21 21:18 Taken BMP Stat Lab 05/12/21 21:42 Completed CBC W DIFF Stat Lab 05/12/21 21:42 Completed Hepatic Function Panel Stat Lab 05/12/21 21:42 Completed NT PRO BNP Stat Lab 05/12/21 21:42 Completed TROPONIN Q3H Lab 05/12/21 21:42 Completed TSH [TSH, 3RD Generation] Stat Lab 05/12/21 21:42 Completed VBG [VENOUS BLOOD GAS] Stat Lab 05/12/21 21:27 Completed Medication Summary Discontinued Medications Generic Name Dose Route Start Last Admin Trade Name Freq PRN Reason Stop Dose Admin Meropenem 1 g/ Sodium Chloride 100 mls @ 200 mls/hr 05/12/21 22:22 05/12/21 22:28 IV 05/12/21 22:51 200 mls/hr STAT ONE Administration Sodium Chloride Confirm 05/12/21 22:27 Sodium Chloride 100ml Mini-Bag Plus Administered 05/12/21 22:28 Dose 100 mls @ ud IV .STK-MED ONE Meropenem Confirm 05/12/21 22:27 Meropenem 1 Gm Vial Administered 05/12/21 22:28 Dose 1 g IV .STK-MED ONE Lab/Rad Data: Laboratory Result Diagrams 05/12/21 21:42 05/12/21 21:42 Laboratory Results 05/12/21 05/12/21 05/12/21 Range/Units 21:42 21:42 21:42 WBC (4.0-10.5) K/mm3 RBC (4.1-5.4) M/mm3 Hgb (12.0-16.0) gm/dl Hct (35-47) % MCV (78-100) fl MCH (26-32) pg MCHC (32-36) g/dl RDW (11.5-14.0) % Plt Count (150-450) K/mm3 MPV (7.5-11.0) fl Gran % (36.0-66.0) % Eos # (Auto) (0-0.5) Absolute Lymphs (auto) (1.0-4.6) Absolute Monos (auto) (0.0-1.3) Lymphocytes % (24.0-44.0) % Monocytes % (0.0-12.0) % Eosinophils % (0.00-5.0) % Basophils % (0.0-0.4) % Absolute Granulocytes (1.4-6.9) Basophils # (0-0.4) pO2/FiO2 Ratio % VBG pH (7.32-7.42) VBG pCO2 at Pat Temp (42-55) mm/Hg VBG pO2 at Pat Temp (25-40) mm/Hg VBG HCO3 (22-28) meq/L VBG O2 Sat (Andrea) (95-100) VBG Base Excess (-2.0-2.0) VBG Hemoglobin VBG Carboxyhemoglobin (0.0-6.9) % T HGB POC Potassium (3.5-5.1) Sodium 144 (137-145) mmol/L Potassium 4.2 (3.5-5.1) mmol/L Chloride 110 H (98-107) mmol/L Carbon Dioxide 25 (22-30) mmol/L Anion Gap 12.6 (5-15) MEQ/L BUN 30 H (7-17) mg/dL Creatinine 1.76 H (0.52-1.04) mg/dL Estimated GFR 29.8 ML/MIN Glucose 178 H (74-106) mg/dL Calcium 9.2 (8.4-10.2) mg/dL Total Bilirubin 1.40 H (0.2-1.3) mg/dL Direct Bilirubin 0.4 (0.0-0.4) mg/dL AST 17 (14-36) U/L ALT 10 (0-35) U/L Alkaline Phosphatase 149 H (38-126) U/L Troponin I 0.016 (0.000-0.034) ng/mL NT-Pro-B Natriuret Pep 4660 H (0-1800) pg/mL Serum Total Protein 6.0 L (6.3-8.2) g/dL Albumin 3.2 L (3.5-5.0) g/dL TSH 3rd Generation 4.020 (0.47-4.68) mIU/L 05/12/21 05/12/21 Range/Units 21:42 21:27 WBC 6.1 (4.0-10.5) K/mm3 RBC 3.38 L (4.1-5.4) M/mm3 Hgb 10.8 L (12.0-16.0) gm/dl Hct 34.3 L (35-47) % MCV 101.5 H (78-100) fl MCH 32.0 (26-32) pg MCHC 31.5 L (32-36) g/dl RDW 15.4 H (11.5-14.0) % Plt Count 150 (150-450) K/mm3 MPV 10.5 (7.5-11.0) fl Gran % 44.5 (36.0-66.0) % Eos # (Auto) 0.44 (0-0.5) Absolute Lymphs (auto) 1.88 (1.0-4.6) Absolute Monos (auto) 1.00 (0.0-1.3) Lymphocytes % 31.0 (24.0-44.0) % Monocytes % 16.5 H (0.0-12.0) % Eosinophils % 7.2 H (0.00-5.0) % Basophils % 0.8 (0.0-0.4) % Absolute Granulocytes 2.70 (1.4-6.9) Basophils # 0.05 (0-0.4) pO2/FiO2 Ratio 44.0 % VBG pH 7.36 (7.32-7.42) VBG pCO2 at Pat Temp 53 (42-55) mm/Hg VBG pO2 at Pat Temp 44 H (25-40) mm/Hg VBG HCO3 29.9 H* (22-28) meq/L VBG O2 Sat (Andrea) 75.1 L (95-100) VBG Base Excess 3.2 H (-2.0-2.0) VBG Hemoglobin 10.7 VBG Carboxyhemoglobin 3.7 (0.0-6.9) % T HGB POC Potassium 4.2 (3.5-5.1) Sodium (137-145) mmol/L Potassium (3.5-5.1) mmol/L Chloride (98-107) mmol/L Carbon Dioxide (22-30) mmol/L Anion Gap (5-15) MEQ/L BUN (7-17) mg/dL Creatinine (0.52-1.04) mg/dL Estimated GFR ML/MIN Glucose (74-106) mg/dL Calcium (8.4-10.2) mg/dL Total Bilirubin (0.2-1.3) mg/dL Direct Bilirubin (0.0-0.4) mg/dL AST (14-36) U/L ALT (0-35) U/L Alkaline Phosphatase (38-126) U/L Troponin I (0.000-0.034) ng/mL NT-Pro-B Natriuret Pep (0-1800) pg/mL Serum Total Protein (6.3-8.2) g/dL Albumin (3.5-5.0) g/dL TSH 3rd Generation (0.47-4.68) mIU/L - Progress Progress: unchanged, improved Progress Note: 05/12/21 22:15 The patient was reassessed to find that she was sleeping and in no obvious distress. She has no hypoxia and is currently on room air. 05/12/21 22:22 I reviewed the patient's EMR and it appears she grew E. coli from her urine on May 08, 2021. It. This is ESBL E. coli. I will give her a dose of meropenem and will discharge the patient with orders for the ECF to administer meropenem as an outpatient and DC the Keflex since it is resistant to cefazolin. 05/12/21 22:24 The patient presents with a complaint of a CHF exacerbation however on my exam I took her off CPAP right away and titrated her oxygen completely off and she was in no obvious respiratory distress. Come to find out, she had an outpatient chest x-ray that showed some probable mild interstitial edema which I suspect is likely her baseline and this prompted her transfer to the emergency department for further evaluation. She had an extensive work-up during her last hospital stay which revealed that she had a UTI with a urine culture growing ESBL E. coli. Her remaining labs appear to be her baseline. She had no complaints of chest pain and it appears she is already taking Bumex for diuresis. I reviewed her sensitivity report from her urine culture and it appears there is resistant to Keflex. This was discontinued and I have started meropenem. I have also written outpatient order for the ECF to administer meropenem for the next 7 days. We have attempted to call the intermediate facility to arrange to have this completed however nobody would answer the phone. I wrote in the patient's discharge instructions that if they are unable to do this, just to have her brought back to the emergency department and we would consider admitting the patient to arrange antibiotic infusions to be given. Her was contacted and updated with the work-up results and plan for discharge. He agrees and is comfortable with this plan according to the patient's nurse. - Departure Departure Disposition: Extended Care Facility Clinical Impression: Infection due to ESBL-producing Escherichia coli, Hx of chronic congestive heart failure, Hx of aortic valve stenosis, Hx of chronic kidney disease, Macrocytic anemia Condition: Stable Critical Care Time: No Referrals: SULAIMAN MITCHELL MD [Primary Care Provider] - Follow up/PCP as directed Instructions: Urinary Tract Infections in Adults, Heart Failure, Adult Additional Instructions: Please administer 1 g of meropenem daily for the next 7 days. If you are unable to arrange his medication to be administered, please contact the patient's primary care provider and/or have the patient return to the emergency d epartment.
[2021-05-12 21:33] LABS: VBG BASE EXCESS 3.2 (-2.0-2.0); VBG CARBOXYHEMOGLOBIN 3.7 % T HGB (0.0-6.9); VBG HCO3- 29.9 meq/L (22-28); VBG HEMOGLOBIN 10.7; VBG O2 SATURATION 75.1 (95-100); VBG POTASSIUM 4.2 (3.5-5.1); VBG pH 7.36 (7.32-7.42)
[2021-05-12 21:45] LABS: Basophil (Absolute #) 0.05 (0-0.4); Eosinophil % 7.2 % (0.00-5.0); Eosinophil (Absolute #) 0.44 (0-0.5); Hematocrit 34.3 % (35-47); Hemoglobin 10.8 gm/dl (12.0-16.0); Lymphocyte (Absolute #) 1.88 (1.0-4.6); Mean Cell Volume 101.5 fl (78-100); Mean Corpuscular Hgb Concent. 31.5 g/dl (32-36); Mean Platelet Volume 10.5 fl (7.5-11.0); Monocytes % 16.5 % (0.0-12.0); Neutrophil % 44.5 % (36.0-66.0); Platelet Count 150 K/mm3 (150-450); Red Blood Count 3.38 M/mm3 (4.1-5.4); Red Cell Distribution Width 15.4 % (11.5-14.0); White Blood Count 6.1 K/mm3 (4.0-10.5)
[2021-05-12] MEDS ORDERED: Merrem 1 GM 1 G in Sodium Chloride 100ML MINI-BAG PLUS 100 ML IV ONE (22:22)
[2021-05-12] MEDS ORDERED: Sodium Chloride 100ML MINI-BAG PLUS 100 ML IV ONE (22:27)
[2021-05-12] MEDS ORDERED: Merrem 1 GM IV ONE (22:27)
[2021-05-12 22:44] LABS: ALBUMIN 3.2 g/dL (3.5-5.0); ANION GAP 12.6 MEQ/L (5-15); BILIRUBIN,TOTAL 1.4 mg/dL (0.2-1.3); Calcium 9.2 mg/dL (8.4-10.2); Creatinine 1 1.76 mg/dL (0.52-1.04); Direct Bilirubin 0.4 mg/dL (0.0-0.4); EST GLOMERULAR FILTRATION RATE 29.8 ML/MIN; Potassium 4.2 mmol/L (3.5-5.1)
[2021-05-12 23:23] VITALS: BP 140/76; PULSE 68; O2SAT 98
--- NOTE | 2021-05-13 08:44 | XRAY ---
Indication: Dyspnea. CHF. Comparison: March 18, 2020. Portable chest grossly unchanged again demonstrating cardiomegaly and mild bibasilar infiltrates/atelectasis/effusions concerning for cardiac decompensation/CHF. Superimposed pneumonia not completely excluded. Again incidental CABG and right shoulder arthroplasty.
== END 2021-05-12 23:59 | disposition home or self-care (01) ==
LOC: ED 21:06
DX: N39.0 Urinary tract infection, site not specified (principal); B96.29 Other Escherichia coli [E. coli] as the cause of diseases classified elsewhere; I50.9 Heart failure, unspecified; I35.0 Nonrheumatic aortic (valve) stenosis; E11.22 Type 2 diabetes mellitus with diabetic chronic kidney disease; I13.0 Hypertensive heart and chronic kidney disease with heart failure and stage 1 through stage 4 chronic kidney disease, or unspecified chronic kidney disease; N18.9 Chronic kidney disease, unspecified; Z79.4 Long term (current) use of insulin; Z79.899 Other long term (current) drug therapy; D53.9 Nutritional anemia, unspecified
CPT/HCPCS: 36000; 36415; 71045; 80048; 80076; 82805; 83880; 84443; 84484; 85025; 93005; 93041; 96374; 99284

== ENCOUNTER 2021-07-05 13:43 | Emergency (ER) | payer MEDICARE, OTHER ==
[2021-07-05 13:50] LABS: A-aADO2 40; ABG HEMOGLOBIN 9.6; ABG POTASSIUM 3.9 (3.5-5.1); ABG SITE LEFT RADIAL; ALLEN TEST OK? YES; ARTERIAL BLD GAS O2 SATURATION 99.2 % (95-100); ARTERIAL BLOOD GAS BASE EXCESS 8.8 (-2.0-2.0); ARTERIAL BLOOD GAS FIO2 28 %; ARTERIAL BLOOD GAS PCO2 51 mmHg (35-45); ARTERIAL BLOOD GAS PO2 96 mmHg (75-100); ARTERIAL BLOOD GAS pH 7.44 (7.35-7.45); CARBOXYHEMOGLOBIN 1.5 % THgb (0.0-6.9); HCO3- 34.6 (22-28); HGB O2 SAT 96.6 g/dF (94-100); Methhemoglobin 1.1 % (1.4-1.5)
[2021-07-05 14:23] LABS: Bacteria MODERATE /HPF (NEGATIVE); Epithelial Cells RARE /HPF (FEW); Mucus SLIGHT /HPF (NEGATIVE); WBC >100 /HPF (0-5)
[2021-07-05 14:24] LABS: Appearance CLOUDY (CLEAR); Bilirubin NEGATIVE (NEGATIVE); Glucose NEGATIVE (NEGATIVE)
[2021-07-05 14:25] LABS: Absolute Neutrophil Ct (ANC) 3.69 (1.4-6.9); Basophil (Absolute #) 0.04 (0-0.4); Eosinophil % 4.4 % (0.00-5.0); Eosinophil (Absolute #) 0.28 (0-0.5); Hematocrit 31.6 % (35-47); Hemoglobin 9.8 gm/dl (12.0-16.0); INR 1.69 (0.8-3.0); Ketones NEGATIVE (NEGATIVE); Lymphocyte (Absolute #) 1.45 (1.0-4.6); Lymphocytes % 22.7 % (24.0-44.0); Mean Cell Volume 100.6 fl (78-100); Mean Corpuscular Hemoglobin 31.2 pg (26-32); Mean Platelet Volume 11.8 fl (7.5-11.0); Monocyte (Absolute #) 0.92 (0.0-1.3); Monocytes % 14.4 % (0.0-12.0); Neutrophil % 57.9 % (36.0-66.0); Nitrite POSITIVE (NEGATIVE); PROTIME 19.9 SECONDS (9.4-12.5); Platelet Count 137 K/mm3 (150-450); Protein,Urine Dip 30 (Negative); RBC SMALL Ery/ul (0-5); Red Blood Count 3.14 M/mm3 (4.1-5.4); Red Cell Distribution Width 16.1 % (11.5-14.0); Specific Gravity 1.015 (1.005-1.025); Urine Cultured Indicated? ORDERED SEPARATELY; Urobilinogen 1 mg/dL (0-1); White Blood Count 6.4 K/mm3 (4.0-10.5)
[2021-07-05] MEDS ORDERED: Merrem 1 GM 1 G in Sodium Chloride 100ML MINI-BAG PLUS 100 ML IV ONE (14:26)
[2021-07-05 14:27] LABS: PTT 39.6 SECONDS (25.1-36.5)
[2021-07-05 14:30] LABS: Calcium 9.1 mg/dL (8.4-10.2); Creatinine 1 1.75 mg/dL (0.52-1.04); Total Protein 5.9 g/dL (6.3-8.2)
--- NOTE | 2021-07-05 14:41 | XRAY ---
Indication: Unresponsive. Sepsis. Multiple contiguous axial images obtained through the head without contrast. Comparison: [place] 2016 Base of brain slightly degraded by motion artifact. Age-appropriate global atrophy and minimal periventricular degenerative microvascular ischemia. No acute intracranial hemorrhage, abnormal extra-axial fluid collection, or mass effect. Fourth ventricle is midline without hydrocephalus. Bony calvarium intact. Impression: Motion artifact. Continued grossly nonacute senile brain.
--- NOTE | 2021-07-05 14:45 | XRAY ---
Indication: Unresponsive. Sepsis. Multiple contiguous axial images obtained through the chest without contrast. Comparison: None Right shoulder arthroplasty produces extreme beam artifact. Also mild respiration artifact throughout the study. Lungs demonstrates mild scattered fibrosis/scarring greatest in lung bases. Tiny bibasilar effusions, left greater than right. No suspicious pulmonary mass or pneumothorax. Heart is markedly enlarged with multiple remnant stimulator leads. Aorta is moderately arteriosclerotic without aneurysm. Small calcified nodes in the AP window. No pathologic mediastinal lymphadenopathy. Small hiatal hernia. Bony thorax intact with osteopenia, moderate degenerative changes throughout the spine, and sternotomy wires.. Limited upper abdomen demonstrates small perihepatic and perisplenic free fluid. Impression: 1. Beam artifact from right shoulder arthroplasty and respiration artifact. 2. Marked cardiomegaly with tiny bibasilar effusions. Rule out cardiac decompensation/CHF. Small perihepatic/perisplenic fluid may be related. 3. Chronic findings including small hiatal hernia, chronic bony findings, and old granulomatous disease.
[2021-07-05 14:48] LABS: Dipstick done @ ? MAIN LAB
[2021-07-05] MEDS ORDERED: Sodium Chloride 100ML MINI-BAG PLUS 100 ML IV ONE (14:50)
[2021-07-05] MEDS ORDERED: Merrem 1 GM IV ONE (14:50)
[2021-07-05 15:14] LABS: A-aADO2 38; ABG HEMOGLOBIN 9.8; ABG POTASSIUM 3.8 (3.5-5.1); ABG SITE RIGHT RADIAL; ALLEN TEST OK? YES; ARTERIAL BLD GAS O2 SATURATION 98.8 % (95-100); ARTERIAL BLOOD GAS FIO2 28 %; ARTERIAL BLOOD GAS PCO2 54 mmHg (35-45); ARTERIAL BLOOD GAS PO2 94 mmHg (75-100); CARBOXYHEMOGLOBIN 1.6 % THgb (0.0-6.9); HCO3- 33.4 (22-28); Methhemoglobin 1.1 % (1.4-1.5)
--- NOTE | 2021-07-05 15:32 | ERPHSYRPT ---
- History of Present Illness Source: EMS Exam Limitations: clinical condition Patient Subjective Stated Complaint: Pt was sent from [facility] at [facility] due to AMS and became unresponsive and EMS came to [facility] instead of continuing on to [facility] Nursing Assessment: Pt brought to the ER by EMS due to being unresponsive, pt had been going downhill at the [facility] for the past couple of days and finally sent her in today, hypertensive, wounds to left lower leg that is wrapped, pt is to be taking lactulose three times a day and she has not been alert enough to take her medication for the past couple of days, pt has landry pitting edema throughout body, mcdowell catheter was placed upon arrival to the ED, pt has scattered bruising on her body with a dark purple bruise on her left breast, bruising up and down landry arms, pt opens eyes but is unable to respond Physician History: 76 yo wf w multiple medical problems from [facility] presents per [facility] w altered LOC. Pt was supposed to be going to [facility][1] but diverted to [facility]. Pt is minimally responsive w adequate airway upon arrival. She is currently being treated for hepatic encephalopathy. Timing/Duration: other (2-3 days) Modifying Factors: Improves With: nothing Allergies/Adverse Reactions: adhesive Allergy (Verified 07/05/21 14:47) latex Allergy (Verified 07/05/21 14:47) Penicillins Allergy (Verified 07/05/21 14:47) meperidine HCl [From Demerol] Adverse Reaction (Verified 07/05/21 14:47) nifedipine [From Procardia] Adverse Reaction (Verified 07/05/21 14:47) Home Medications: Acetaminophen 325 mg [Tylenol 325 mg] 650 mg PO Q4H PRN PRN 07/25/17 [History] Apixaban [Eliquis 5 mg Tablet] 5 mg PO BID 07/25/17 [History] Atorvastatin Calcium [Lipitor 40Mg] 40 mg PO DAILY 07/25/17 [History] Magnesium Oxide 400 mg [Mag-Ox 400] 400 mg PO DAILY 07/25/17 [History] Omeprazole 20 MG [Prilosec 20 mg] 20 mg PO DAILY 07/25/17 [History] Pregabalin [Lyrica 150Mg] 150 mg PO BID 07/25/17 [History] Metoprolol Tartrate 50 mg [Lopressor 50 MG] 50 mg PO BID 02/20/20 [History] Allopurinol 100 mg [Zyloprim 100 mg] 1 ea PO DAILY 05/08/21 [History] Amino Acids/Protein Hydrolys [Pro-Stat Awc Liquid] 30 ml PO BID 05/08/21 [History] Bisacodyl 10 mg [Dulcolax 10 MG SUPP] 1 ea RC DAILY PRN 05/08/21 [History] Bisacodyl 5 mg [Dulcolax 5 mg] 10 mg PO DAILY PRN 05/08/21 [History] Bumetanide 2 mg PO DAILY 05/08/21 [History] Cranberry Fruit Concentrate [Azo Cranberry] 1 ea PO DAILY 05/08/21 [History] Cyanocobalamin (Vitamin B-12) [Vitamin B-12] 1,000 mcg PO DAILY 05/08/21 [History] Darbepoetin Jose 60 Mcg [Aranesp 60 Mcg Syringe] 0.3 ml SQ UD 05/08/21 [History] Ergocalciferol (Vitamin D2) [Vitamin D2] 50 mcg PO DAILY 05/08/21 [History] Glucagon [Gvoke Hypopen 1-Pack] 0.5 mg SQ Q24H PRN 05/08/21 [History] Hydralazine HCl 10 mg PO TID 05/08/21 [History] Insulin Detemir [Levemir] 20 units SQ DAILY 05/08/21 [History] Insulin Lispro 7 unit SQ AC 05/08/21 [History] Insulin Lispro [Humalog] 1 unit SQ TID 05/08/21 [History] Isosorbide Dinitrate 10 mg PO TID 05/08/21 [History] Lanolin Alcohol/Mo/W.pet/[place] [Eucerin Cream] 454 gm TP DAILY 05/08/21 [History] Magnesium Hydroxide 30 ml [Milk of Magnesia 30 ml] 30 ml PO Q6HPRN PRN 05/08/21 [History] Polyethylene Glycol 3350 [Miralax] 1 ea PO DAILY PRN 05/08/21 [History] Potassium Chloride [Klor-Con 10] 10 meq PO BID 05/08/21 [History] Sennosides/Docusate Sodium [Senna-S Tablet] 1 each PO BID 05/08/21 [History] Doxycycline Hyclate 100 mg [Vibramycin 100 MG] 100 mg PO BID 07/05/21 [History] Lactulose [Lactulose 20 gm/30Ml Ud Cup] 20 gm PO TID 07/05/21 [History] Hx Tetanus, Diphtheria Vaccination/Date Given: Yes Hx Influenza Vaccination/Date Given: Yes Hx Pneumococcal Vaccination/Date Given: Yes Travel Risk - International Travel Have you traveled outside of the country in past 3 weeks: No - Coronavirus Screening Are you exhibiting any of the following symptoms?: No Close contact with a COVID-19 positive Pt in past 14-21 Days: No - Vaccine Status Have you recieved a Covid-19 vaccination: Yes Before School Babysitter: Unknown - Vaccination Dates Date of 2cond Vaccination (if applicable): 2020 Dates if Unknown: ? - Review of Systems All Other Systems: Unable due to condition - Past Medical History Pertinent Past Medical History: Yes Neurological History: No Pertinent History ENT History: Cataracts Cardiac History: Hypertension, Myocardial Infarction (DC) Respiratory History: Sleep Apnea Endocrine Medical History: Diabetes Type II Musculoskeletal History: Arthritis GI Medical History: Gallbladder Disease History: No Pertinent History Psycho-Social History: No Pertinent History Female Reproductive Disorders: No Pertinent History Other Medical History: CPAP, double by pass, [address] in left ventrical, - Past Surgical History Past Surgical History: Yes Neuro Surgical History: No Pertinent History Cardiac: CABG, Cardiac Catheterization, Cardiac Stent Respiratory: No Pertinent History Gastrointestinal: Appendectomy, Cholecystectomy Genitourinary: No Pertinent History Musculoskeletal: Joint Replacement Female Surgical History: Hysterectomy Other Surgical History: KNEE REPLACEMENT, right shoulder replacement - Social History Smoking Status: Never smoker Exposure to second hand smoke: No Drug Use: none Patient Lives Alone: No - Nursing Vital Signs Nursing Vital Signs: Initial Vital Signs Pulse Rate 71 07/05/21 13:52 Respiratory Rate 21 07/05/21 13:52 Blood Pressure 142/61 07/05/21 13:52 O2 Sat by Pulse Oximetry 97 07/05/21 13:52 Pain Scale Pain Intensity 0 97% sats on 2L O2 NC/Hypertensive - Physical Exam General Appearance: mild distress, other (Pt minimally alert w GCS of 11 but maintaining airway) Eye Exam: PERRL/EOMI, eyes nml inspection Ears, Nose, Throat Exam: normal ENT inspection, dry mucous membranes Neck Exam: normal inspection Respiratory Exam: crackles/rales (Rales 1/4 up B) Cardiovascular Exam: other (Ir-Ir wS3 and 2/6 SU) Gastrointestinal/Abdomen Exam: soft (Morbidly obese) Back Exam: other (No sacral pressure ulcerations) Extremity Exam: other (Skin very dry/LLE w gauze wrap w date 07/05/21) Neurologic Exam: other (GCS 11/Pt maintaining airway and will follow minimal commands(Squeezes fingers and wiggles toes)) Skin Exam: normal color Lymphatic Exam: No adenopathy SpO2 Interpretation: normal SpO2: 97 O2 Delivery: Nasal Cannula (2L O2 NC) - Course Nursing assessment & vital signs reviewed: Yes EKG Interpreted by Me: RATE (Afib/Rate 76/Frequent PVC's/RBBB/LAFB/Prolonged QT- QTc) - CT Exams Head CT Interpretation: Discussed w/radiologist (Ct head neg(Motion artifact)) Chest CT Interpretation: Discussed w/radiologist (Beam artifact/Cardiomegaly w tiny bibasialr effusions) Ordered Tests: Active Orders 24 hr Category Date Time Status EKG-ER Only STAT Care 07/05/21 13:44 Completed IV Insertion STAT Care 07/05/21 13:44 Completed CHEST WITHOUT CONTRAST [CT] Stat Exams 07/05/21 13:49 Completed HEAD WITHOUT CONTRAST [CT] Stat Exams 07/05/21 13:50 Completed ABG [ARTERIAL BLOOD GASES] Stat Lab 07/05/21 15:10 Completed ABG [ARTERIAL BLOOD GASES] Urgent Lab 07/05/21 15:13 Ordered ARTERIAL BLOOD GASES Stat Lab 07/05/21 13:44 Completed BLOOD CULTURE Stat Lab 07/05/21 13:45 Received CBC W DIFF Stat Lab 07/05/21 13:45 Completed CMP Stat Lab 07/05/21 13:45 Completed CULTURE,URINE Stat Lab 07/05/21 13:52 Ordered Lactic Acid Stat Lab 07/05/21 13:45 Completed NT PRO BNP Stat Lab 07/05/21 14:10 Completed POCT GLUCOSE Stat Lab 07/05/21 18:36 Completed PROTIME WITH INR Stat Lab 07/05/21 13:45 Completed PTT Stat Lab 07/05/21 13:45 Completed TROPONIN Q3H Lab 07/05/21 14:00 Completed TROPONIN Q3H Lab 07/05/21 17:10 Completed Medication Summary Discontinued Medications Generic Name Dose Route Start Last Admin Trade Name Freq PRN Reason Stop Dose Admin Furosemide 40 mg 07/05/21 15:50 07/05/21 15:54 Furosemide 40 Mg/4 Ml Vial IV 07/05/21 15:51 40 mg STAT ONE Administration Furosemide Confirm 07/05/21 15:53 Furosemide 40 Mg/4 Ml Vial Administered 07/05/21 15:54 Dose 40 mg .ROUTE .STK-MED ONE Meropenem 1 g/ Sodium Chloride 100 mls @ 200 mls/hr 07/05/21 14:26 07/05/21 14:51 IV 07/05/21 14:55 200 mls/hr STAT ONE Administration Sodium Chloride Confirm 07/05/21 14:50 Sodium Chloride 100ml Mini-Bag Plus Administered 07/05/21 14:51 Dose 100 mls @ ud IV .STK-MED ONE Meropenem Confirm 07/05/21 14:50 Meropenem 1 Gm Vial Administered 07/05/21 14:51 Dose 1 g IV .STK-MED ONE Lab/Rad Data: Laboratory Result Diagrams 07/05/21 13:45 07/05/21 13:45 Laboratory Results 07/05/21 07/05/21 07/05/21 Range/Units 18:36 17:10 15:29 WBC (4.0-10.5) K/mm3 RBC (4.1-5.4) M/mm3 Hgb (12.0-16.0) gm/dl Hct (35-47) % MCV (78-100) fl MCH (26-32) pg MCHC (32-36) g/dl RDW (11.5-14.0) % Plt Count (150-450) K/mm3 MPV (7.5-11.0) fl Gran % (36.0-66.0) % Eos # (Auto) (0-0.5) Absolute Lymphs (auto) (1.0-4.6) Absolute Monos (auto) (0.0-1.3) Lymphocytes % (24.0-44.0) % Monocytes % (0.0-12.0) % Eosinophils % (0.00-5.0) % Basophils % (0.0-0.4) % Absolute Granulocytes (1.4-6.9) Basophils # (0-0.4) PT (9.4-12.5) SECONDS INR (0.8-3.0) APTT (25.1-36.5) SECONDS Puncture Site pCO2 (35-45) mmHg pO2 (75-100) mmHg Base Excess (-2.0-2.0) O2 Saturation (94-100) g/dF ABG pH (7.35-7.45) ABG HCO3 (22-28) ABG O2 Sat (Measured) (95-100) % Earl Test A-a Gradient a/A Ratio Hemoglobin Carboxyhemoglobin (0.0-6.9) % THgb Methemoglobin (1.4-1.5) % Potassium (3.5-5.1) Temperature C POC O2 Flow Rate % Sodium (137-145) mmol/L Chloride (98-107) mmol/L Carbon Dioxide (22-30) mmol/L Anion Gap (5-15) MEQ/L BUN (7-17) mg/dL Creatinine (0.52-1.04) mg/dL Estimated GFR ML/MIN Glucose (74-106) mg/dL POC Glucometer 95 (74 to 106) mg/dL Lactic Acid (0.4-2.0) Calcium (8.4-10.2) mg/dL Total Bilirubin (0.2-1.3) mg/dL AST (14-36) U/L ALT (0-35) U/L Alkaline Phosphatase (38-126) U/L Ammonia (9-30) umol/L Troponin I 0.023 (0.000-0.034) ng/mL NT-Pro-B Natriuret Pep (0-1800) pg/mL Serum Total Protein (6.3-8.2) g/dL Albumin (3.5-5.0) g/dL Urinalys Dipstick Clnc Urine Color (YELLOW) Urine Appearance (CLEAR) Urine pH (5-6) Ur Specific [place] (1.005-1.025) POC Urine Protein Conf (Negative) Urine Ketones (NEGATIVE) Urine Nitrite (NEGATIVE) Urine Bilirubin (NEGATIVE) Urine Urobilinogen (0-1) mg/dL Urine Leukocytes (NEGATIVE) Urine WBC (Auto) (0-5) /HPF Urine RBC (Auto) (0-2) /HPF U Epithel Cells (Auto) (FEW) /HPF Urine Bacteria (Auto) (NEGATIVE) /HPF Urine RBC (0-5) Josh/ul Urine Mucus (Auto) (NEGATIVE) /HPF Ur Culture Indicated? Urine Glucose (NEGATIVE) mg/dL Influenza Type A Ag NEGATIVE (NEGATIVE) Influenza Type B Ag NEGATIVE (NEGATIVE) RSV (PCR) NEGATIVE (Negative) SARS-CoV-2 (PCR) NEGATIVE (NEGATIVE) 07/05/21 07/05/21 07/05/21 Range/Units 15:10 14:10 14:00 WBC (4.0-10.5) K/mm3 RBC (4.1-5.4) M/mm3 Hgb (12.0-16.0) gm/dl Hct (35-47) % MCV (78-100) fl MCH (26-32) pg MCHC (32-36) g/dl RDW (11.5-14.0) % Plt Count (150-450) K/mm3 MPV (7.5-11.0) fl Gran % (36.0-66.0) % Eos # (Auto) (0-0.5) Absolute Lymphs (auto) (1.0-4.6) Absolute Monos (auto) (0.0-1.3) Lymphocytes % (24.0-44.0) % Monocytes % (0.0-12.0) % Eosinophils % (0.00-5.0) % Basophils % (0.0-0.4) % Absolute Granulocytes (1.4-6.9) Basophils # (0-0.4) PT (9.4-12.5) SECONDS INR (0.8-3.0) APTT (25.1-36.5) SECONDS Puncture Site RIGHT RADIAL pCO2 54 H (35-45) mmHg pO2 94 (75-100) mmHg Base Excess 7.0 H (-2.0-2.0) O2 Saturation 96.0 (94-100) g/dF ABG pH 7.40 (7.35-7.45) ABG HCO3 33.4 H* (22-28) ABG O2 Sat (Measured) 98.8 (95-100) % Earl Test YES A-a Gradient 38 a/A Ratio 0.71 Hemoglobin 9.8 Carboxyhemoglobin 1.6 (0.0-6.9) % THgb Methemoglobin 1.1 L (1.4-1.5) % Potassium 3.8 (3.5-5.1) Temperature 37.0 C POC O2 Flow Rate 28 % Sodium (137-145) mmol/L Chloride (98-107) mmol/L Carbon Dioxide (22-30) mmol/L Anion Gap (5-15) MEQ/L BUN (7-17) mg/dL Creatinine (0.52-1.04) mg/dL Estimated GFR ML/MIN Glucose (74-106) mg/dL POC Glucometer (74 to 106) mg/dL Lactic Acid (0.4-2.0) Calcium (8.4-10.2) mg/dL Total Bilirubin (0.2-1.3) mg/dL AST (14-36) U/L ALT (0-35) U/L Alkaline Phosphatase (38-126) U/L Ammonia (9-30) umol/L Troponin I 0.021 (0.000-0.034) ng/mL NT-Pro-B Natriuret Pep 2310 H (0-1800) pg/mL Serum Total Protein (6.3-8.2) g/dL Albumin (3.5-5.0) g/dL Urinalys Dipstick Clnc Urine Color (YELLOW) Urine Appearance (CLEAR) Urine pH (5-6) Ur Specific [place] (1.005-1.025) POC Urine Protein Conf (Negative) Urine Ketones (NEGATIVE) Urine Nitrite (NEGATIVE) Urine Bilirubin (NEGATIVE) Urine Urobilinogen (0-1) mg/dL Urine Leukocytes (NEGATIVE) Urine WBC (Auto) (0-5) /HPF Urine RBC (Auto) (0-2) /HPF U Epithel Cells (Auto) (FEW) /HPF Urine Bacteria (Auto) (NEGATIVE) /HPF Urine RBC (0-5) Josh/ul Urine Mucus (Auto) (NEGATIVE) /HPF Ur Culture Indicated? Urine Glucose (NEGATIVE) mg/dL Influenza Type A Ag (NEGATIVE) Influenza Type B Ag (NEGATIVE) RSV (PCR) (Negative) SARS-CoV-2 (PCR) (NEGATIVE) 07/05/21 07/05/21 07/05/21 Range/Units 13:45 13:45 13:45 WBC (4.0-10.5) K/mm3 RBC (4.1-5.4) M/mm3 Hgb (12.0-16.0) gm/dl Hct (35-47) % MCV (78-100) fl MCH (26-32) pg MCHC (32-36) g/dl RDW (11.5-14.0) % Plt Count (150-450) K/mm3 MPV (7.5-11.0) fl Gran % (36.0-66.0) % Eos # (Auto) (0-0.5) Absolute Lymphs (auto) (1.0-4.6) Absolute Monos (auto) (0.0-1.3) Lymphocytes % (24.0-44.0) % Monocytes % (0.0-12.0) % Eosinophils % (0.00-5.0) % Basophils % (0.0-0.4) % Absolute Granulocytes (1.4-6.9) Basophils # (0-0.4) PT 19.9 H (9.4-12.5) SECONDS INR 1.69 (0.8-3.0) APTT 39.6 H (25.1-36.5) SECONDS Puncture Site pCO2 (35-45) mmHg pO2 (75-100) mmHg Base Excess (-2.0-2.0) O2 Saturation (94-100) g/dF ABG pH (7.35-7.45) ABG HCO3 (22-28) ABG O2 Sat (Measured) (95-100) % Earl Test A-a Gradient a/A Ratio Hemoglobin Carboxyhemoglobin (0.0-6.9) % THgb Methemoglobin (1.4-1.5) % Potassium (3.5-5.1) Temperature C POC O2 Flow Rate % Sodium (137-145) mmol/L Chloride (98-107) mmol/L Carbon Dioxide (22-30) mmol/L Anion Gap (5-15) MEQ/L BUN (7-17) mg/dL Creatinine (0.52-1.04) mg/dL Estimated GFR ML/MIN Glucose (74-106) mg/dL POC Glucometer (74 to 106) mg/dL Lactic Acid 0.7 (0.4-2.0) Calcium (8.4-10.2) mg/dL Total Bilirubin (0.2-1.3) mg/dL AST (14-36) U/L ALT (0-35) U/L Alkaline Phosphatase (38-126) U/L Ammonia 56 H (9-30) umol/L Troponin I (0.000-0.034) ng/mL NT-Pro-B Natriuret Pep (0-1800) pg/mL Serum Total Protein (6.3-8.2) g/dL Albumin (3.5-5.0) g/dL Urinalys Dipstick Clnc Urine Color (YELLOW) Urine Appearance (CLEAR) Urine pH (5-6) Ur Specific [place] (1.005-1.025) POC Urine Protein Conf (Negative) Urine Ketones (NEGATIVE) Urine Nitrite (NEGATIVE) Urine Bilirubin (NEGATIVE) Urine Urobilinogen (0-1) mg/dL Urine Leukocytes (NEGATIVE) Urine WBC (Auto) (0-5) /HPF Urine RBC (Auto) (0-2) /HPF U Epithel Cells (Auto) (FEW) /HPF Urine Bacteria (Auto) (NEGATIVE) /HPF Urine RBC (0-5) Josh/ul Urine Mucus (Auto) (NEGATIVE) /HPF Ur Culture Indicated? Urine Glucose (NEGATIVE) mg/dL Influenza Type A Ag (NEGATIVE) Influenza Type B Ag (NEGATIVE) RSV (PCR) (Negative) SARS-CoV-2 (PCR) (NEGATIVE) 07/05/21 07/05/21 07/05/21 Range/Units 13:45 13:45 13:45 WBC 6.4 (4.0-10.5) K/mm3 RBC 3.14 L (4.1-5.4) M/mm3 Hgb 9.8 L (12.0-16.0) gm/dl Hct 31.6 L (35-47) % MCV 100.6 H (78-100) fl MCH 31.2 (26-32) pg MCHC 31.0 L (32-36) g/dl RDW 16.1 H (11.5-14.0) % Plt Count 137 L (150-450) K/mm3 MPV 11.8 H (7.5-11.0) fl Gran % 57.9 (36.0-66.0) % Eos # (Auto) 0.28 (0-0.5) Absolute Lymphs (auto) 1.45 (1.0-4.6) Absolute Monos (auto) 0.92 (0.0-1.3) Lymphocytes % 22.7 L (24.0-44.0) % Monocytes % 14.4 H (0.0-12.0) % Eosinophils % 4.4 (0.00-5.0) % Basophils % 0.6 (0.0-0.4) % Absolute Granulocytes 3.69 (1.4-6.9) Basophils # 0.04 (0-0.4) PT (9.4-12.5) SECONDS INR (0.8-3.0) APTT (25.1-36.5) SECONDS Puncture Site pCO2 (35-45) mmHg pO2 (75-100) mmHg Base Excess (-2.0-2.0) O2 Saturation (94-100) g/dF ABG pH (7.35-7.45) ABG HCO3 (22-28) ABG O2 Sat (Measured) (95-100) % Earl Test A-a Gradient a/A Ratio Hemoglobin Carboxyhemoglobin (0.0-6.9) % THgb Methemoglobin (1.4-1.5) % Potassium 4.0 (3.5-5.1) Temperature C POC O2 Flow Rate % Sodium 143 (137-145) mmol/L Chloride 104 (98-107) mmol/L Carbon Dioxide 33 H (22-30) mmol/L Anion Gap 11.0 (5-15) MEQ/L BUN 43 H (7-17) mg/dL Creatinine 1.75 H (0.52-1.04) mg/dL Estimated GFR 30.0 ML/MIN Glucose 84 (74-106) mg/dL POC Glucometer (74 to 106) mg/dL Lactic Acid (0.4-2.0) Calcium 9.1 (8.4-10.2) mg/dL Total Bilirubin 2.00 H (0.2-1.3) mg/dL AST 21 (14-36) U/L ALT 8 (0-35) U/L Alkaline Phosphatase 141 H (38-126) U/L Ammonia (9-30) umol/L Troponin I (0.000-0.034) ng/mL NT-Pro-B Natriuret Pep (0-1800) pg/mL Serum Total Protein 5.9 L (6.3-8.2) g/dL Albumin 3.0 L (3.5-5.0) g/dL Urinalys Dipstick Clnc MAIN LAB Urine Color YELLOW (YELLOW) Urine Appearance CLOUDY (CLEAR) Urine pH 8.0 (5-6) Ur Specific [place] 1.015 (1.005-1.025) POC Urine Protein Conf 30 (Negative) Urine Ketones NEGATIVE (NEGATIVE) Urine Nitrite POSITIVE (NEGATIVE) Urine Bilirubin NEGATIVE (NEGATIVE) Urine Urobilinogen 1 (0-1) mg/dL Urine Leukocytes LARGE (NEGATIVE) Urine WBC (Auto) >100 (0-5) /HPF Urine RBC (Auto) 6-10 (0-2) /HPF U Epithel Cells (Auto) RARE (FEW) /HPF Urine Bacteria (Auto) MODERATE (NEGATIVE) /HPF Urine RBC SMALL (0-5) Josh/ul Urine Mucus (Auto) SLIGHT (NEGATIVE) /HPF Ur Culture Indicated? ORDERED SEPARATELY Urine Glucose NEGATIVE (NEGATIVE) mg/dL Influenza Type A Ag (NEGATIVE) Influenza Type B Ag (NEGATIVE) RSV (PCR) (Negative) SARS-CoV-2 (PCR) (NEGATIVE) 07/05/21 Range/Units 13:44 WBC (4.0-10.5) K/mm3 RBC (4.1-5.4) M/mm3 Hgb (12.0-16.0) gm/dl Hct (35-47) % MCV (78-100) fl MCH (26-32) pg MCHC (32-36) g/dl RDW (11.5-14.0) % Plt Count (150-450) K/mm3 MPV (7.5-11.0) fl Gran % (36.0-66.0) % Eos # (Auto) (0-0.5) Absolute Lymphs (auto) (1.0-4.6) Absolute Monos (auto) (0.0-1.3) Lymphocytes % (24.0-44.0) % Monocytes % (0.0-12.0) % Eosinophils % (0.00-5.0) % Basophils % (0.0-0.4) % Absolute Granulocytes (1.4-6.9) Basophils # (0-0.4) PT (9.4-12.5) SECONDS INR (0.8-3.0) APTT (25.1-36.5) SECONDS Puncture Site LEFT RADIAL pCO2 51 H (35-45) mmHg pO2 96 (75-100) mmHg Base Excess 8.8 H (-2.0-2.0) O2 Saturation 96.6 (94-100) g/dF ABG pH 7.44 (7.35-7.45) ABG HCO3 34.6 H* (22-28) ABG O2 Sat (Measured) 99.2 (95-100) % Earl Test YES A-a Gradient 40 a/A Ratio 0.71 Hemoglobin 9.6 Carboxyhemoglobin 1.5 (0.0-6.9) % THgb Methemoglobin 1.1 L (1.4-1.5) % Potassium 3.9 (3.5-5.1) Temperature 37.0 C POC O2 Flow Rate 28 % Sodium (137-145) mmol/L Chloride (98-107) mmol/L Carbon Dioxide (22-30) mmol/L Anion Gap (5-15) MEQ/L BUN (7-17) mg/dL Creatinine (0.52-1.04) mg/dL Estimated GFR ML/MIN Glucose (74-106) mg/dL POC Glucometer (74 to 106) mg/dL Lactic Acid (0.4-2.0) Calcium (8.4-10.2) mg/dL Total Bilirubin (0.2-1.3) mg/dL AST (14-36) U/L ALT (0-35) U/L Alkaline Phosphatase (38-126) U/L Ammonia (9-30) umol/L Troponin I (0.000-0.034) ng/mL NT-Pro-B Natriuret Pep (0-1800) pg/mL Serum Total Protein (6.3-8.2) g/dL Albumin (3.5-5.0) g/dL Urinalys Dipstick Clnc Urine Color (YELLOW) Urine Appearance (CLEAR) Urine pH (5-6) Ur Specific [place] (1.005-1.025) POC Urine Protein Conf (Negative) Urine Ketones (NEGATIVE) Urine Nitrite (NEGATIVE) Urine Bilirubin (NEGATIVE) Urine Urobilinogen (0-1) mg/dL Urine Leukocytes (NEGATIVE) Urine WBC (Auto) (0-5) /HPF Urine RBC (Auto) (0-2) /HPF U Epithel Cells (Auto) (FEW) /HPF Urine Bacteria (Auto) (NEGATIVE) /HPF Urine RBC (0-5) Josh/ul Urine Mucus (Auto) (NEGATIVE) /HPF Ur Culture Indicated? Urine Glucose (NEGATIVE) mg/dL Influenza Type A Ag (NEGATIVE) Influenza Type B Ag (NEGATIVE) RSV (PCR) (Negative) SARS-CoV-2 (PCR) (NEGATIVE) - Progress Progress Note: 07/05/21 16:05 1gm Meropenem 40mg IV Lasix 07/05/21 16:[address] Mitchell about pt who wants to send her to a larger facility if family does not want pt to be a DNR. 07/05/21 17:[address] Padron at [facility][1] 07/05/21 23:09 Spoke w x2 on phone and when he arrived to ER. EMS stated that pt wished to be a DNR per [facility] yesterday, but stated that pt wanted to be a full code. Intubation considered, but since pt maintained good airway w adequate ABG x2, it was decided to hold off. Counseled pt/family regarding: lab results, diagnosis, rad results - Departure Departure Disposition: Transfer Clinical Impression: Hepatic encephalopathy, UTI (urinary tract infection), Renal failure, Congestive heart failure (CHF) Condition: Stable Critical Care Time: Yes Critical Care Time(excluding separately billable procedures): Critical 30-74 mins Referrals: SULAIMAN MITCHELL MD [Primary Care Provider] - Follow up/PCP as directed Instructions: Heart Failure
[2021-07-05] MEDS ORDERED: Lasix 40 MG/4 ML IV ONE (15:50)
[2021-07-05] MEDS ORDERED: Lasix 40 MG/4 ML ONE (15:53)
[2021-07-05 16:10] LABS: INFLUENZA A NEGATIVE (NEGATIVE); INFLUENZA B NEGATIVE (NEGATIVE); RESPIRATORY SYNCTIAL VIRUS NEGATIVE (Negative); SARS-CoV-2 Xpert Express NEGATIVE (NEGATIVE)
[2021-07-05 19:19] VITALS: BP 170/79; PULSE 82; O2SAT 97
== END 2021-07-05 19:20 | disposition short-term general hospital (02) ==
LOC: ED 13:43
DX: K72.90 Hepatic failure, unspecified without coma (principal); N39.0 Urinary tract infection, site not specified; N19 Unspecified kidney failure; I11.0 Hypertensive heart disease with heart failure; I50.9 Heart failure, unspecified; R79.89 Other specified abnormal findings of blood chemistry; E11.9 Type 2 diabetes mellitus without complications; Z79.01 Long term (current) use of anticoagulants; Z79.4 Long term (current) use of insulin; Z79.899 Other long term (current) drug therapy
CPT/HCPCS: 0241U; 36000; 36415; 36600; 70450; 71250; 80053; 81015; 82140; 82375; 82803; 82947; 83605; 83880; 84484; 85025; 85610; 85730; 87040; 87077; 87086; 87186; 93005; 96365; 96374; 99285; J1940

== ENCOUNTER 2021-07-15 15:06 | Emergency (ER) | payer MEDICARE, OTHER ==
--- NOTE | 2021-07-15 15:49 | ERPHSYRPT ---
- History of Present Illness Time Seen by Provider: 07/15/21 15:48 Source: patient, EMS Exam Limitations: no limitations Patient Subjective Stated Complaint: Pt groans in pain. Triage Nursing Assessment: Pt presents to ER from [facility] in [place], [place]. Pt arrives via ambulance for complaints of Right hand injury. prison staff state they believe this occurred possibly yesterday and they did an XR and it resulted WNL. Pt arrives and right hand is dressed but blood is oozing through dressing. Dressing removed and large open wound noted to hand. Hand was swollen and appeared to have a lot of fluid built up under the skin of hand and into finger tips. Pt had some pressure relieved by MD and area redressed. Pt is alert and will answer simple questions by nodding head "yes and no". Pt appears to be a total assist. Noted dressings to bilateral lower extremities. Pt skin is slightly jaundice, warm, and dry. Respirations are easy and unlabored at this time. Pt is on 2L o2 via NC regularly. Pt has no further complaints other than the pain in her hand. Physician History: Patient is a 76-year-old female who [facility]. An x-ray was obtained which was negative for fractures or dislocations. Currently today he was noted to be bleeding and an ambulance was called the dressing had been placed prior to EMSs arrival that bled through the bandage and they simply supplemented that. When she arrived here we took the bandage off she has a huge hematoma with 2 lacerations on the dorsum of her hand this is probably a complication of her injury and the medicine Eliquis. Occurred: yesterday Method of Injury: unknown Quality: constant Severity of Pain-Max: moderate Severity of Pain-Current: moderate Extremities Pain Location: hand: right (Massive hematoma dorsum of the right hand) Modifying Factors: Improves With: movement Allergies/Adverse Reactions: adhesive Allergy (Verified 07/15/21 15:30) latex Allergy (Verified 07/15/21 15:30) Penicillins Allergy (Verified 07/15/21 15:30) meperidine HCl [From Demerol] Adverse Reaction (Verified 07/15/21 15:30) nifedipine [From Procardia] Adverse Reaction (Verified 07/15/21 15:30) Home Medications: Acetaminophen 325 mg [Tylenol 325 mg] 650 mg PO Q4H PRN PRN 07/25/17 [History] Apixaban [Eliquis 5 mg Tablet] 5 mg PO BID 07/25/17 [History] Atorvastatin Calcium [Lipitor 40Mg] 40 mg PO DAILY 07/25/17 [History] Magnesium Oxide 400 mg [Mag-Ox 400] 400 mg PO DAILY 07/25/17 [History] Omeprazole 20 MG [Prilosec 20 mg] 20 mg PO DAILY 07/25/17 [History] Pregabalin [Lyrica 150Mg] 150 mg PO BID 07/25/17 [History] Metoprolol Tartrate 50 mg [Lopressor 50 MG] 50 mg PO BID 02/20/20 [History] Allopurinol 100 mg [Zyloprim 100 mg] 1 ea PO DAILY 05/08/21 [History] Amino Acids/Protein Hydrolys [Pro-Stat Awc Liquid] 30 ml PO BID 05/08/21 [History] Bisacodyl 10 mg [Dulcolax 10 MG SUPP] 1 ea RC DAILY PRN 05/08/21 [History] Bisacodyl 5 mg [Dulcolax 5 mg] 10 mg PO DAILY PRN 05/08/21 [History] Bumetanide 2 mg PO DAILY 05/08/21 [History] Cranberry Fruit Concentrate [Azo Cranberry] 1 ea PO DAILY 05/08/21 [History] Cyanocobalamin (Vitamin B-12) [Vitamin B-12] 1,000 mcg PO DAILY 05/08/21 [History] Darbepoetin Jose 60 Mcg [Aranesp 60 Mcg Syringe] 0.3 ml SQ UD 05/08/21 [History] Ergocalciferol (Vitamin D2) [Vitamin D2] 50 mcg PO DAILY 05/08/21 [History] Glucagon [Gvoke Hypopen 1-Pack] 0.5 mg SQ Q24H PRN 05/08/21 [History] Hydralazine HCl 10 mg PO TID 05/08/21 [History] Insulin Detemir [Levemir] 20 units SQ DAILY 05/08/21 [History] Insulin Lispro 7 unit SQ AC 05/08/21 [History] Insulin Lispro [Humalog] 1 unit SQ TID 05/08/21 [History] Isosorbide Dinitrate 10 mg PO TID 05/08/21 [History] Lanolin Alcohol/Mo/W.pet/[place] [Eucerin Cream] 454 gm TP DAILY 05/08/21 [History] Magnesium Hydroxide 30 ml [Milk of Magnesia 30 ml] 30 ml PO Q6HPRN PRN 05/08/21 [History] Polyethylene Glycol 3350 [Miralax] 1 ea PO DAILY PRN 05/08/21 [History] Potassium Chloride [Klor-Con 10] 10 meq PO BID 05/08/21 [History] Sennosides/Docusate Sodium [Senna-S Tablet] 1 each PO BID 05/08/21 [History] Doxycycline Hyclate 100 mg [Vibramycin 100 MG] 100 mg PO BID 07/05/21 [History] Lactulose [Lactulose 20 gm/30Ml Ud Cup] 20 gm PO TID 07/05/21 [History] Hx Tetanus, Diphtheria Vaccination/Date Given: Yes Hx Influenza Vaccination/Date Given: Yes Hx Pneumococcal Vaccination/Date Given: Yes Travel Risk - International Travel Have you traveled outside of the country in past 3 weeks: No - Coronavirus Screening Are you exhibiting any of the following symptoms?: No Close contact with a COVID-19 positive Pt in past 14-21 Days: No - Vaccine Status Have you recieved a Covid-19 vaccination: Yes Piler: Unknown - Vaccination Dates Date of 2cond Vaccination (if applicable): 2020 Dates if Unknown: unknown - Review of Systems Constitutional: No Fever, No Chills Eyes: No Symptoms Ears, Nose, & Throat: No Symptoms Respiratory: No Cough, No Dyspnea Cardiac: No Chest Pain, No Edema, No Syncope Abdominal/Gastrointestinal: No Abdominal Pain, No Nausea, No Vomiting, No Diarrhea Genitourinary Symptoms: No Dysuria Musculoskeletal: Other (Massive hematoma dorsum of the right hand 2 lacerations pressure dressing applied), No Back Pain, No Neck Pain Skin: No Rash Neurological: No Dizziness, No Focal Weakness, No Sensory Changes Psychological: No Symptoms Endocrine: No Symptoms All Other Systems: Reviewed and Negative - Past Medical History Pertinent Past Medical History: Yes Neurological History: No Pertinent History ENT History: Cataracts Cardiac History: Hypertension, Myocardial Infarction (DC) Respiratory History: Sleep Apnea Endocrine Medical History: Diabetes Type II Musculoskeletal History: Arthritis GI Medical History: Gallbladder Disease History: No Pertinent History Psycho-Social History: No Pertinent History Female Reproductive Disorders: No Pertinent History Other Medical History: CPAP, double by pass, [address] in left ventrical, - Past Surgical History Past Surgical History: Yes Neuro Surgical History: No Pertinent History Cardiac: CABG, Cardiac Catheterization, Cardiac Stent Respiratory: No Pertinent History Gastrointestinal: Appendectomy, Cholecystectomy Genitourinary: No Pertinent History Musculoskeletal: Joint Replacement Female Surgical History: Hysterectomy Other Surgical History: KNEE REPLACEMENT, right shoulder replacement - Social History Smoking Status: Never smoker Exposure to second hand smoke: No Drug Use: none Patient Lives Alone: No ([facility]) - Nursing Vital Signs Nursing Vital Signs: Initial Vital Signs Temperature 96.8 F 07/15/21 15:09 Pulse Rate 91 H 07/15/21 15:09 Respiratory Rate 18 07/15/21 15:09 Blood Pressure 134/71 07/15/21 15:09 O2 Sat by Pulse Oximetry 93 L 07/15/21 15:09 Pain Scale Pain Intensity 6 - Physical Exam General Appearance: alert Eyes, Ears, Nose, Throat Exam: moist mucous membranes Neck Exam: non-tender, supple Cardiovascular/Respiratory Exam: chest non-tender, normal breath sounds, regular rate/rhythm, no respiratory distress Abdominal Exam: non-tender, No guarding Back Exam: normal inspection, No vertebral tenderness Hand Exam: laceration (Right hand is remarkable for a huge hematoma with at least 2 lacerations skin sloughing and continued active bleeding. There is some motion finger to the fingers there are blisters lesions on the fingers.) Neuro/Tendon Exam: normal sensation, normal motor functions Mental Status Exam: alert, oriented x 3, cooperative Skin Exam: normal color, warm, dry SpO2: 93 - Course Nursing assessment & vital signs reviewed: Yes - Progress Progress: unchanged - Departure Departure Disposition: Transfer (We talked to the hospitalist, Dr Padron, at [facility] after speaking with Dr. Delong and the patient was excepted in transfer.) Clinical Impression: Traumatic hematoma of left hand Condition: Fair Critical Care Time: No Referrals: SULAIMAN MITCHELL MD [Primary Care Provider] - Follow up/PCP as directed
[2021-07-15 17:07] VITALS: BP 144/72; PULSE 57; O2SAT 98
== END 2021-07-15 17:34 | disposition short-term general hospital (02) ==
LOC: ED 15:06
DX: S60.221A Contusion of right hand, initial encounter (principal); S61.411A Laceration without foreign body of right hand, initial encounter; X58.XXXA Exposure to other specified factors, initial encounter; Y92.129 Unspecified place in nursing home as the place of occurrence of the external cause; I10 Essential (primary) hypertension; E11.9 Type 2 diabetes mellitus without complications; Z79.01 Long term (current) use of anticoagulants; Z79.4 Long term (current) use of insulin; Z79.899 Other long term (current) drug therapy
CPT/HCPCS: 36000; 99284